=== PATIENT | female | born 1980 | race Caucasian/White ===

== ENCOUNTER 2016-10-26 18:56 | Emergency (ER) | payer OTHER ==
[~2016-10-26] VITALS: Ht 175.3 cm; Wt 104.0 kg
[~2016-10-26 18:56] MED LIST: ALBU8.5H3 IH; ALPR1TAB PO; ALPR1TAB2 PO; CIPR500T PO; CITA40TA12 PO; CYCL10TA2 PO; DIPH25CA58 PO; DOXY100C2 PO; MIRANA; NAPR500T PO; ONDA4TAB10 PO; ONDA8TAB12 PO; PRED50TA PO; PROM25TA10 PO; TRAM50TA PO
--- NOTE | 2016-10-26 18:59 | ED.ADGEN ---
Past History Past Medical History: Anxiety, Asthma, Bipolar, Depression, Hypertension, UTI, Other Past Surgical History: Cholecystectomy, Other Smoking: Less than 1pk/day Alcohol Use: None Drug Use: Marijuana Adult General Chief Complaint Chief Complaint ".. I was working outside... and got really dizzy... and I got worried .. because .. I ve had a recently had a MRI.. and they said it had black spots... I am to follow up a [facility].... they think I may have MS or something... . I see Dr. Schwartz here locally..." HPI HPI Patient is a 36 year old female who presents with above hx and complaints. She states dizziness was episodic. It is not resolved. Patient denies any focal deficits currently. Patient has follow up with [facility] and primary. Patient does still smoke. She has extensive medical history including coronary artery disease and COPD. Recent diagnosis of abnormal findings on MRI possible MS. Review of Systems Review of Systems Constitutional: Denies fever or chills [] Eyes: Denies change in visual acuity, redness, or eye pain [] HENT: Denies nasal congestion or sore throat [] Respiratory: Denies cough or shortness of breath [] Cardiovascular: No additional information not addressed in HPI [] GI: Denies abdominal pain, nausea, vomiting, bloody stools or diarrhea [] : Denies dysuria or hematuria [] Musculoskeletal: Denies back pain or joint pain [] Integument: Denies rash or skin lesions [] Neurologic: Denies headache, focal weakness or sensory changes. Complaints of episodic dizziness Endocrine: Denies polyuria or polydipsia [] Family History Family History Noncontributory Current Medications Current Medications Current Medications Medications (Trade) Dose Ordered Sig/Brian Start Time Stop Time Status Last Admin Dose Admin Aspirin 324 mg 324 mg 1X ONCE 10/26/16 19:30 10/26/16 19:32 DC 10/26/16 19:30 324 MG Lactated Ringer's (Iv Lactated Ringers) 1,000 ml @ 1,000 mls/hr Q1H 10/26/16 19:30 10/26/16 21:57 DC 10/26/16 19:53 1,000 MLS/HR Potassium Chloride (KCl Oral Soln) 40 meq 1X ONCE 10/26/16 22:00 10/26/16 22:00 DC 10/26/16 21:52 40 MEQ Allergies Allergies Allergies Coded Allergies Type Severity Reaction Last Updated Verified hydrocodone Allergy Unknown 05/04/16 Yes Physical Exam Physical Exam Constitutional: no acute distress, non-toxic appearance. [] HENT: Normocephalic, atraumatic, bilateral external ears normal, oropharynx moist, no oral exudates, nose normal. [] Eyes: PERRLA, EOMI, conjunctiva normal, no discharge. [] Neck: Normal range of motion, no tenderness, supple, no stridor. [] No carotid bruits appreciated Cardiovascular:Heart rate regular rhythm, no murmur, PMI to the left Lungs & Thorax: Bilateral breath sounds equal with scattered wheezes on auscultation [] Abdomen: Bowel sounds normal, soft, no tenderness, no masses, no pulsatile masses. Obese. Old surgical scar. Skin: Warm, dry, no erythema, no rash. [] Back: No tenderness, no CVA tenderness. [] Extremities: No tenderness, no cyanosis, no clubbing, ROM intact, no edema. [] No cording appreciated Neurologic: Alert and oriented X 3, normal motor function, normal sensory function, no focal deficits noted. No drift. DTRs +2. Patella and brachial. Romberg. Patient ambulatory without problems. Psychologic: Affect anxious, judgement normal, mood normal. [] Current Patient Data Vital Signs Vital Signs Date Time Temp Pulse Resp B/P Pulse Ox O2 Delivery O2 Flow Rate FiO2 10/26/16 19:00 98.1 99 20 97 Room Air Lab Results Laboratory Tests Test 10/26/16 19:18 White Blood Count 8.8x10^3/uL (4.0-11.0) Red Blood Count 4.54x10^6/uL (3.50-5.40) Hemoglobin 13.8g/dL (12.0-15.5) Hematocrit 40.1% (36.0-47.0) Mean Corpuscular Volume 88fL (79-100) Mean Corpuscular Hemoglobin 30pg (25-35) Mean Corpuscular Hemoglobin Concent 34g/dL (31-37) Red Cell Distribution Width 12.7% (11.5-14.5) Platelet Count 242x10^3/uL (140-400) Neutrophils (%) (Auto) 52% (31-73) Lymphocytes (%) (Auto) 39% (24-48) Monocytes (%) (Auto) 6% (0-9) Eosinophils (%) (Auto) 2% (0-3) Basophils (%) (Auto) 1% (0-3) Neutrophils # (Auto) 4.6x10^3uL (1.8-7.7) Lymphocytes # (Auto) 3.5x10^3/uL (1.0-4.8) Monocytes # (Auto) 0.5x10^3/uL (0.0-1.1) Eosinophils # (Auto) 0.1x10^3/uL (0.0-0.7) Basophils # (Auto) 0.1x10^3/uL (0.0-0.2) Erythrocyte Sedimentation Rate 22 (0-25) Prothrombin Time 10.2SEC (9.4-11.4) Prothrombin Time INR 1.0 (0.9-1.1) PTT 46SEC (23-33) H D-Dimer (Ce) 0.57mg/L (0.00-0.50) H Urine Collection Type Unknown Urine Color Yellow Urine Clarity Clear Urine pH 5.5 Urine Specific [place] 1.015 Urine Protein Neg (NEG-TRACE) Urine Glucose (UA) Negmg/dL (NEG) Urine Ketones (Stick) Negmg/dL (NEG) Urine Blood Trace (NEG) Urine Nitrite Neg (NEG) Urine Bilirubin Neg (NEG) Urine Urobilinogen Dipstick 0.2mg/dL (0.2 mg/dL) Urine Leukocyte Esterase Neg (NEG) Urine RBC 0/HPF (0-2) Urine WBC Occ/HPF (0-4) Urine Squamous Epithelial Cells Occ/LPF Urine Bacteria 0/HPF (0-FEW) Sodium Level 139mmol/L (136-145) Potassium Level 3.4mmol/L (3.5-5.1) L Chloride Level 104mmol/L (98-107) Carbon Dioxide Level 28mmol/L (21-32) Anion Gap 7 (6-14) Blood Urea Nitrogen 11mg/dL (7-20) Creatinine 0.9mg/dL (0.6-1.0) Estimated GFR (Cockcroft-Gault) 70.5 Glucose Level 107mg/dL (70-99) H Calcium Level 8.6mg/dL (8.5-10.1) Magnesium Level 1.9mg/dL (1.8-2.4) Total Bilirubin 0.5mg/dL (0.2-1.0) Direct Bilirubin 0.1mg/dL (0.0-0.2) Aspartate Amino Transferase (AST) 16U/L (15-37) Alanine Aminotransferase (ALT) 21U/L (14-59) Alkaline Phosphatase 75U/L (46-116) Creatine Kinase 75U/L (26-192) Creatine Kinase MB (Mass) 0.5ng/mL (0.0-3.6) Creatine Kinase MB Relative Index 0.7% (0-4) Troponin I Quantitative < 0.017ng/mL (0-0.055) C-Reactive Protein 2.6mg/L (0-3.3) QM-Cyg-P-Type Natriuretic Peptide 215pg/mL (0-124) H Total Protein 7.4g/dL (6.4-8.2) Albumin 3.9g/dL (3.4-5.0) Lipase 153U/L (73-393) Urine Opiates Screen Neg (NEG) Urine Methadone Screen Neg (NEG) Urine Barbiturates Neg (NEG) Urine Phencyclidine Screen Neg (NEG) Urine Amphetamine/Methamphetamine Neg (NEG) Urine Benzodiazepines Screen Neg (NEG) Urine Cocaine Screen Neg (NEG) Urine Cannabinoids Screen Neg (NEG) Urine Ethyl Alcohol Neg (NEG) EKG EKG I interpretation EKG shows a sinus rhythm at 83. No findings of acute STEMI. Does have some leftward axis. [] Radiology/Procedures Radiology/Procedures I interpretation of chest x-ray shows no acute cardiopulmonary changes. Mild chronic changes but no obvious interval changes. My interpretation of CT head shows no shift, mass, edema, bleed, or fracture. No obvious interval changes. Does appear to be some movement artifact. [] Course & Med Decision Making Course & Med Decision Making Pertinent Labs and Imaging studies reviewed. (See chart for details). Patient requesting discharge. Patient declines admission at this time. Patient encouraged to stop smoking. Patient keep follow-up primary care and neurology. Patient return if any concerns. Patient continued daily aspirin. Patient to push fruit juices. Pt. exhibits UCAR capacity and seems aware of risks of discharge with out adequate evaluation . [] Final Impression Final Impression 1. Dizziness 2. COPD 3. History of coronary artery disease 4. Recent reported abnormalities on MRI suggestive of MS - per pt. 5. Hypokalemia 6. Tobacco abuse [] Problems: Dragon Disclaimer Dragon Disclaimer This electronic medical record was generated, in whole or in part, using a voice recognition dictation system. BALDO OSULLIVAN MD Oct 26, 2016 18:58
[2016-10-26] MEDS ORDERED: ASPIRIN 81 MG TAB.CHEW PO ONE (19:30)
[2016-10-26] MEDS ORDERED: IV RINGERS SOLUTION,LACTATED 1,000 ML IV SCH (19:30)
[2016-10-26 19:41] LABS: BASO # 0.1 x10^3/uL (0.0-0.2); BASO % 1 % (0-3); EOS # 0.1 x10^3/uL (0.0-0.7); EOS % 2 % (0-3); HEMATOCRIT 40.1 % (36.0-47.0); HEMOGLOBIN 13.8 g/dL (12.0-15.5); LYMPH # 3.5 x10^3/uL (1.0-4.8); LYMPH % 39 % (24-48); MEAN CORPUSCULAR HEMOGLOBIN 30 pg (25-35); MEAN CORPUSCULAR HGB CONC 34 g/dL (31-37); MEAN CORPUSCULAR VOLUME 88 fL (79-100); MONO # 0.5 x10^3/uL (0.0-1.1); MONO % 6 % (0-9); NEUT # 4.6 x10^3uL (1.8-7.7); NEUT % 52 % (31-73); PLATELET COUNT 242 x10^3/uL (140-400); RED BLOOD COUNT 4.54 x10^6/uL (3.50-5.40); RED CELL DISTRIBUTION WIDTH 12.7 % (11.5-14.5); WHITE BLOOD COUNT 8.8 x10^3/uL (4.0-11.0)
--- NOTE | 2016-10-26 19:46 | RAD ---
PROCEDURE CT without contrast. HISTORY Dizziness, headache today TECHNIQUE Noncontrast CT imaging was performed of the head. Exposure: One or more of the following individualized dose reduction techniques were utilized for this exam: 1. Automated exposure control. 2. Adjustment of the mA and/or kV according to patient size. 3. Use of iterative reconstruction technique. COMPARISON March 28, 2015 FINDINGS No convincing acute intracranial hemorrhage is identified. Exam is degraded by motion. There is no new intra-axial mass effect, midline shift, extra-axial fluid collection. Blackburn-white differentiation of the major vascular territories is preserved. Visualized paranasal sinuses and mastoid air cells are aerated. IMPRESSION No convincing acute intracranial abnormality is identified. Exam is degraded by motion. Electronically signed by: Allan Raphael MD (Oct 26, 2016 19:44:38)
[2016-10-26 20:02] VITALS: BP 110/63
[2016-10-26 20:08] LABS: ALBUMIN 3.9 g/dL (3.4-5.0); C REACTIVE PROTEIN 2.6 mg/L (0-3.3); CALCIUM 8.6 mg/dL (8.5-10.1); CREATININE 0.9 mg/dL (0.6-1.0); DIRECT BILIRUBIN 0.1 mg/dL (0.0-0.2); GFR 70.5; MAGNESIUM 1.9 mg/dL (1.8-2.4); POTASSIUM 3.4 mmol/L (3.5-5.1); TOTAL BILIRUBIN 0.5 mg/dL (0.2-1.0); TOTAL PROTEIN 7.4 g/dL (6.4-8.2)
[2016-10-26 20:33] LABS: AMPHETAMINE/METHAMPHETAMINE NEG (NEG); BARBITURATES NEG (NEG); BENZODIAZEPINES NEG (NEG); CANNABINOIDS NEG (NEG); COCAINE NEG (NEG); METHADONE NEG (NEG); OPIATES NEG (NEG); PHENCYCLIDINE NEG (NEG)
[2016-10-26 20:36] LABS: BILIRUBIN,URINE NEG (NEG); CLARITY,URINE CLEAR; COLOR,URINE YELLOW; GLUCOSE,URINE NEG (NEG)
[2016-10-26 20:37] LABS: BACTERIA,URINE 0 /HPF (0-FEW); NITRITE,URINE NEG (NEG); RBC,URINE 0 /HPF (0-2); SQUAMOUS EPITHELIAL CELL,UR OCC /LPF; UROBILINOGEN,URINE 0.2 mg/dL (0.2 mg/dL); WBC,URINE OCC /HPF (0-4)
[2016-10-26 20:48] LABS: SEDIMENTATION RATE 22 (0-25)
[2016-10-26] MEDS ORDERED: POTASSIUM CHLORIDE 20 MEQ/15 ML ORAL LIQUID. PO ONE (22:00)
--- NOTE | 2016-10-27 06:40 | EKG ---
[address] [address] Test Date: 2016-10-26 Test Time: 19:23:36 Pat Name: LALIT DEAN Department: Room: Gender: F Cloth Doffer: ADAN : 1980 Requested By: BALDO OSULLIVAN Order Number: [id number] Reading MD: Measurements Intervals [place] Rate: 83 P: 29 OK: 136 QRS: -20 QRSD: 84 T: 31 QT: 378 QTc: 450 Interpretive Statements SINUS RHYTHM LEFTWARD AXIS OTHERWISE NORMAL ECG RI6.01 Unconfirmed report No previous ECG available for comparison
--- NOTE | 2016-10-27 08:54 | RAD ---
Chest, 2 views, 10/26/2016: History: Chest pain, shortness of breath Comparison is made to a study from 08/20/2015. The heart size and pulmonary vascularity are normal. No pulmonary infiltrates are seen. There is no evidence of pleural fluid. IMPRESSION: No acute cardiopulmonary abnormality is detected.
== END 2016-10-26 21:55 | disposition home or self-care (01) ==
LOC: ER 18:56
DX: R42 Dizziness and giddiness (principal); E87.6 Hypokalemia; F32.9 Major depressive disorder, single episode, unspecified; F41.9 Anxiety disorder, unspecified; I10 Essential (primary) hypertension; R93.8 Abnormal findings on diagnostic imaging of other specified body structures; J44.9 Chronic obstructive pulmonary disease, unspecified; I25.10 Atherosclerotic heart disease of native coronary artery without angina pectoris; F31.9 Bipolar disorder, unspecified; F17.200 Nicotine dependence, unspecified, uncomplicated; F12.10 Cannabis abuse, uncomplicated; J45.909 Unspecified asthma, uncomplicated; Z87.440 Personal history of urinary (tract) infections; Z90.49 Acquired absence of other specified parts of digestive tract; Z88.5 Allergy status to narcotic agent
CPT/HCPCS: 36415; 70450; 71020; 80048; 80076; 80305; 81001; 81025; 82553; 83690; 83735; 83880; 84443; 84484; 85027; 85379; 85610; 85651; 85730; 86140; 93005; 96360; 96361; 99285; J7120; G0481

== ENCOUNTER 2016-12-16 08:38 | Emergency (ER) | payer OTHER ==
[~2016-12-16 08:38] MED LIST changes: -ALBU8.5H3 IH; +ALBU8.5H8 IH; +CYCL-331 PO; -CYCL10TA2 PO
[2016-12-16] MEDS ORDERED: FLUT9.9S NS (09:25)
[2016-12-16] MEDS ORDERED: IBUP400T18 PO (09:25)
--- NOTE | 2016-12-16 09:25 | PHYS DOC ---
Past History Past Medical History: Anxiety, Asthma, Bipolar, Depression, Hypertension, UTI, Other Past Surgical History: Cholecystectomy, Other Smoking: Less than 1pk/day Alcohol Use: None Drug Use: Marijuana Adult General Chief Complaint Chief Complaint: COUGH HPI HPI 36-year-old female presenting to the emergency department today with runny nose and congestion with a cough. She denies fevers. She denies chest pain shortness of breath or chills. It started about 24 hours ago. She is taking ibuprofen which has mildly improved her symptoms. She has a history of allergies and she reports it feeling similar. Location sinuses upper respiratory tract. Duration intermittent. Review of systems is negative for chest pain shortness of breath abdominal pain. She did have one episode of posttussis emesis but denies being nauseated currently. All other review of systems is negative unless otherwise noted in history of present illness. Review of Systems Review of Systems SEE ABOVE. Allergies Allergies Allergies Coded Allergies Type Severity Reaction Last Updated Verified hydrocodone Allergy Unknown 05/04/16 Yes Physical Exam Physical Exam Constitutional: Well developed, well nourished, no acute distress, non-toxic appearance. HENT: Normocephalic, atraumatic, bilateral external ears normal, oropharynx moist, no oral exudates, nose normal. Mild rhinorrhea present. Mild tenderness to percussion of the sinuses. No erythema of the skin. Eyes: PERRLA, EOMI, conjunctiva normal, no discharge. Neck: Normal range of motion, no tenderness, supple, no stridor. [] Cardiovascular:Heart rate regular rhythm, no murmur Lungs & Thorax: Bilateral breath sounds clear to auscultation Abdomen: Bowel sounds normal, soft, no tenderness, no masses, no pulsatile masses. [] Skin: Warm, dry, no erythema, no rash. Back: No tenderness, no CVA tenderness. [] Extremities: No tenderness, no cyanosis, no clubbing, ROM intact, no edema. Neurologic: Alert and oriented X 3, normal motor function, normal sensory function, no focal deficits noted. [] Psychologic: Affect normal, judgement normal, mood normal. [] EKG EKG [] Radiology/Procedures Radiology/Procedures [] Course & Med Decision Making Course & Med Decision Making Pertinent Labs and Imaging studies reviewed. (See chart for details) [] 36-year-old female presenting to the emergency department today with congestion and rhinorrhea and cough. Differential diagnosis allergic rhinitis versus acute viral sinusitis. I recommended [id number] symptomatic care including Flonase and nasal rinses to follow-up with her primary care physician over the next 4-5 days. The patient was then discharged home in stable condition to follow up with their primary care physician. They were to return if their symptoms worsened or if they were concerned for any reason. Face-to- face discharge instructions and return precautions were given. Patient's questions were answered to their satisfaction. Patient is comfortable plan. Dragon Disclaimer Dragon Disclaimer This chart was dictated in whole or in part using Voice Recognition software in a busy, high-work load, and often noisy Emergency Department environment. It may contain unintended and wholly unrecognized errors or omissions. Departure Departure: Impression: Primary Impression: Nasal congestion Additional Impressions: Rhinorrhea Cough Disposition: HOME, SELF-CARE Condition: STABLE Referrals: JAKUB SANTIAGO (PCP) Patient Instructions: Allergic Rhinitis, Cough, Adult Additional Instructions: Thank you for allowing us to participate in your care today. Followup with your primary care physician in 3 days if your symptoms do not improve. If you do not have a primary care provider you can ask for a list of our primary care providers. Return to the emergency department you have any new or concerning findings. This should be evaluated by the primary care physician and any necessary consulting services for continued management within a few days after discharge. Return to emergency room if you have any new or concerning symptoms including but not limited to fever, chills, nausea, vomiting, intractable pain, any new rashes, chest pain, shortness of air, uncontrolled bleeding, difficulty breathing, and/or vision loss. Scripts Ibuprofen (IBUPROFEN) 400 Mg Tablet 1 TAB PO PRN Q8HRS Y for PAIN, #20 TAB Prov: JOS ACOSTA MD 12/16/16 Fluticasone Propionate (Flonase Allergy Relief) 9.9 Ml Gordon.susp 2 SPRAYS NS DAILY for 7 Days, BOTTLE Prov: JOS ACOSTA MD 12/16/16 Problem Qualifiers JOS ACOSTA MD December 16, 2016 09:25
[2016-12-16 10:00] VITALS: BP 112/49
== END 2016-12-16 10:01 | disposition home or self-care (01) ==
LOC: ER 08:38
DX: R05 Cough (principal); R09.81 Nasal congestion; J34.89 Other specified disorders of nose and nasal sinuses; J45.909 Unspecified asthma, uncomplicated; I10 Essential (primary) hypertension; F17.200 Nicotine dependence, unspecified, uncomplicated; F12.10 Cannabis abuse, uncomplicated; Z87.440 Personal history of urinary (tract) infections; Z88.5 Allergy status to narcotic agent
CPT/HCPCS: 81025; 84703; 99283

== ENCOUNTER 2017-01-26 19:27 | Emergency (ER) | payer SELFPAY ==
[~2017-01-26] VITALS: Ht 175.3 cm; Wt 104.0 kg
[2017-01-26 19:27] VITALS: BP 127/90
[~2017-01-26 19:27] MED LIST changes: +FLUT9.9S NS; +IBUP400T18 PO
[2017-01-26] MEDS ORDERED: SULF1TAB24 PO (19:51)
[2017-01-26] MEDS ORDERED: MUPI22OI2 TP (19:51)
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
== END 2017-01-26 19:54 | disposition home or self-care (01) ==
LOC: ER 19:27
DX: L03.311 Cellulitis of abdominal wall (principal); F17.200 Nicotine dependence, unspecified, uncomplicated; F12.10 Cannabis abuse, uncomplicated; Z88.6 Allergy status to analgesic agent
CPT/HCPCS: 99283

== ENCOUNTER 2017-01-30 01:26 | Emergency (ER) | payer SELFPAY ==
[~2017-01-30 01:26] MED LIST changes: +MUPI22OI2 TP; +SULF1TAB24 PO
[2017-01-30 01:30] VITALS: BP 124/57
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
[2017-01-30] MEDS ORDERED: NAPR500T3 PO (01:53)
--- NOTE | 2017-01-30 07:22 | RAD ---
Right foot, 3 views, 01/30/2017: History: Injury, pain No fracture or dislocation is identified. There is a moderate sized inferior calcaneal spur. There is mild subcutaneous edema. IMPRESSION: No acute bony abnormality is detected.
== END 2017-01-30 02:00 | disposition home or self-care (01) ==
LOC: ER 01:26
DX: S90.31XA Contusion of right foot, initial encounter (principal); E11.9 Type 2 diabetes mellitus without complications; I50.9 Heart failure, unspecified; F31.9 Bipolar disorder, unspecified; G43.909 Migraine, unspecified, not intractable, without status migrainosus; I25.2 Old myocardial infarction; F17.200 Nicotine dependence, unspecified, uncomplicated; F12.10 Cannabis abuse, uncomplicated; Z88.6 Allergy status to analgesic agent; W20.8XXA Other cause of strike by thrown, projected or falling object, initial encounter; Y93.89 Activity, other specified; Y99.8 Other external cause status; Y92.89 Other specified places as the place of occurrence of the external cause
CPT/HCPCS: 73630; 99284

== ENCOUNTER 2017-03-04 20:12 | Emergency (ER) | payer SELFPAY ==
[~2017-03-04 20:12] MED LIST changes: +NAPR500T3 PO
[2017-03-04 20:45] VITALS: BP 124/83
[2017-03-04 22:21] LABS: BASO % 0 % (0-3); EOS # 0.1 x10^3/uL (0.0-0.7); EOS % 1 % (0-3); HEMATOCRIT 42.1 % (36.0-47.0); HEMOGLOBIN 14.6 g/dL (12.0-15.5); LYMPH # 3.3 x10^3/uL (1.0-4.8); LYMPH % 37 % (24-48); MEAN CORPUSCULAR HEMOGLOBIN 31 pg (25-35); MEAN CORPUSCULAR HGB CONC 35 g/dL (31-37); MEAN CORPUSCULAR VOLUME 88 fL (79-100); MONO # 0.7 x10^3/uL (0.0-1.1); MONO % 8 % (0-9); NEUT # 4.8 x10^3uL (1.8-7.7); NEUT % 54 % (31-73); PLATELET COUNT 216 x10^3/uL (140-400); RED BLOOD COUNT 4.76 x10^6/uL (3.50-5.40); RED CELL DISTRIBUTION WIDTH 13.2 % (11.5-14.5); WHITE BLOOD COUNT 8.9 x10^3/uL (4.0-11.0)
[2017-03-04 22:24] LABS: CALCIUM 8.4 mg/dL (8.5-10.1); CREATININE 0.9 mg/dL (0.6-1.0); GFR 70.1; POTASSIUM 3.5 mmol/L (3.5-5.1)
[2017-03-04 22:34] LABS: PREG TEST PT QUAL NEGATIVE (NEG)
[2017-03-04] MEDS ORDERED: NAPROXEN 500 MG TABLET PO ONE (22:45)
--- NOTE | 2017-03-04 23:01 | RAD ---
EXAM: CT HEAD WITHOUT CONTRAST. HISTORY: Fall, headache, nausea, visual disturbances, syncope. TECHNIQUE: Computed tomography of the head was performed without intravenous contrast. COMPARISON: December 26, 2016. FINDINGS: There is no intracranial hemorrhage. Blackburn-white differentiation is preserved. The ventricles are normal in size and position. The visualized paranasal sinuses appear clear. The orbits are unremarkable. The temporal bones are unremarkable. The calvarium reveals no suspicious lesions. IMPRESSION: 1. No acute intracranial findings. *One or more of the following individualized dose reduction techniques were utilized for this examination: 1. Automated exposure control. 2. Adjustment of the mA and/or kV according to patient size. 3. Use of iterative reconstruction technique. Electronically signed by: Ale Raya MD (03/04/2017 10:58 PM) [facility]
--- NOTE | 2017-03-04 23:25 | EKG ---
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
--- NOTE | 2017-03-05 06:09 | ED.ADGEN ---
Past History Past Medical History: Anxiety, Depression Past Surgical History: Cholecystectomy Smoking: Less than 1pk/day Alcohol Use: None Drug Use: Marijuana Adult General Chief Complaint Chief Complaint Syncope HPI HPI Patient is a 37-year-old female presents with syncopal episode after taking Xanax. Patient reports falling off her bed and hitting the back of her head. The incident occurred approximately 10 hours prior to ED arrival. Patient reports dull throbbing headache, nausea without vomiting. She denies neck pain. Denies chest pain shortness breath palpitations or feeling lightheaded or dizziness upon standing. No other acute symptoms or complaints. Review of Systems Review of Systems ROS as per HPI. Current Medications Current Medications Current Medications Medications (Trade) Dose Ordered Sig/Brian Start Time Stop Time Status Last Admin Dose Admin Naproxen (Naprosyn) 500 mg 1X ONCE 03/04/17 22:45 03/04/17 22:46 DC 03/04/17 22:45 500 MG Allergies Allergies Allergies Coded Allergies Type Severity Reaction Last Updated Verified hydrocodone Allergy Unknown 05/04/16 Yes Physical Exam Physical Exam Constitutional: Well developed, well nourished, no acute distress. HENT: Normocephalic, atraumatic, bilateral external ears normal, oropharynx moist, no oral exudates, nose normal. Eyes: PERRLA, EOMI, conjunctiva normal. Neck: Normal range of motion, no midline TTP. Cardiovascular:Heart rate regular rhythm. Lungs & Thorax: Bilateral breath sounds clear to auscultation. Abdomen: Bowel sounds normal, soft, no tenderness. Skin: Warm, dry, no erythema. Back: No tenderness. Extremities: No tenderness. Neurologic: Alert and oriented X 3, normal motor function, normal sensory function, no focal deficits noted. Psychologic: Affect normal, judgement normal, mood normal. Current Patient Data Vital Signs Vital Signs Date Time Temp Pulse Resp B/P (MAP) Pulse Ox O2 Delivery O2 Flow Rate FiO2 03/04/17 20:45 97.8 90 20 97 Room Air Lab Results Laboratory Tests Test 03/04/17 22:00 White Blood Count 8.9 x10^3/uL (4.0-11.0) Red Blood Count 4.76 x10^6/uL (3.50-5.40) Hemoglobin 14.6 g/dL (12.0-15.5) Hematocrit 42.1 % (36.0-47.0) Mean Corpuscular Volume 88 fL (79-100) Mean Corpuscular Hemoglobin 31 pg (25-35) Mean Corpuscular Hemoglobin Concent 35 g/dL (31-37) Red Cell Distribution Width 13.2 % (11.5-14.5) Platelet Count 216 x10^3/uL (140-400) Neutrophils (%) (Auto) 54 % (31-73) Lymphocytes (%) (Auto) 37 % (24-48) Monocytes (%) (Auto) 8 % (0-9) Eosinophils (%) (Auto) 1 % (0-3) Basophils (%) (Auto) 0 % (0-3) Neutrophils # (Auto) 4.8 x10^3uL (1.8-7.7) Lymphocytes # (Auto) 3.3 x10^3/uL (1.0-4.8) Monocytes # (Auto) 0.7 x10^3/uL (0.0-1.1) Eosinophils # (Auto) 0.1 x10^3/uL (0.0-0.7) Basophils # (Auto) 0.0 x10^3/uL (0.0-0.2) Sodium Level 140 mmol/L (136-145) Potassium Level 3.5 mmol/L (3.5-5.1) Chloride Level 105 mmol/L (98-107) Carbon Dioxide Level 29 mmol/L (21-32) Anion Gap 6 (6-14) Blood Urea Nitrogen 14 mg/dL (7-20) Creatinine 0.9 mg/dL (0.6-1.0) Estimated GFR (Cockcroft-Gault) 70.1 Glucose Level 107 mg/dL (70-99) H Calcium Level 8.4 mg/dL (8.5-10.1) L Serum Test, Qualitative Negative (NEG) EKG EKG [] Radiology/Procedures Radiology/Procedures [CT head: NAD] Course & Med Decision Making Course & Med Decision Making Pertinent Labs and Imaging studies reviewed. (See chart for details) [No focal neurologic deficits. Typical closed head injury instructions provided. ] Final Impression Final Impression [1. Syncope 2. Concussion] Problems: Dragon Disclaimer Dragon Disclaimer This electronic medical record was generated, in whole or in part, using a voice recognition dictation system. SIGRID LYLE DO Mar 05, 2017 06:09
== END 2017-03-04 23:18 | disposition home or self-care (01) ==
LOC: ER 20:12
DX: S06.0X9A Concussion with loss of consciousness of unspecified duration, initial encounter (principal); R55 Syncope and collapse; F17.200 Nicotine dependence, unspecified, uncomplicated; F12.10 Cannabis abuse, uncomplicated; Z88.5 Allergy status to narcotic agent; W06.XXXA Fall from bed, initial encounter; Y93.89 Activity, other specified; Y99.8 Other external cause status; Y92.89 Other specified places as the place of occurrence of the external cause
CPT/HCPCS: 36415; 70450; 80048; 84703; 85027; 93005; 99285-25

== ENCOUNTER 2017-04-15 11:03 | Emergency (ER) | payer SELFPAY ==
[~2017-04-15] VITALS: Ht 175.3 cm; Wt 102.1 kg
--- NOTE | 2017-04-15 12:18 | PHYS DOC ---
General Chief Complaint: COUGH Stated Complaint: COUGH Time Seen by MD: 11:19 Source: patient, old records Exam Limitations: no limitations Problems: History of Present Illness Initial Comments Pt is 37/F to ED c/o cough. Pt states for past three days she's had dry cough, sneezing, watery eyes, clear nasal discharge. OTC zyrtec not helping, pt has h/o asthma but denies sob/ wheeze/cp. Continues to smoke cigarettes denies other substance abuse. No fever/chills/n/v. States she likely wouldn't have sought treatment but her two daughters missed last two days of school and need note for return, all three are checked in to be seen. Requests proair refill Timing/Duration: constant (3 days) Severity: moderate Modifying Factors: improves with other Associated Symptoms: cough, other Allergies: Coded Allergies: hydrocodone (Verified Allergy, Unknown, 05/04/16) Past Medical History Medical History: no pertinent history, other (anxiety, depression, DM (sugars running 110's per pt), asthma, HTN) Surgical History: cholecystectomy, other Family History Significant Family History: no pertinent family hx Social History Smoker: less than 1 pack/day Alcohol: none Drugs: none Review of Systems Constitutional: denies chills, denies diaphoresis, denies fever, denies malaise EENTM: see HPI, denies eye pain, tearing, denies ear pain, denies ear discharge Respiratory: see HPI, denies shortness of breath Cardiovascular: denies chest pain, denies palpitations, denies syncope Gastrointestinal: denies abdominal pain, denies nausea, denies vomiting Musculoskeletal: denies back pain, denies joint swelling, denies neck pain Psychiatric/Neurological: denies headache, denies numbness, denies paresthesia Physical Exam General Appearance: no apparent distress, obese Eyes: bilateral eye PERRL, bilateral eye EOMI, bilateral eye other ( conjunctivae injected) Ear, Nose, Throat: other (turbs inflamed, clear nasal/PND, airway patent no swell/erythema) Neck: non-tender, supple Respiratory: normal breath sounds, no respiratory distress Cardiovascular: normal peripheral pulses, regular rate, rhythm Gastrointestinal: non tender, soft Back: no CVA tenderness, no vertebral tenderness Extremities: non-tender, normal inspection Neurologic/Psychiatric: ceiling insulation blower II-XII nml as tested, alert, oriented x 3 Skin: normal color, warm/dry Departure Time of Disposition: 12:12 Disposition: 01 HOME, SELF-CARE Diagnosis: allergic rhinitis, tobaccoism, asthma history Condition: GOOD Patient Instructions: Allergic Rhinitis, Smoking Hazards Additional Instructions: Continue to cut down/discontinue smoking cigarettes. Try to avoid environmental allergens, shower before bed, change sheets today. OTC tylenol/ibuprofen as needed. OTC zyrtec (cetirizine) in am, diphenhydramine (benadryl) for pm symptoms. OTC afrin for nasal drainage/congestion instructions per package. Increase you proair inhaler use to every 4 hours round the clock. Follow up with your doctor Thursday if not better. Return to ED with new or changing symptoms. RIGOBERTO GARDINER DO Apr 15, 2017 12:18
[2017-04-15 12:20] VITALS: BP 121/75
[2017-04-15] MEDS ORDERED: ALBU8.5H8 INH (12:20)
== END 2017-04-15 12:25 | disposition home or self-care (01) ==
LOC: ER 11:03
DX: J30.9 Allergic rhinitis, unspecified (principal); J45.909 Unspecified asthma, uncomplicated; F17.210 Nicotine dependence, cigarettes, uncomplicated; I10 Essential (primary) hypertension; E11.9 Type 2 diabetes mellitus without complications; Z88.5 Allergy status to narcotic agent
CPT/HCPCS: 99282

== ENCOUNTER 2017-04-27 15:14 | Observation (INO) | payer SELFPAY ==
[~2017-04-27] VITALS: Ht 175.3 cm; Wt 99.8 kg
[~2017-04-27 15:14] MED LIST changes: +ALBU8.5H8 INH
[2017-04-27 16:54] LABS: BASO % 0 % (0-3); EOS # 0.1 x10^3/uL (0.0-0.7); EOS % 1 % (0-3); HEMATOCRIT 43.7 % (36.0-47.0); HEMOGLOBIN 15.5 g/dL (12.0-15.5); LYMPH # 3.2 x10^3/uL (1.0-4.8); LYMPH % 36 % (24-48); MEAN CORPUSCULAR HEMOGLOBIN 31 pg (25-35); MEAN CORPUSCULAR HGB CONC 36 g/dL (31-37); MEAN CORPUSCULAR VOLUME 88 fL (79-100); MONO # 0.5 x10^3/uL (0.0-1.1); MONO % 6 % (0-9); NEUT # 5.1 x10^3uL (1.8-7.7); NEUT % 57 % (31-73); PLATELET COUNT 275 x10^3/uL (140-400); RED BLOOD COUNT 4.94 x10^6/uL (3.50-5.40); RED CELL DISTRIBUTION WIDTH 13.4 % (11.5-14.5)
[2017-04-27] MEDS: IV NORMAL SALINE 1,000ML 1,000 ML IV SCH (17:00)
--- NOTE | 2017-04-27 17:14 | PHYS DOC ---
Past History Past Medical History: Anxiety Past Surgical History: No Surgical History Smoking: Less than 1pk/day Alcohol Use: Occasionally Drug Use: Marijuana Adult General Chief Complaint Chief Complaint: CHEST PAIN HPI HPI Patient is a 37 year old F who presents with intermittent central chest pressure that is worse with activity. Jennifer states that her pain occasionally radiates to the left arm and is associated with shortness of breath. She states that these symptoms started last night and recurred again this morning. Her pain had resolved prior to arrival to the emergency room without intervention. However during her evaluation her pain recurred. Review of Systems Review of Systems Constitutional: Denies fever or chills [] Eyes: Denies change in visual acuity, redness, or eye pain [] HENT: Denies nasal congestion or sore throat [] Respiratory: Denies cough or shortness of breath [] Cardiovascular: No additional information not addressed in HPI [] GI: Denies abdominal pain, nausea, vomiting, bloody stools or diarrhea [] : Denies dysuria or hematuria [] Musculoskeletal: Denies back pain or joint pain [] Integument: Denies rash or skin lesions [] Neurologic: Denies headache, focal weakness or sensory changes [] Endocrine: Denies polyuria or polydipsia [] Family History Family History History was reviewed Current Medications Current Medications Current Medications Medications (Trade) Dose Ordered Sig/Brian Start Time Stop Time Status Last Admin Dose Admin Sodium Chloride 1,000 ml @ 100 mls/hr Q10H 04/27/17 16:30 04/28/17 02:29 04/27/17 17:00 100 MLS/HR Allergies Allergies Allergies Coded Allergies Type Severity Reaction Last Updated Verified hydrocodone Allergy Unknown 05/04/16 Yes Physical Exam Physical Exam Constitutional: Well developed, well nourished, no acute distress, non-toxic appearance. [] HENT: Normocephalic, atraumatic, bilateral external ears normal, oropharynx moist, no oral exudates, nose normal. [] Eyes: PERRLA, EOMI, conjunctiva normal, no discharge. [] Neck: Normal range of motion, no tenderness, supple, no stridor. [] Cardiovascular:Heart rate regular rhythm, Lungs & Thorax: Bilateral breath sounds clear to auscultation [] Abdomen: Bowel sounds normal, soft, no tenderness, no masses, no pulsatile masses. [] Skin: Warm, dry, no erythema, no rash. [] Back: No tenderness, no CVA tenderness. [] Extremities: No tenderness, no cyanosis, no clubbing, ROM intact, no edema. [] Neurologic: Alert and oriented X 3, normal motor function, normal sensory function, no focal deficits noted. [] Psychologic: Affect normal, judgement normal, mood normal. [] Current Patient Data Vital Signs Vital Signs Date Time Temp Pulse Resp B/P (MAP) Pulse Ox O2 Delivery O2 Flow Rate FiO2 04/27/17 15:20 98.2 83 18 100 Room Air Lab Results Laboratory Tests Test 04/27/17 16:32 White Blood Count 9.0 x10^3/uL (4.0-11.0) Red Blood Count 4.94 x10^6/uL (3.50-5.40) Hemoglobin 15.5 g/dL (12.0-15.5) Hematocrit 43.7 % (36.0-47.0) Mean Corpuscular Volume 88 fL (79-100) Mean Corpuscular Hemoglobin 31 pg (25-35) Mean Corpuscular Hemoglobin Concent 36 g/dL (31-37) Red Cell Distribution Width 13.4 % (11.5-14.5) Platelet Count 275 x10^3/uL (140-400) Neutrophils (%) (Auto) 57 % (31-73) Lymphocytes (%) (Auto) 36 % (24-48) Monocytes (%) (Auto) 6 % (0-9) Eosinophils (%) (Auto) 1 % (0-3) Basophils (%) (Auto) 0 % (0-3) Neutrophils # (Auto) 5.1 x10^3uL (1.8-7.7) Lymphocytes # (Auto) 3.2 x10^3/uL (1.0-4.8) Monocytes # (Auto) 0.5 x10^3/uL (0.0-1.1) Eosinophils # (Auto) 0.1 x10^3/uL (0.0-0.7) Basophils # (Auto) 0.0 x10^3/uL (0.0-0.2) Troponin I Quantitative < 0.017 ng/mL (0-0.055) EKG EKG Initial EKG showed sinus rhythm with no ST segment changes. Follow-up EKG after the onset of pain showed no changes from previous Radiology/Procedures Radiology/Procedures [] Course & Med Decision Making Course & Med Decision Making Pertinent Labs and Imaging studies reviewed. (See chart for details) Admission was recommended for ACS rule out Dragon Disclaimer Dragon Disclaimer This chart was dictated in whole or in part using Voice Recognition software in a busy, high-work load, and often noisy Emergency Department environment. It may contain unintended and wholly unrecognized errors or omissions. Departure Departure: Impression: Primary Impression: Chest pain Disposition: 09 ADMITTED INPATIENT Condition: STABLE Referrals: JAKUB SANTIAGO (PCP) Problem Qualifiers Primary Impression: Chest pain Chest pain type: unspecified Qualified Codes: R07.9 - Chest pain, unspecified LUL LIMON MD Apr 27, 2017 17:14
[2017-04-27 17:16] LABS: ANION GAP 9 (6-14); BLOOD UREA NITROGEN 9 mg/dL (7-20); CALCIUM 8.9 mg/dL (8.5-10.1); CARBON DIOXIDE 28 mmol/L (21-32); CHLORIDE 106 mmol/L (98-107); CREATINE KINASE 69 U/L (26-192); CREATININE 0.9 mg/dL (0.6-1.0); GFR 70.1; GLUCOSE 79 mg/dL (70-99); MAGNESIUM 2.3 mg/dL (1.8-2.4); POTASSIUM 3.6 mmol/L (3.5-5.1); SODIUM 143 mmol/L (136-145)
--- NOTE | 2017-04-27 19:00 | NUR ---
Jennifer Carpio a 37 F was admitted to [facility] with c/o chest pain. Pt was oriented to room and unit policies and procedures. Admission assessment completed, pt connected to monitors. Family at bedside.
[2017-04-27 19:12] VITALS: BP 122/86
[2017-04-27] MEDS ORDERED: LISI2.5T (21:09)
[2017-04-27] MEDS ORDERED: ALPR2TAB5 (21:09)
[2017-04-27] MEDS ORDERED: LORC10TA (21:17)
[2017-04-27 23:00] VITALS: BP 123/82
[2017-04-28] MEDS: IV NORMAL SALINE 1,000ML 1,000 ML IV SCH (00:21)
[2017-04-28] MEDS ORDERED: ALPRAZolam 0.5 MG TABLET PO PRN (00:45)
[2017-04-28] MEDS ORDERED: BUDE10.2 (03:06)
[2017-04-28] MEDS ORDERED: CRAN1CAP13 PO (03:13)
[2017-04-28] MEDS ORDERED: FERR-26 PO (03:13)
[2017-04-28] MEDS ORDERED: ACETAMINOPHEN 325 MG TABLET PO PRN (03:15)
[2017-04-28 03:29] VITALS: BP 100/64
[2017-04-28 04:38] LABS: BASO % 0 % (0-3); EOS # 0.1 x10^3/uL (0.0-0.7); EOS % 2 % (0-3); HEMATOCRIT 38.7 % (36.0-47.0); HEMOGLOBIN 13.4 g/dL (12.0-15.5); LYMPH # 3.8 x10^3/uL (1.0-4.8); LYMPH % 47 % (24-48); MEAN CORPUSCULAR HEMOGLOBIN 31 pg (25-35); MEAN CORPUSCULAR HGB CONC 35 g/dL (31-37); MEAN CORPUSCULAR VOLUME 89 fL (79-100); MONO # 0.6 x10^3/uL (0.0-1.1); MONO % 7 % (0-9); NEUT # 3.5 x10^3uL (1.8-7.7); NEUT % 44 % (31-73); PLATELET COUNT 216 x10^3/uL (140-400); RED BLOOD COUNT 4.37 x10^6/uL (3.50-5.40)
[2017-04-28 04:59] LABS: ALBUMIN 3.1 g/dL (3.4-5.0); ALBUMIN/GLOBULIN RATIO 0.9 (1.0-1.7); CREATININE 0.8 mg/dL (0.6-1.0); GFR 80.3; TOTAL BILIRUBIN 0.5 mg/dL (0.2-1.0); TOTAL PROTEIN 6.6 g/dL (6.4-8.2)
[2017-04-28 05:19] VITALS: BP 92/60
--- NOTE | 2017-04-28 08:30 | NUR ---
Pt denies chest pain, SOA or dyspnea. States she feelings of anxiety and then starts to have pain. Waiting for Cardiology to see patient.
--- NOTE | 2017-04-28 09:32 | PDOC ---
DOMINICK PINZON [employer] TE[employer] 04/28/17 0932: PROGRESS NOTES Diagnosis Problem Problems Medical Problems: (1) Chest pain Status: Acute Assessment This is a pleasant 37 year old female who presented to ER with chief complaint of chest pain. She has a history of gastroesophageal reflux disease, recurrent urinary tract infections, arthritis, attention deficit disorder, anxiety, and type 2 diabetes mellitus. Her pain began the night before as a Pressure in her chest that was preceded by right shoulder pain. She had some shortness of breath with her pain but not any nausea, vomiting or diaphoresis. Her pain was not related to activity and it did not seem to matter position. It does not increase with deep breathing and she tried aspirin which did not make it better. her pain lasted for over 24 hours before her friend talked her into coming to the emergency room. The last few weeks she has been having headaches and right shoulder pain so she has been taking ibuprofen twice a day. at this point she has had no cough, fever or chills. She was seen a week ago for an upper respiratory Congestion and she was started on ProAir. she continues to have rhinitis but associates that with her allergies. She denies any palpitations, PND or orthopnea. She has not been having any lower extremity edema the last several weeks. This morning her pain has resolved and she has no limits On her activity. Family History Mother- DM, HTN, Heart failure Father - HTN Social History Marital status: Diet: Regular Exercise level: Occasional Smoking Status: Current every day smoker Smoker (1 PPD) Alcohol intake: None Caffeine intake: Moderate (Notes: 6 pack of soda daily) Past Medical/Surgical History Hypertension: Y gastroesophageal reflux disease, recurrent urinary tract infections, arthritis, attention deficit disorder, anxiety, and type 2 diabetes mellitus Cholecystectomy PTSD with night terrors ROS : Review of 10 organ systems is negative except as in HPI Physical Exam Constitutional: General Appearance: obese. Level of Distress: NAD. Ambulation: ambulating normally. Psychiatric: Mental Status: normal mood and affect and active and alert. Orientation: to time, place, and person. Head: Head: normocephalic and atraumatic. Eyes: Lids and Conjunctivae: non-injected; No xanthelasma. EOM: EOMI. Lungs: Auscultation: no wheezing, rales/crackles, or rhonchi and breath sounds normal, good air movement, and CTA except as noted. Cardiovascular: Apical Impulse: not displaced. Heart Auscultation: normal S1 and S2; no murmurs, rubs, or gallops; and RRR. Neck vessels: no carotid bruits; Jugular venous pressure not elevated. Abdomen: Bowel Sounds: normal. Inspection and Palpation: soft and no tenderness. Musculoskeletal:: Motor Strength and Tone: normal tone and motor strength. Extremities: no cyanosis or edema. Neurologic: Gait and Station: normal gait. Cranial Nerves: grossly intact. Skin: Inspection and palpation: no rash or lesions. Back: Thoracolumbar Appearance: normal curvature. Procedure Documentation ELECTROCARDIOGRAM (10/10/2015): Sinus rhythm with low voltage in the chest leads and poor R wave progression. ECHOCARDIOGRAM IMPRESSION (07/11/2014): There is normal left ventricular chamber size and wall thickness with normal regional and global left ventricular systolic function with an estimated ejection fraction of 59%. The left ventricular diastolic parameters appear normal. The right ventricle appears mildly dilated but with normal function. The left atrium appears mildly dilated with an area of 20.2 cm2. The estimated pulmonary artery systolic pressure is normal at 31 mmHg. All valves are structurally and functionally normal without significant stenosis or regurgitation. Assessment / Plan 1. Chest pain, IA ruled out. Atypical. Resume PPI possible GI etiology. Plan for follow up with Dr Arce 2. History of type 2 diabetes mellitus without complication - She has diet- controlled type 2 diabetes. - Check A1c Problems: Objective Vital Signs Date Time Temp Pulse Resp B/P (MAP) Pulse Ox O2 Delivery O2 Flow Rate FiO2 04/28/17 08:30 Room Air 04/28/17 05:19 97.9 56 18 92/60 (71) 98 Intake and Output 04/29/17 07:00 Output Total 300 ml Balance -300 ml Output Urine Total 300 ml Review of Relevant I have reviewed the following items luisito (where applicable) has been applied. Labs Laboratory Tests Test 04/27/17 16:32 04/27/17 22:15 04/28/17 04:24 White Blood Count 9.0 x10^3/uL (4.0-11.0) 8.0 x10^3/uL (4.0-11.0) Red Blood Count 4.94 x10^6/uL (3.50-5.40) 4.37 x10^6/uL (3.50-5.40) Hemoglobin 15.5 g/dL (12.0-15.5) 13.4 g/dL (12.0-15.5) Hematocrit 43.7 % (36.0-47.0) 38.7 % (36.0-47.0) Mean Corpuscular Volume 88 fL (79-100) 89 fL (79-100) Mean Corpuscular Hemoglobin 31 pg (25-35) 31 pg (25-35) Mean Corpuscular Hemoglobin Concent 36 g/dL (31-37) 35 g/dL (31-37) Red Cell Distribution Width 13.4 % (11.5-14.5) 13.0 % (11.5-14.5) Platelet Count 275 x10^3/uL (140-400) 216 x10^3/uL (140-400) Neutrophils (%) (Auto) 57 % (31-73) 44 % (31-73) Lymphocytes (%) (Auto) 36 % (24-48) 47 % (24-48) Monocytes (%) (Auto) 6 % (0-9) 7 % (0-9) Eosinophils (%) (Auto) 1 % (0-3) 2 % (0-3) Basophils (%) (Auto) 0 % (0-3) 0 % (0-3) Neutrophils # (Auto) 5.1 x10^3uL (1.8-7.7) 3.5 x10^3uL (1.8-7.7) Lymphocytes # (Auto) 3.2 x10^3/uL (1.0-4.8) 3.8 x10^3/uL (1.0-4.8) Monocytes # (Auto) 0.5 x10^3/uL (0.0-1.1) 0.6 x10^3/uL (0.0-1.1) Eosinophils # (Auto) 0.1 x10^3/uL (0.0-0.7) 0.1 x10^3/uL (0.0-0.7) Basophils # (Auto) 0.0 x10^3/uL (0.0-0.2) 0.0 x10^3/uL (0.0-0.2) Sodium Level 143 mmol/L (136-145) 141 mmol/L (136-145) Potassium Level 3.6 mmol/L (3.5-5.1) 4.0 mmol/L (3.5-5.1) Chloride Level 106 mmol/L (98-107) 108 mmol/L (98-107) Carbon Dioxide Level 28 mmol/L (21-32) 25 mmol/L (21-32) Anion Gap 9 (6-14) 8 (6-14) Blood Urea Nitrogen 9 mg/dL (7-20) 9 mg/dL (7-20) Creatinine 0.9 mg/dL (0.6-1.0) 0.8 mg/dL (0.6-1.0) Estimated GFR (Cockcroft-Gault) 70.1 80.3 Glucose Level 79 mg/dL (70-99) 104 mg/dL (70-99) Calcium Level 8.9 mg/dL (8.5-10.1) 8.0 mg/dL (8.5-10.1) Magnesium Level 2.3 mg/dL (1.8-2.4) 2.0 mg/dL (1.8-2.4) Creatine Kinase 69 U/L (26-192) Creatine Kinase MB (Mass) < 0.5 ng/mL (0.0-3.6) Creatine Kinase MB Relative Index 0.7 % (0-4) Troponin I Quantitative < 0.017 ng/mL (0-0.055) < 0.017 ng/mL (0-0.055) < 0.017 ng/mL (0-0.055) MQ-Hhu-L-Type Natriuretic Peptide 96 pg/mL (0-124) BUN/Creatinine Ratio 11 (6-20) Total Bilirubin 0.5 mg/dL (0.2-1.0) Aspartate Amino Transf (AST/SGOT) 10 U/L (15-37) Alanine Aminotransferase (ALT/SGPT) 15 U/L (14-59) Alkaline Phosphatase 67 U/L (46-116) Total Protein 6.6 g/dL (6.4-8.2) Albumin 3.1 g/dL (3.4-5.0) Albumin/Globulin Ratio 0.9 (1.0-1.7) Medications Current Medications Sodium Chloride 1,000 ml @ 100 mls/hr Q10H IV Last administered on 04/28/17 00:21; Start 04/27/17 at 16:30; Stop 04/28/17 at 02:29; Status DC Alprazolam (Xanax) 2 mg PRN BID PRN PO ANXIETY / AGITATION; Start 04/28/17 at 00:45 Acetaminophen (Tylenol) 650 mg PRN Q6HRS PRN PO PAIN / TEMP Last administered on 04/28/17 03:22; Start 04/28/17 at 03:15 Active Scripts Active Proair Hfa Inhaler (Albuterol Sulfate) 8.5 Gm Hfa.aer.ad 2 Puff IH PRN Q4-6HRS Reported Probiotic Plus & Cranberry Cap (Cran/C/B.coag/Fos/L.acid/L.rha) 1 Each Capsule 1 Each PO DAILY Ferrous Sulfate 325 Mg Tablet 65 Mg PO Symbicort 160-4.5 Mcg Inhaler (Budesonide/Formoterol Fumarate) 10.2 Gm Hfa.aer.ad Belviq (Lorcaserin Hcl) 10 Mg Tablet Lisinopril 2.5 Mg Tablet 2.5 Mg DAILY Alprazolam 2 Mg Tablet BID PRN Vitals/I & O Vital Sign - Last 24 Hours 04/27/17 04/27/17 04/27/17 04/27/17 15:20 17:54 19:00 19:12 Temp 98.2 98.0 98.3 Pulse 83 80 72 Resp 18 18 20 B/P (MAP) 160/90 (113) 122/86 (98) Pulse Ox 100 100 98 O2 Delivery Room Air Room Air Room Air Room Air 04/27/17 04/28/17 04/28/17 04/28/17 23:00 03:29 05:19 08:30 Temp 98.2 98.3 97.9 Pulse 79 61 56 Resp 18 18 18 B/P (MAP) 123/82 (96) 100/64 (76) 92/60 (71) Pulse Ox 96 98 98 O2 Delivery Room Air Room Air Room Air Room Air Intake and Output 04/28/17 04/28/17 04/29/17 15:00 23:00 07:00 Output Total 300 ml Balance -300 ml MT ARCE Jr, MD 04/29/175: PROGRESS NOTES Assessment The patient was seen by Dominick Pinzon APRN and I have reviewed her findings and plan and agree with above. Due to staffing constraints, we did not have an attending available on this day to see the patient. Problems: DOMINICK PINZON APRN Apr 28, 2017 09:32 MT ARCE Jr, MD Apr 29, 2017 18:15
[2017-04-28] MEDS ORDERED: PANTOPRAZOLE 40 MG TABLET. PO SCH (09:45)
--- NOTE | 2017-04-28 09:45 | NUR ---
Pt to start on Oral Protonix and decrease motrin intake, cardiology states patient has been taking lots of motrin lately. Pt denies chest pain.
[2017-04-28] MEDS ORDERED: PANT40TA5 PO (09:48)
[2017-04-28 09:58] VITALS: BP 122/70
--- NOTE | 2017-04-28 10:21 | NUR ---
Pt discharged at this time, IV discontinued and VS stable. Pt ambulated off unit with spouse. Pt took oral protonix prior to leaving and educated on POC.
--- NOTE | 2017-04-28 14:17 | PDOC3 ---
Discharge Summary Visit Information Date of Admission: Apr 27, 2017 Date of Discharge: Apr 28, 2017 Final Diagnosis Problems Medical Problems: (1) Chest pain Status: Acute Chest pain, NV ruled out. Atypical. Resume PPI possible GI etiology. Plan for follow up with Dr Arce 2. History of type 2 diabetes mellitus without complication - She has diet- controlled type 2 diabetes. - Check A1c 3.GERD 4. TOBACCO USE DO 5. ANXIETY Problems: Brief Hospital Course Allergies Allergies Coded Allergies Type Severity Reaction Last Updated Verified hydrocodone Allergy Unknown 05/04/16 Yes Vital Signs Vital Signs Date Time Temp Pulse Resp B/P (MAP) Pulse Ox O2 Delivery O2 Flow Rate FiO2 04/28/17 09:58 98.0 61 18 122/70 (87) 97 Room Air Lab Results Laboratory Tests Test 04/27/17 16:32 04/27/17 22:15 04/28/17 04:24 White Blood Count 9.0 x10^3/uL (4.0-11.0) 8.0 x10^3/uL (4.0-11.0) Red Blood Count 4.94 x10^6/uL (3.50-5.40) 4.37 x10^6/uL (3.50-5.40) Hemoglobin 15.5 g/dL (12.0-15.5) 13.4 g/dL (12.0-15.5) Hematocrit 43.7 % (36.0-47.0) 38.7 % (36.0-47.0) Mean Corpuscular Volume 88 fL (79-100) 89 fL (79-100) Mean Corpuscular Hemoglobin 31 pg (25-35) 31 pg (25-35) Mean Corpuscular Hemoglobin Concent 36 g/dL (31-37) 35 g/dL (31-37) Red Cell Distribution Width 13.4 % (11.5-14.5) 13.0 % (11.5-14.5) Platelet Count 275 x10^3/uL (140-400) 216 x10^3/uL (140-400) Neutrophils (%) (Auto) 57 % (31-73) 44 % (31-73) Lymphocytes (%) (Auto) 36 % (24-48) 47 % (24-48) Monocytes (%) (Auto) 6 % (0-9) 7 % (0-9) Eosinophils (%) (Auto) 1 % (0-3) 2 % (0-3) Basophils (%) (Auto) 0 % (0-3) 0 % (0-3) Neutrophils # (Auto) 5.1 x10^3uL (1.8-7.7) 3.5 x10^3uL (1.8-7.7) Lymphocytes # (Auto) 3.2 x10^3/uL (1.0-4.8) 3.8 x10^3/uL (1.0-4.8) Monocytes # (Auto) 0.5 x10^3/uL (0.0-1.1) 0.6 x10^3/uL (0.0-1.1) Eosinophils # (Auto) 0.1 x10^3/uL (0.0-0.7) 0.1 x10^3/uL (0.0-0.7) Basophils # (Auto) 0.0 x10^3/uL (0.0-0.2) 0.0 x10^3/uL (0.0-0.2) Sodium Level 143 mmol/L (136-145) 141 mmol/L (136-145) Potassium Level 3.6 mmol/L (3.5-5.1) 4.0 mmol/L (3.5-5.1) Chloride Level 106 mmol/L (98-107) 108 mmol/L (98-107) Carbon Dioxide Level 28 mmol/L (21-32) 25 mmol/L (21-32) Anion Gap 9 (6-14) 8 (6-14) Blood Urea Nitrogen 9 mg/dL (7-20) 9 mg/dL (7-20) Creatinine 0.9 mg/dL (0.6-1.0) 0.8 mg/dL (0.6-1.0) Estimated GFR (Cockcroft-Gault) 70.1 80.3 Glucose Level 79 mg/dL (70-99) 104 mg/dL (70-99) Calcium Level 8.9 mg/dL (8.5-10.1) 8.0 mg/dL (8.5-10.1) Magnesium Level 2.3 mg/dL (1.8-2.4) 2.0 mg/dL (1.8-2.4) Creatine Kinase 69 U/L (26-192) Creatine Kinase MB (Mass) < 0.5 ng/mL (0.0-3.6) Creatine Kinase MB Relative Index 0.7 % (0-4) Troponin I Quantitative < 0.017 ng/mL (0-0.055) < 0.017 ng/mL (0-0.055) < 0.017 ng/mL (0-0.055) LH-Keq-J-Type Natriuretic Peptide 96 pg/mL (0-124) BUN/Creatinine Ratio 11 (6-20) Total Bilirubin 0.5 mg/dL (0.2-1.0) Aspartate Amino Transf (AST/SGOT) 10 U/L (15-37) Alanine Aminotransferase (ALT/SGPT) 15 U/L (14-59) Alkaline Phosphatase 67 U/L (46-116) Total Protein 6.6 g/dL (6.4-8.2) Albumin 3.1 g/dL (3.4-5.0) Albumin/Globulin Ratio 0.9 (1.0-1.7) Brief Hospital Course Ms. Carpio is a 37 old FEMALE WHO PRESENTED WITH CHEST PAIN. NV WAS RULED OUT. SUSPECT GERD. PLEASE SEE CARDIOLOGY CONSULT FOR FURTHER INFO PHYSICAL EXAM NEGATIVE Discharge Information Condition at Discharge: Improved, Stable Disposition/Orders: D/C to Home Dischare Medications Current Medications Sodium Chloride 1,000 ml @ 100 mls/hr Q10H IV Last administered on 04/28/17 00:21; Start 04/27/17 at 16:30; Stop 04/28/17 at 02:29; Status DC Alprazolam (Xanax) 2 mg PRN BID PRN PO ANXIETY / AGITATION; Start 04/28/17 at 00:45; Stop 04/28/17 at 10:25; Status DC Acetaminophen (Tylenol) 650 mg PRN Q6HRS PRN PO PAIN / TEMP Last administered on 04/28/17 03:22; Start 04/28/17 at 03:15; Stop 04/28/17 at 10:25; Status DC Pantoprazole Sodium (Protonix) 40 mg DAILYAC PO Last administered on 04/28/17 10:11; Start 04/28/17 at 09:45; Stop 04/28/17 at 10:25; Status DC Active Scripts Active Pantoprazole Sodium 40 Mg Tablet.dr 40 Mg PO DAILYAC 30 Days Proair Hfa Inhaler (Albuterol Sulfate) 8.5 Gm Hfa.aer.ad 2 Puff IH PRN Q4-6HRS Reported Probiotic Plus & Cranberry Cap (Cran/C/B.coag/Fos/L.acid/L.rha) 1 Each Capsule 1 Each PO DAILY Ferrous Sulfate 325 Mg Tablet 65 Mg PO Symbicort 160-4.5 Mcg Inhaler (Budesonide/Formoterol Fumarate) 10.2 Gm Hfa.aer.ad [place]q (Lorcaserin Hcl) 10 Mg Tablet Lisinopril 2.5 Mg Tablet 2.5 Mg DAILY Alprazolam 2 Mg Tablet BID PRN Patient Instructions Patient Instuctions QUIT SMOKING. TAKE PROTONIX. I DECLINED TO GIVE ANY PRESCRIPTIONS FOR XANAX. STEPHANIE SPARROW DO Apr 28, 2017 14:17
--- NOTE | 2017-04-30 08:54 | EKG ---
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
== END 2017-04-28 10:25 | disposition home or self-care (01) ==
LOC: ER 15:14 → 1 SOUTH 17:14
PROVIDERS: ADMIT Family Medicine; ATTEND Family Medicine
DX: R07.89 Other chest pain (principal); E11.9 Type 2 diabetes mellitus without complications; K21.9 Gastro-esophageal reflux disease without esophagitis; F41.9 Anxiety disorder, unspecified; J31.0 Chronic rhinitis; M19.90 Unspecified osteoarthritis, unspecified site; F98.8 Other specified behavioral and emotional disorders with onset usually occurring in childhood and adolescence; F43.10 Post-traumatic stress disorder, unspecified; F17.210 Nicotine dependence, cigarettes, uncomplicated; Z82.49 Family history of ischemic heart disease and other diseases of the circulatory system; Z83.3 Family history of diabetes mellitus; Z87.440 Personal history of urinary (tract) infections
CPT/HCPCS: 36415; 80048; 80053; 82553; 83735; 83880; 84484; 85025; 93005; 96360; 96361; 99285; G0378; G0379; J7030

== ENCOUNTER 2017-07-11 22:18 | Emergency (ER) | payer MEDICAID, OTHER ==
[~2017-07-11] VITALS: Ht 175.3 cm; Wt 107.0 kg
[~2017-07-11 22:18] MED LIST changes: +ALPR2TAB5; +BUDE10.2; +CRAN1CAP13 PO; +FERR-26 PO; +LISI2.5T; +LORC10TA; -NAPR500T3 PO; +NAPR500T4 PO; +PANT40TA5 PO
[2017-07-11] MEDS ORDERED: IPRATRPIUM/ALBUTEROL 0.5/2.5MG 3 ML NEBU. NEB ONE (22:45)
[2017-07-11] MEDS ORDERED: ACETAMINOPHEN 650 MG/20.3 ML SOLUTION. PO ONE (22:45)
[2017-07-11] MEDS ORDERED: ONDANSETRON ODT 4 MG TAB.RAPDIS PO ONE (22:45)
[2017-07-11] MEDS ORDERED: ALBUTEROL SULFATE 8GM INHALER. ONE (22:53)
[2017-07-11] MEDS ORDERED: ONDA4TAB10 SL (23:13)
--- NOTE | 2017-07-11 23:14 | PHYS DOC ---
Past History Past Medical History: Anxiety, Diabetes Past Surgical History: Cholecystectomy Smoking: Less than 1pk/day Alcohol Use: None Drug Use: None Adult General Chief Complaint Chief Complaint: NAUSEA/VOMITING/DIARRHEA HPI HPI 37-year-old female who is approximately 9 weeks by last menstrual period who reports having had an ultrasound which shows an intrauterine . She presents today with cough and congestion along with low backaches in and a few episodes of nausea with nonbloody nonbilious vomiting of small amount of stomach contents. She describes her cough is a dry nonproductive cough. Review of systems is negative for chest pain shortness of breath abdominal pain and vaginal bleeding. She denies fevers or chills. All other review of systems is negative unless otherwise noted in history of present illness. ED course: 37-year-old female presenting to the emergency department today with a few episodes of nausea and vomiting in associated with low backaches and a dry nonproductive cough. On arrival she is afebrile with a mild tachycardia. On examination she is soft and nontender abdomen. Lungs are clear to auscultation bilaterally. After talking with the patient, she vomited up her oral Zofran pills and was desiring ODT form. In the emergency department she received an inhaler to help her with her cough. Negative or ODT Zofran along with liquid Tylenol for low back pain. On reexamination she is feeling much better and desired to be discharged. The patient was then discharged home in stable condition to follow up with their primary care physician over the next 2- 3 days. They were to return if their symptoms worsened or if they were concerned for any reason. [id number] discharge instructions and return precautions were given. Patient's questions were answered to their satisfaction. Patient is comfortable plan. Review of Systems Review of Systems SEE ABOVE. Current Medications Current Medications Current Medications Medications (Trade) Dose Ordered Sig/Brian Start Time Stop Time Status Last Admin Dose Admin Acetaminophen (Tylenol) 650 mg 1X ONCE 07/11/17 22:45 07/11/17 22:46 DC 07/11/17 23:05 650 MG Albuterol Sulfate (Ventolin Hfa) 60 puff STK-MED ONCE 07/11/17 22:53 07/11/17 22:54 DC Albuterol/ Ipratropium (Duoneb) 3 ml 1X ONCE 07/11/17 22:45 07/11/17 22:46 DC Ondansetron HCl (Zofran Odt) 4 mg 1X ONCE 07/11/17 22:45 07/11/17 22:46 DC 07/11/17 23:06 4 MG Allergies Allergies Allergies Coded Allergies Type Severity Reaction Last Updated Verified hydrocodone Allergy Unknown 05/04/16 Yes Physical Exam Physical Exam SEE ABOVE Constitutional: Well developed, well nourished, no acute distress, non-toxic appearance. HENT: Normocephalic, atraumatic, bilateral external ears normal, oropharynx moist, no oral exudates, nose normal. [] Eyes: PERRLA, EOMI, conjunctiva normal, no discharge. [] Neck: Normal range of motion, no tenderness, supple, no stridor. Cardiovascular:Heart rate regular rhythm, no murmur Lungs & Thorax: Bilateral breath sounds clear to auscultation [] Abdomen: Bowel sounds normal, soft, no tenderness, no masses, no pulsatile masses. [] Skin: Warm, dry, no erythema, no rash. Back: No tenderness, no CVA tenderness. [] Extremities: No tenderness, no cyanosis, no clubbing, ROM intact, no edema. Neurologic: Alert and oriented X 3, normal motor function, normal sensory function, no focal deficits noted. [] Psychologic: Affect normal, judgement normal, mood normal. [] Current Patient Data Vital Signs Vital Signs Date Time Temp Pulse Resp B/P (MAP) Pulse Ox O2 Delivery O2 Flow Rate FiO2 07/11/17 23:02 99 Room Air 07/11/17 22:18 98.3 100 18 EKG EKG [] Radiology/Procedures Radiology/Procedures [] Course & Med Decision Making Course & Med Decision Making Pertinent Labs and Imaging studies reviewed. (See chart for details) [] Dragon Disclaimer Dragon Disclaimer This electronic medical record was generated, in whole or in part, using a voice recognition dictation system. Departure Departure: Impression: Primary Impression: Cough Additional Impression: Nausea/vomiting in Disposition: 01 HOME, SELF-CARE Condition: STABLE Referrals: JAKUB SANTIAGO (PCP) Patient Instructions: ABCs of , Cough, Adult, Nausea and Vomiting, [id number] Additional Instructions: Thank you for allowing us to participate in your care today. Followup with your primary care physician in 3 days if your symptoms do not improve. Call your Primary Doctor tomorrow and inform them of your visit today. If you do not have a primary care provider you can ask for a list of our primary care providers. Return to the emergency department you have any new or concerning findings. This should be evaluated by the primary care physician and any necessary consulting services for continued management within a few days after discharge. Return to emergency room if you have any new or concerning symptoms including but not limited to fever, chills, nausea, vomiting, intractable pain, any new rashes, chest pain, shortness of air, uncontrolled bleeding, difficulty breathing, and/or vision loss. Scripts Ondansetron (ZOFRAN ODT) 4 Mg Tab.rapdis 1 TAB SL PRN Q8HRS Y for NAUSEA, #8 TAB Prov: JOS ACOSTA MD 07/11/17 Problem Qualifiers JOS ACOSTA MD Jul 11, 2017 23:14
[2017-07-11 23:23] VITALS: BP 116/35
== END 2017-07-11 23:19 | disposition home or self-care (01) ==
LOC: ER 22:18
DX: O21.9 Vomiting of pregnancy, unspecified (principal); O26.891 Other specified pregnancy related conditions, first trimester; O99.511 Diseases of the respiratory system complicating pregnancy, first trimester; O99.341 Other mental disorders complicating pregnancy, first trimester; O24.911 Unspecified diabetes mellitus in pregnancy, first trimester; O99.331 Smoking (tobacco) complicating pregnancy, first trimester; M54.5 Low back pain; R09.81 Nasal congestion; F41.9 Anxiety disorder, unspecified; Z88.5 Allergy status to narcotic agent; Z3A.09 9 weeks gestation of pregnancy
CPT/HCPCS: 94640; 99283; Q0162; 94664

== ENCOUNTER 2017-08-10 19:17 | Emergency (ER) | payer OTHER ==
[~2017-08-10] VITALS: Ht 175.3 cm; Wt 101.5 kg
[~2017-08-10 19:17] MED LIST changes: +NAPR-683 PO; -NAPR500T PO; +ONDA4TAB10 SL
[2017-08-10 19:30] VITALS: BP 128/89
[2017-08-10] MEDS ORDERED: FAMO-63 PO (19:46)
[2017-08-10] MEDS ORDERED: DIPH25CA58 PO (19:46)
--- NOTE | 2017-08-10 19:46 | PHYS DOC ---
Past History Past Medical History: Anxiety, CAD, Diabetes Past Surgical History: Cholecystectomy Smoking: Less than 1pk/day Alcohol Use: Occasionally Drug Use: None Adult General Chief Complaint Chief Complaint: SKIN PROBLEM HPI HPI Patient is a pleasant otherwise healthy 37-year-old female with an itchy rash has been bothering her for last week. She first noticed this on the dorsums of her hands bilaterally described as intensely itchy with some raised red areas is been intermittent as they have been resolving with use of Benadryl. She denies any fevers, chills, URI symptoms, sores in her mouth or sores in her fingers palms or feet. Patient has had hand for about disease in the past was worried that this was. She denies any closure of her throat, change in her voice sore throat or other symptoms. She denies any recent history of sexually transmitted diseases joint pain or weight gain. Review of Systems Review of Systems Constitutional: Denies fever or chills [] Eyes: Denies change in visual acuity, redness, or eye pain [] HENT: Denies nasal congestion or sore throat [] Respiratory: Denies cough or shortness of breath [] Cardiovascular: No additional information not addressed in HPI [] GI: Denies abdominal pain, nausea, vomiting, bloody stools or diarrhea [] : Denies dysuria or hematuria [] Musculoskeletal: Denies back pain or joint pain [] Integument: He describes an itchy rash on the backs of her hands bilaterally described as a burning sensation with redness Neurologic: Denies headache, focal weakness or sensory changes [] Endocrine: Denies polyuria or polydipsia [] All other systems were reviewed and found to be within normal limits, except as documented in this note. Allergies Allergies Allergies Coded Allergies Type Severity Reaction Last Updated Verified hydrocodone Allergy Unknown 05/04/16 Yes Physical Exam Physical Exam Other vital signs recorded on the chart within normal limits blood pressure 7 normal limits Constitutional: Well developed, well nourished, no acute distress, non-toxic appearance. [] HENT: Normocephalic, atraumatic, bilateral external ears normal, oropharynx moist, no oral exudates, nose normal. [] Eyes: PERRLA, EOMI, conjunctiva normal, no discharge. [] Neck: Normal range of motion, no tenderness, supple, no stridor. [] Cardiovascular:Heart rate regular rhythm, slight systolic ejection murmur 2 of 6 Lungs & Thorax: Bilateral breath sounds clear to auscultation [] Skin: Warm, dry, there is some mild erythema on the dorsums of hands no vesicles , no petechiae no purpura no pulmonary consolable. There is no joint swelling there is brisk cap refill no perceivable signs of insect bite or injury Extremities: No tenderness, no cyanosis, no clubbing, ROM intact, no edema. [] Neurologic: Alert and oriented X 3, normal motor function, normal sensory function, no focal deficits noted. [] Psychologic: Affect normal, judgement normal, mood normal. [] Current Patient Data Vital Signs Vital Signs Date Time Temp Pulse Resp B/P (MAP) Pulse Ox O2 Delivery O2 Flow Rate FiO2 08/10/17 19:30 98.4 98 18 98 Room Air EKG EKG [] Radiology/Procedures Radiology/Procedures [] Course & Med Decision Making Course & Med Decision Making Pertinent Labs and Imaging studies reviewed. (See chart for details) []Patient presents with end-stage rash and the backs of her hands bilaterally there is no other evidence of qmcp-cepp-vel-mouth disease. Doubt disseminated sexual transmitted disease or other infectious etiology like endocarditis. There are no Janeway's lesions or Osler's nodes there are no other signs of vesicles, petechiae or purpura. rash medical decision making reevaluation: The patient is now resting comfortably and feels better, is alert, is nontoxic, and is in no acute distress. The patient has a normal mental status and is neurologically intact. The rash presenting today as part of patient despite does not have any petechiae purpura, there is no palm or sole involvement, there is no joint pain or swelling, there are no mucous membrane lesions, no signs of abscess, and no bullae. The patient appears well, has no fever, no altered mental status, or signs of systemic toxicity. The history, exam, and diagnostic testing (if any) and current condition did not demonstrate signs of sepsis, [place] spotted fever, meningitis, meningococcemia, Lyme disease, toxic shock syndrome, disseminated gonorrhea, endocarditis, measles, mumps, rubella, necrotizing fasciitis, TEN, Low Clifford syndrome, pemphigus vulgaris, dress syndrome, staphylococcal scalded skin syndrome or other systemic illness or cardiac further treatment, testing or consultation in the emergency department. The patient's vital signs have been stable, the patient condition is stable and appropriate for discharge. The patient will pursue further outpatient evaluation and primary care management as indicated in the discharge instructions. Dragon Disclaimer Dragon Disclaimer This electronic medical record was generated, in whole or in part, using a voice recognition dictation system. Departure Departure: Impression: Primary Impression: Allergic reaction Referrals: JAKUB SANTIAGO (PCP) Patient Instructions: Hives, Rash Additional Instructions: discharge: I've spoken with the patient and/or caregivers. I've explained the patient's condition, diagnosis and treatment plan based on information available to me at this time. I've answered the patient's and/or caregivers questions and addressed any concerns. The patient and/or caregivers have a good understanding the patient's diagnosis, condition and treatment plan as can be expected at this point. Vital signs have been stabilized. The patient's condition is stable for discharge from the emergency department. The patient will pursue further outpatient evaluation with her primary care provider or other designated consulting physician as outlined in the discharge instructions. Patient and/or caregivers are agreeable to this plan of care and follow-up instructions have been explained in detail. The patient and/or caregivers have received these instructions in written format and expressed understanding of these discharge instructions. The patient and her caregivers are aware that if any significant change in condition or worsening of symptoms should prompt him to immediately return to this of the closest emergency department. If an emergent department is not readily available I would encourage him to call 911. Scripts Famotidine (PEPCID) 20 Mg Tablet 1 TAB PO BID, #20 TAB 0 Refills Prov: MARLINE HICKMAN MD 08/10/17 Diphenhydramine Hcl (BENADRYL) 25 Mg Capsule 50 MG PO QID for 7 Days, #56 CAP Prov: MARLINE HICKMAN MD 08/10/17 MARLINE HICKMAN MD Aug 10, 2017 19:46
== END 2017-08-10 19:54 | disposition home or self-care (01) ==
LOC: ER 19:17
DX: T78.40XA Allergy, unspecified, initial encounter (principal); E11.9 Type 2 diabetes mellitus without complications; F41.9 Anxiety disorder, unspecified; F17.200 Nicotine dependence, unspecified, uncomplicated; Z88.5 Allergy status to narcotic agent; X58.XXXA Exposure to other specified factors, initial encounter
CPT/HCPCS: 99283

== ENCOUNTER 2017-08-23 13:25 | Emergency (ER) | payer OTHER ==
[~2017-08-23] VITALS: Ht 175.3 cm; Wt 101.5 kg
[~2017-08-23 13:25] MED LIST changes: +FAMO-63 PO
[2017-08-23 13:36] VITALS: BP 128/70
--- NOTE | 2017-08-23 14:11 | PHYS DOC ---
Past History Past Medical History: No Pertinent History Past Surgical History: No Surgical History Smoking: Less than 1pk/day Alcohol Use: Rarely Drug Use: None Adult General Chief Complaint Chief Complaint: HAND PROBLEM HPI HPI Patient is a 37 year old female who presents with wrist pain that started this morning. She denies injury. She feels that her pain is most the on the lateral wrist and radiating into her first and second finger. Her pain is worse with movement and palpation. Pain is improved positioning and rest. She has no other associated symptoms and no other exacerbating or alleviating factors. Review of Systems Review of Systems Constitutional: Denies fever or chills [] Eyes: Denies change in visual acuity, redness, or eye pain [] HENT: Denies nasal congestion or sore throat [] Respiratory: Denies cough or shortness of breath [] Cardiovascular: No additional information not addressed in HPI [] GI: Denies abdominal pain, nausea, vomiting, bloody stools or diarrhea [] : Denies dysuria or hematuria [] Musculoskeletal: Denies back pain Integument: Denies rash or skin lesions [] Neurologic: Denies headache, focal weakness or sensory changes [] Endocrine: Denies polyuria or polydipsia [] All other systems were reviewed and found to be within normal limits, except as documented in this note. Family History Family History No pertinent family medical history was reported Current Medications Current Medications Medications reviewed Allergies Allergies Allergies Coded Allergies Type Severity Reaction Last Updated Verified hydrocodone Allergy Unknown 05/04/16 Yes Physical Exam Physical Exam Constitutional: Well developed, well nourished, no acute distress, non-toxic appearance. [] HENT: Normocephalic, atraumatic, Eyes: PERRLA, EOMI, conjunctiva normal, no discharge. [] Neck: Normal range of motion, no tenderness, supple, no stridor. [] Cardiovascular:Heart rate regular rhythm, Lungs & Thorax: Bilateral breath sounds clear to auscultation [] Abdomen: Bowel sounds normal, soft, no tenderness, no masses, no pulsatile masses. [] Gravid Skin: Warm, dry, no erythema, no rash. [] Back: No tenderness, no CVA tenderness. [] Extremities: Right wrist: Mild lateral swelling over the wrist with tenderness to palpation in that area. Normal range of motion however pain was noted. Strength limited due to pain. Neurovascularly intact Neurologic: Alert and oriented X 3, normal motor function, normal sensory function, no focal deficits noted. [] Psychologic: Affect normal, judgement normal, mood normal. [] Current Patient Data Vital Signs Vital Signs Date Time Temp Pulse Resp B/P (MAP) Pulse Ox O2 Delivery O2 Flow Rate FiO2 08/23/17 13:36 97.9 91 18 97 Room Air EKG EKG [] Radiology/Procedures Radiology/Procedures Imaging was declined Course & Med Decision Making Course & Med Decision Making Pertinent Labs and Imaging studies reviewed. (See chart for details) [] Dragon Disclaimer Dragon Disclaimer This electronic medical record was generated, in whole or in part, using a voice recognition dictation system. Departure Departure: Impression: Primary Impression: Right wrist sprain Disposition: HOME, SELF-CARE Condition: STABLE Referrals: JAKUB SANTIAGO (PCP) Patient Instructions: Wrist Sprain with [facility] Additional Instructions: Jennifer was seen in the emergency department for wrist pain. No emergency medical condition was found on history or physical exam. Her symptoms most consistent with a wrist sprain. She is placed in a splint. She was advised to use lidocaine patches and Tylenol for pain. She is advised follow-up with her primary care doctor as needed for further management. Problem Qualifiers Primary Impression: Right wrist sprain Encounter type: initial encounter Qualified Codes: S63.501A - Unspecified sprain of right wrist, initial encounter LUL LIMON MD Aug 23, 2017 14:11
== END 2017-08-23 14:30 | disposition home or self-care (01) ==
LOC: ER 13:25
DX: S63.501A Unspecified sprain of right wrist, initial encounter (principal); F17.200 Nicotine dependence, unspecified, uncomplicated; Z88.5 Allergy status to narcotic agent; X58.XXXA Exposure to other specified factors, initial encounter; Y93.89 Activity, other specified; Y99.8 Other external cause status; Y92.89 Other specified places as the place of occurrence of the external cause
CPT/HCPCS: 29125; 99281; 99283-25

== ENCOUNTER 2017-08-31 12:43 | Emergency (ER) | payer OTHER ==
[~2017-08-31] VITALS: Ht 175.3 cm; Wt 101.5 kg
--- NOTE | 2017-08-31 13:12 | RAD ---
3 views left wrist 08/31/2017 Clinical indication: Fall and left wrist pain. Comparison: Left hand radiograph 03/04/2008. Findings: No acute fracture or traumatic malalignment. The joint spaces are maintained. The visualized soft tissues are unremarkable. The distal radius and ulna are intact. Impression: No acute osseous abnormality.
--- NOTE | 2017-08-31 13:24 | PHYS DOC ---
Past History Past Medical History: Diabetes, [place] Past Surgical History: No Surgical History Smoking: Less than 1pk/day Alcohol Use: Rarely Drug Use: None Adult General Chief Complaint Chief Complaint: WRIST PAIN HPI HPI 37-year-old female patient 20 weeks of gestation brought in by EMS because of a fall and left wrist pain. Patient states she lost her balance was walking outside and almost had a fall and landed on her left wrist for prevention of the fall. She and rated his pain 8/10 and denies focal neuro deficit. Patient denies other injuries or loss of consciousness or injury to her abdomen but complaining of abdominal pain on her way to come to ER by EMS. Patient denies vaginal bleeding and constant traction. Review of Systems Review of Systems Constitutional: Denies fever or chills [] Eyes: Denies change in visual acuity, redness, or eye pain [] HENT: Denies nasal congestion or sore throat [] Respiratory: Denies cough or shortness of breath [] Cardiovascular: No additional information not addressed in HPI [] GI: Denies nausea, vomiting, bloody stools or diarrhea, reports abdominal pain [] : Denies dysuria or hematuria [] Musculoskeletal: Denies back pain , reports joint pain [] Integument: Denies rash or skin lesions [] Neurologic: Denies headache, focal weakness or sensory changes [] Endocrine: Denies polyuria or polydipsia [] All other systems were reviewed and found to be within normal limits, except as documented in this note. Allergies Allergies Allergies Coded Allergies Type Severity Reaction Last Updated Verified hydrocodone Allergy Unknown 05/04/16 Yes Physical Exam Physical Exam Constitutional: Well developed, well nourished, mild distress, non-toxic appearance, anxious. [] HENT: Normocephalic, atraumatic, bilateral external ears normal, oropharynx moist, no oral exudates, nose normal. [] Eyes: PERRLA, EOMI, conjunctiva normal, no discharge. [] Neck: Normal range of motion, no tenderness, supple, no stridor. [] Cardiovascular:Heart rate regular rhythm, no murmur [] Lungs & Thorax: Bilateral breath sounds clear to auscultation [] Abdomen: Bowel sounds normal, soft, no tenderness, no masses, no pulsatile masses, gravid abdomen, heart rate 154, bedside ultrasound showed movement. [] Skin: Warm, dry, no erythema, no rash. [] Back: No tenderness, no CVA tenderness. [] Extremities: No tenderness, no cyanosis, no clubbing, ROM intact, no edema, left wrist without deformity or tenderness or limited range of motion. [] Neurologic: Alert and oriented X 3, normal motor function, normal sensory function, no focal deficits noted. [] Current Patient Data Vital Signs Vital Signs Date Time Temp Pulse Resp B/P (MAP) Pulse Ox O2 Delivery O2 Flow Rate FiO2 08/31/17 12:43 97.7 96 18 97 Room Air EKG EKG [] Radiology/Procedures Radiology/Procedures [] Course & Med Decision Making Course & Med Decision Making Pertinent Imaging studies reviewed. (See chart for details) Evaluation of patient in ER showed 37-year-old female patient at 20 weeks of gestation with frequent emergency room visits brought in by EMS because of an injury to left wrist. Patient had unremarkable physical exam and complaining of abdominal pain while she was in ER with normal heart rate and bedside ultrasound. Francisco wrap applied and patient instructed to take [id number] Tylenol and follow with her physician as needed. [] Dragon Disclaimer Dragon Disclaimer This electronic medical record was generated, in whole or in part, using a voice recognition dictation system. Departure Departure: Impression: Primary Impression: Sprain of left wrist Additional Impressions: Currently Tobacco abuse Tobacco abuse counseling Abdominal pain during Fall at home Disposition: 01 HOME, SELF-CARE (At 1321) Condition: IMPROVED Referrals: JAKUB SANTIAGO (PCP) Patient Instructions: Abdominal Pain During , Wrist Sprain with [facility] Additional Instructions: Take [id number] Tylenol for his pain as needed Follow-up with your [facility] doctor in 2 or 3 days Return to ER if not getting better Problem Qualifiers SCOUT WRIGHT MD Aug 31, 2017 13:24
[2017-08-31 13:45] VITALS: BP 130/71
== END 2017-08-31 13:45 | disposition home or self-care (01) ==
LOC: ER 12:43
DX: O9A.212 Injury, poisoning and certain other consequences of external causes complicating pregnancy, second trimester (principal); S63.502A Unspecified sprain of left wrist, initial encounter; O26.892 Other specified pregnancy related conditions, second trimester; O24.912 Unspecified diabetes mellitus in pregnancy, second trimester; R10.9 Unspecified abdominal pain; O99.332 Smoking (tobacco) complicating pregnancy, second trimester; I25.2 Old myocardial infarction; Z88.5 Allergy status to narcotic agent; Z3A.20 20 weeks gestation of pregnancy; Z71.6 Tobacco abuse counseling; W19.XXXA Unspecified fall, initial encounter; Y93.01 Activity, walking, marching and hiking; Y99.8 Other external cause status; Y92.008 Other place in unspecified non-institutional (private) residence as the place of occurrence of the external cause
CPT/HCPCS: 73110; 99284

== ENCOUNTER 2018-01-19 18:09 | Emergency (ER) | payer OTHER ==
[~2018-01-19] VITALS: Ht 175.3 cm; Wt 100.7 kg
[~2018-01-19 18:09] MED LIST changes: -FERR-26 PO; +FERR325T14 PO; +NAPR-514 PO; -NAPR500T4 PO
--- NOTE | 2018-01-19 18:36 | PHYS DOC ---
Past History Past Medical History: Diabetes, [place] Past Surgical History: Smoking: Less than 1pk/day Alcohol Use: Rarely Drug Use: None Adult General Chief Complaint Chief Complaint: FEVER HPI HPI Patient is a 37 year old female who presents with complaint of generalized fatigue, weakness, and subjective fevers. Patient states she started noticing symptoms last night and states that she has continued not to feel well throughout the day today. The patient underwent a delivery [address] Bhat at [facility]. Patient reports that this was uneventful and was discharged without complication. Patient states that her incision has been healing well and she has not had any increasing pain, redness , or abnormal drainage. Patient states that she thought that her symptoms may have been heat related as she was outside for an extended period of time yesterday but states that despite oral fluids and rest she is still feeling generalized fatigue. The patient states that she last took Tylenol at 1400 today. Patient has history of hypertension and states that she has not been on blood pressure medication during her . Patient states that she's been having low back spasms which are nonacute but denies any other new pain symptoms. Patient also notes that she has had swelling in her lower extremities which she attributes to receiving a significant amount of IV fluids during her hospital last week. Review of Systems Review of Systems Constitutional: Subjective fever, fatigue[] Eyes: Denies change in visual acuity, redness, or eye pain [] HENT: Denies nasal congestion or sore throat [] Respiratory: Denies cough or shortness of breath [] Cardiovascular: Denies chest pain or edema[] GI: Denies abdominal pain, nausea, vomiting, bloody stools or diarrhea [] : Denies dysuria or hematuria [] Musculoskeletal: Back spasms, denies joint pain[] Integument: Denies rash or skin lesions [] Neurologic: Denies headache, focal weakness or sensory changes [] All other systems were reviewed and found to be within normal limits, except as documented in this note. Allergies Allergies Allergies Coded Allergies Type Severity Reaction Last Updated Verified hydrocodone Allergy Unknown 05/04/16 Yes Physical Exam Physical Exam Constitutional: Alert, hypertensive, afebrile, no acute distress. [] HENT: Normocephalic, atraumatic, bilateral external ears normal, oropharynx moist, no oral exudates, nose normal. [] Eyes: PERRLA, EOMI, conjunctiva normal, no discharge. [] Neck: Normal range of motion, no tenderness, supple, no stridor. [] Cardiovascular:Heart rate regular rhythm, no murmur [] Lungs & Thorax: Bilateral breath sounds clear to auscultation [] Abdomen: Bowel sounds normal, soft, no tenderness, no masses, no pulsatile masses. [] Skin: Warm, dry, no erythema, no rash. [] Back: No midline tenderness, bilateral lower lumbar paraspinous muscle tenderness to palpation, no flank ecchymosis. [] Extremities: No tenderness, no cyanosis, no clubbing, ROM intact, 1+ pedal edema bilaterally. [] Neurologic: Alert and oriented X 3, normal motor function, normal sensory function, no focal deficits noted. [] Current Patient Data Vital Signs Vital Signs Date Time Temp Pulse Resp B/P (MAP) Pulse Ox O2 Delivery O2 Flow Rate FiO2 01/19/18 18:21 98.3 82 18 96 Room Air Lab Results Laboratory Tests Test 01/19/18 18:34 01/19/18 18:44 White Blood Count 9.3 x10^3/uL Red Blood Count 3.66 x10^6/uL Hemoglobin 11.3 g/dL Hematocrit 32.4 % Mean Corpuscular Volume 89 fL Mean Corpuscular Hemoglobin 31 pg Mean Corpuscular Hemoglobin Concent 35 g/dL Red Cell Distribution Width 13.6 % Platelet Count 254 x10^3/uL Neutrophils (%) (Auto) 67 % Lymphocytes (%) (Auto) 26 % Monocytes (%) (Auto) 6 % Eosinophils (%) (Auto) 1 % Basophils (%) (Auto) 0 % Neutrophils # (Auto) 6.2 x10^3uL Lymphocytes # (Auto) 2.4 x10^3/uL Monocytes # (Auto) 0.6 x10^3/uL Eosinophils # (Auto) 0.1 x10^3/uL Basophils # (Auto) 0.0 x10^3/uL Sodium Level 139 mmol/L Potassium Level 3.2 mmol/L Chloride Level 104 mmol/L Carbon Dioxide Level 24 mmol/L Anion Gap 11 Blood Urea Nitrogen 8 mg/dL Creatinine 0.7 mg/dL Estimated GFR (Cockcroft-Gault) 93.6 Glucose Level 93 mg/dL Calcium Level 7.6 mg/dL Magnesium Level 1.8 mg/dL Urine Collection Type Unknown Urine Color Yellow Urine Clarity Hazy Urine pH 6.5 Urine Specific [place] 1.020 Urine Protein 30 mg/dl Urine Glucose (UA) Neg mg/dL Urine Ketones (Stick) Neg mg/dL Urine Blood Large Urine Nitrite Neg Urine Bilirubin Neg Urine Urobilinogen Dipstick 0.2 mg/dL Urine Leukocyte Esterase Neg Urine RBC 20-40 /HPF Urine WBC 1-4 /HPF Urine Squamous Epithelial Cells Many /LPF Urine Bacteria 0 /HPF Urine Mucus Slight /LPF Current Medications Medications (Trade) Dose Ordered Sig/Brian Route PRN Reason Start Time Stop Time Status Last Admin Dose Admin Cyclobenzaprine HCl (Flexeril) 10 mg 1X ONCE PO 01/19/18 18:45 01/19/18 18:46 DC 01/19/18 18:46 Potassium Chloride (Klor-Con) 40 meq 1X ONCE PO 01/19/18 19:15 01/19/18 19:16 DC 01/19/18 19:13 EKG EKG Not performed[] Radiology/Procedures Radiology/Procedures Not performed[] Course & Med Decision Making Course & Med Decision Making Pertinent Labs and Imaging studies reviewed. (See chart for details) Patient does not have any localizing findings on exam. The patient was found to have mildly decreased potassium level which was supplemented in the emergency department. Patient was also treated with Flexeril for back spasm. Patient's blood pressure has come down to 149/82. After speaking with the patient I will defer reinitiation of her blood pressure medication by her primary doctor. Recommended rest and oral hydration at home. Advised her to follow-up in the next 2-3 days for reevaluation and recommended return to emergency department for any worsening symptoms. Patient was understanding and in agreement with treatment plan. Dragon Disclaimer Dragon Disclaimer This electronic medical record was generated, in whole or in part, using a voice recognition dictation system. Departure Departure: Impression: Primary Impression: Fatigue Additional Impressions: Dehydration Hypokalemia Hypertension Disposition: HOME, SELF-CARE Condition: STABLE Referrals: JAKUB SANTIAGO (PCP) Patient Instructions: Fatigue, Hypertension, Hypokalemia Additional Instructions: Follow-up with your primary doctor in 2-3 days. Return to the emergency department for any worsening symptoms. Problem Qualifiers Primary Impression: Fatigue Fatigue type: unspecified Qualified Codes: R53.83 - Other fatigue Additional Impressions: Hypertension Hypertension type: essential hypertension Qualified Codes: I10 - Essential ( primary) hypertension ANGELA BROWN MD Jan 19, 2018 18:36
[2018-01-19] MEDS ORDERED: CYCLOBENZAPRINE 10 MG TABLET. PO ONE (18:45)
[2018-01-19 18:53] LABS: BASO % 0 % (0-3); EOS # 0.1 x10^3/uL (0.0-0.7); EOS % 1 % (0-3); HEMATOCRIT 32.4 % (36.0-47.0); HEMOGLOBIN 11.3 g/dL (12.0-15.5); LYMPH # 2.4 x10^3/uL (1.0-4.8); LYMPH % 26 % (24-48); MEAN CORPUSCULAR HEMOGLOBIN 31 pg (25-35); MEAN CORPUSCULAR HGB CONC 35 g/dL (31-37); MEAN CORPUSCULAR VOLUME 89 fL (79-100); MONO # 0.6 x10^3/uL (0.0-1.1); MONO % 6 % (0-9); NEUT # 6.2 x10^3uL (1.8-7.7); NEUT % 67 % (31-73); PLATELET COUNT 254 x10^3/uL (140-400); RED BLOOD COUNT 3.66 x10^6/uL (3.50-5.40); RED CELL DISTRIBUTION WIDTH 13.6 % (11.5-14.5); WHITE BLOOD COUNT 9.3 x10^3/uL (4.0-11.0)
[2018-01-19 18:57] LABS: CALCIUM 7.6 mg/dL (8.5-10.1); CREATININE 0.7 mg/dL (0.6-1.0); GFR 93.6; MAGNESIUM 1.8 mg/dL (1.8-2.4); POTASSIUM 3.2 mmol/L (3.5-5.1)
[2018-01-19] MEDS ORDERED: POTASSIUM CHLORIDE 20 MEQ TABLET.ER. PO ONE (19:15)
[2018-01-19 19:50] LABS: BACTERIA,URINE 0 /HPF (0-FEW); BILIRUBIN,URINE NEG (NEG); CLARITY,URINE HAZY; COLOR,URINE YELLOW; GLUCOSE,URINE NEG (NEG); NITRITE,URINE NEG (NEG); RBC,URINE 20-40 /HPF (0-2); SQUAMOUS EPITHELIAL CELL,UR MANY /LPF; UROBILINOGEN,URINE 0.2 mg/dL (0.2 mg/dL)
[2018-01-19 20:05] VITALS: BP 149/82
== END 2018-01-19 20:17 | disposition home or self-care (01) ==
LOC: ER 18:09
DX: O90.89 Other complications of the puerperium, not elsewhere classified (principal); E87.6 Hypokalemia; E86.0 Dehydration; I10 Essential (primary) hypertension; E11.9 Type 2 diabetes mellitus without complications; I25.2 Old myocardial infarction; F17.200 Nicotine dependence, unspecified, uncomplicated; Z88.5 Allergy status to narcotic agent
CPT/HCPCS: 36415; 80048; 81001; 83735; 85025; 99284

== ENCOUNTER 2018-01-23 23:10 | Emergency (ER) | payer OTHER ==
[~2018-01-23] VITALS: Ht 175.3 cm; Wt 101.5 kg
--- NOTE | 2018-01-23 23:14 | ED.ADGEN ---
Past History Past Medical History: Diabetes, [place] Past Surgical History: Cholecystectomy, Smoking: Less than 1pk/day Alcohol Use: Rarely Drug Use: None Adult General Chief Complaint Chief Complaint ".. I just started having really bad back and abd. pain here on the right..up here on my flank. ... and I am vomiting.. I was here the other day for back pain... I tried to a some flexeril... but I just vomited it up..." HPI HPI Patient is a 37 year old female who presents with nausea, Rt flank abd. pain and vomiting. Pt. denies any bad food, specific ill contacts, trauma or travel. Pt. Localizes pain in Rt. flank and abd. Pt. reports pain radiated to Rt groin. Patient denies any history of trauma. Pt. had previous C - section 9 days ago. Pt. follows with Dr. Jj. Pt. has follow up this week. Pt. in Rt. flank exacerbated with percussion. No history of travel. No history of travel. No history of specific ill contacts. No history immunosuppression. Pt. has know hx of Rt. ovarian Teratoma- planned surgical removal per pt. Review of Systems Review of Systems Constitutional: Denies fever or chills [] Eyes: Denies change in visual acuity, redness, or eye pain [] HENT: Denies nasal congestion or sore throat [] Respiratory: Denies cough or shortness of breath [] Cardiovascular: No additional information not addressed in HPI [] GI: Complains of nausea, vomiting,. Denies bloody stools or diarrhea [] : Denies dysuria or hematuria [] Musculoskeletal: Complaints of right flank back pain Integument: Denies rash or skin lesions [] Neurologic: Denies headache, focal weakness or sensory changes [] Endocrine: Denies polyuria or polydipsia [] All other systems were reviewed and found to be within normal limits, except as documented in this note. Family History Family History Noncontributory Current Medications Current Medications Current Medications Medications (Trade) Dose Ordered Sig/Brian Start Time Stop Time Status Last Admin Dose Admin Ketorolac Tromethamine (Toradol) 30 mg 1X ONCE 01/24/18 01:30 01/24/18 01:34 DC 01/24/18 02:41 30 MG Lactated Ringer's 1,000 ml @ 1,000 mls/hr Q1H 01/23/18 23:45 01/24/18 00:44 DC 01/23/18 23:56 1,000 MLS/HR Morphine Sulfate (Morphine 10mg Syringe) 10 mg 1X ONCE 01/24/18 00:15 01/24/18 00:58 DC 01/24/18 00:12 10 MG Ondansetron HCl (Starter Pack - Zofran Odt) 1 startpack 1X ONCE 01/24/18 05:30 01/24/18 05:31 DC 01/24/18 03:40 1 STARTPACK Ondansetron HCl (Zofran Odt) 8 mg 1X ONCE 01/23/18 23:45 01/23/18 23:47 DC 01/23/18 23:56 8 MG Potassium Chloride (KCl Oral Soln) 40 meq 1X ONCE 01/24/18 01:00 01/24/18 01:01 DC 01/24/18 02:40 40 MEQ Allergies Allergies Allergies Coded Allergies Type Severity Reaction Last Updated Verified hydrocodone Allergy Unknown 05/04/16 Yes Physical Exam Physical Exam Constitutional: in acute distress, non-toxic appearance. [] HENT: Normocephalic, atraumatic, bilateral external ears normal, oropharynx moist, no oral exudates, nose normal. []Very poor dentition. Eyes: PERRLA, EOMI, conjunctiva normal, no discharge. [] Neck: Normal range of motion, no tenderness, supple, no stridor. [] Cardiovascular:Heart rate regular rhythm, no murmur [] Lungs & Thorax: Bilateral breath sounds bilateral scattered wheezes on auscultation [] Abdomen: Bowel sounds decreased soft, Rt. flank and abd. tenderness, no masses , no pulsatile masses. [] Stable scar. Pt. declines vaginal exam at this time. ( No active bleeding or discharge.) Skin: Warm, dry, no erythema, no rash. [] Back: No tenderness, no CVA tenderness. [] Extremities: No tenderness, no cyanosis, no clubbing, ROM intact, no edema. No psoas. ] Neurologic: Alert and oriented X 3, normal motor function, normal sensory function, no focal deficits noted. [] Psychologic: Affect anxious, judgement normal, mood normal. [] Current Patient Data Vital Signs Vital Signs Date Time Temp Pulse Resp B/P (MAP) Pulse Ox O2 Delivery O2 Flow Rate FiO2 01/24/18 03:19 72 16 161/89 (113) 94 Room Air 01/23/18 23:20 98.4 Lab Results Laboratory Tests Test 01/23/18 23:40 01/23/18 23:44 D-Dimer (Ce) 2.24 mg/L (0.00-0.50) H Urine Collection Type Unknown Urine Color Yellow Urine Clarity Cloudy Urine pH 5.0 Urine Specific [place] >=1.030 Urine Protein >100 mg/dl (NEG-TRACE) Urine Glucose (UA) Neg mg/dL (NEG) Urine Ketones (Stick) Neg mg/dL (NEG) Urine Blood Large (NEG) Urine Nitrite Neg (NEG) Urine Bilirubin Neg (NEG) Urine Urobilinogen Dipstick 0.2 mg/dL (0.2 mg/dL) Urine Leukocyte Esterase Neg (NEG) Urine RBC Occ /HPF (0-2) Urine WBC 0 /HPF (0-4) Urine Squamous Epithelial Cells Few /LPF Urine Amorphous Sediment Present /HPF Urine Bacteria 0 /HPF (0-FEW) Urine Opiates Screen Neg (NEG) Urine Methadone Screen Neg (NEG) Urine Barbiturates Neg (NEG) Urine Phencyclidine Screen Neg (NEG) Urine Amphetamine/Methamphetamine Neg (NEG) Urine Benzodiazepines Screen Neg (NEG) Urine Cocaine Screen Neg (NEG) Urine Cannabinoids Screen Neg (NEG) Urine Ethyl Alcohol Neg (NEG) White Blood Count 12.5 x10^3/uL (4.0-11.0) H Red Blood Count 4.41 x10^6/uL (3.50-5.40) Hemoglobin 13.2 g/dL (12.0-15.5) Hematocrit 38.7 % (36.0-47.0) Mean Corpuscular Volume 88 fL (79-100) Mean Corpuscular Hemoglobin 30 pg (25-35) Mean Corpuscular Hemoglobin Concent 34 g/dL (31-37) Red Cell Distribution Width 13.2 % (11.5-14.5) Platelet Count 357 x10^3/uL (140-400) Neutrophils (%) (Auto) 83 % (31-73) H Lymphocytes (%) (Auto) 11 % (24-48) L Monocytes (%) (Auto) 6 % (0-9) Eosinophils (%) (Auto) 0 % (0-3) Basophils (%) (Auto) 0 % (0-3) Neutrophils # (Auto) 10.4 x10^3uL (1.8-7.7) H Lymphocytes # (Auto) 1.3 x10^3/uL (1.0-4.8) Monocytes # (Auto) 0.8 x10^3/uL (0.0-1.1) Eosinophils # (Auto) 0.0 x10^3/uL (0.0-0.7) Basophils # (Auto) 0.0 x10^3/uL (0.0-0.2) Prothrombin Time 10.7 SEC (9.4-11.4) Prothrombin Time INR 1.0 (0.9-1.1) PTT 42 SEC (23-33) H Maternal Serum HCG Beta Subunit 20 mIU/mL (0-6) H Sodium Level 140 mmol/L (136-145) Potassium Level 2.8 mmol/L (3.5-5.1) *L Chloride Level 101 mmol/L (98-107) Carbon Dioxide Level 24 mmol/L (21-32) Anion Gap 15 (6-14) H Blood Urea Nitrogen 20 mg/dL (7-20) Creatinine 0.9 mg/dL (0.6-1.0) Estimated GFR (Cockcroft-Gault) 70.1 Glucose Level 156 mg/dL (70-99) H Calcium Level 8.4 mg/dL (8.5-10.1) L Total Bilirubin 0.3 mg/dL (0.2-1.0) Direct Bilirubin 0.1 mg/dL (0.0-0.2) Aspartate Amino Transferase (AST) 15 U/L (15-37) Alanine Aminotransferase (ALT) 14 U/L (14-59) Alkaline Phosphatase 113 U/L (46-116) Creatine Kinase 55 U/L (26-192) Creatine Kinase MB (Mass) 0.5 ng/mL (0.0-3.6) Creatine Kinase MB Relative Index 0.9 % (0-4) Troponin I Quantitative < 0.017 ng/mL (0-0.055) Total Protein 8.0 g/dL (6.4-8.2) Albumin 3.2 g/dL (3.4-5.0) L Lipase 68 U/L (73-393) L EKG EKG [] Radiology/Procedures Radiology/Procedures Acute abdomen shows no acute cardiopulmonary findings. No free air in the diaphragm. Nonspecific bowel gas pattern. Has clips from prior surgery CT of abdomen shows what appears to be a hemorrhagic infarct of right adrenal gland.[] Course & Med Decision Making Course & Med Decision Making Pertinent Labs and Imaging studies reviewed. (See chart for details). Pt. demanding discharge. Refusing further workup. Pt. reports al most complete relief of pain with Toradol. Pt. refuses transfer to [facility] or other hospital for further eval. Pt. demands discharge. Pt. exhibit [facility] capacity. Recent given a prescription for Zofran for episodic nausea and vomiting. Begged patient to reconsider decision to not be admitted and further evaluation.. Patient instructed she could return at any time. [] Final Impression Final Impression 1. Rt. Flank Abd. Pain 2. Nausea and vomiting[] 3. Hypokalemia 4. Hematuria 5. Right 1.9 Ovarian Teratoma 6. Rt. adrenal hemorrhage 7. Possible retained Products of conception 8. Elevated D-dimer 9. Elevated Glucose Dragon Disclaimer Dragon Disclaimer This electronic medical record was generated, in whole or in part, using a voice recognition dictation system. BALDO OSULLIVAN MD Jan 23, 2018 23:14
[2018-01-23] MEDS: IV RINGERS SOLUTION,LACTATED 1,000 ML IV SCH (23:56)
[2018-01-23] MEDS: ONDANSETRON ODT 4 MG TAB.RAPDIS PO ONE (23:56)
[2018-01-24 00:06] LABS: BASO % 0 % (0-3); EOS % 0 % (0-3); HEMATOCRIT 38.7 % (36.0-47.0); HEMOGLOBIN 13.2 g/dL (12.0-15.5); LYMPH # 1.3 x10^3/uL (1.0-4.8); LYMPH % 11 % (24-48); MEAN CORPUSCULAR HEMOGLOBIN 30 pg (25-35); MEAN CORPUSCULAR HGB CONC 34 g/dL (31-37); MEAN CORPUSCULAR VOLUME 88 fL (79-100); MONO # 0.8 x10^3/uL (0.0-1.1); MONO % 6 % (0-9); NEUT # 10.4 x10^3uL (1.8-7.7); NEUT % 83 % (31-73); PLATELET COUNT 357 x10^3/uL (140-400); RED BLOOD COUNT 4.41 x10^6/uL (3.50-5.40); RED CELL DISTRIBUTION WIDTH 13.2 % (11.5-14.5); WHITE BLOOD COUNT 12.5 x10^3/uL (4.0-11.0)
[2018-01-24] MEDS: MORPHINE SULFATE 10 MG/ML SYRINGE. SQ ONE (00:12)
[2018-01-24 00:14] LABS: BACTERIA,URINE 0 /HPF (0-FEW); BILIRUBIN,URINE NEG (NEG); CLARITY,URINE CLOUDY; COLOR,URINE YELLOW; GLUCOSE,URINE NEG (NEG); NITRITE,URINE NEG (NEG); RBC,URINE OCC /HPF (0-2); SQUAMOUS EPITHELIAL CELL,UR FEW /LPF; UROBILINOGEN,URINE 0.2 mg/dL (0.2 mg/dL); WBC,URINE 0 /HPF (0-4)
[2018-01-24 00:15] LABS: AMORPHOUS SEDIMENT,UR PRESENT /HPF
[2018-01-24 00:22] LABS: BARBITURATES NEG (NEG); BENZODIAZEPINES NEG (NEG); CANNABINOIDS NEG (NEG); COCAINE NEG (NEG); METHADONE NEG (NEG); OPIATES NEG (NEG); PHENCYCLIDINE NEG (NEG)
[2018-01-24 00:23] LABS: AMPHETAMINE/METHAMPHETAMINE NEG (NEG)
[2018-01-24 00:35] LABS: ALBUMIN 3.2 g/dL (3.4-5.0); CALCIUM 8.4 mg/dL (8.5-10.1); CREATININE 0.9 mg/dL (0.6-1.0); DIRECT BILIRUBIN 0.1 mg/dL (0.0-0.2); GFR 70.1; TOTAL BILIRUBIN 0.3 mg/dL (0.2-1.0)
[2018-01-24 00:45] LABS: POTASSIUM 2.8 mmol/L (3.5-5.1)
--- NOTE | 2018-01-24 02:37 | RAD ---
EXAM: 1. Abdomen one view. 2. Pelvis one view. HISTORY: Abdominal and pelvic pain. Nausea/vomiting. COMPARISON: None. FINDINGS: There are no distended small bowel loops. There is gas distally. Cholecystectomy clips are noted. There are no renal or ureteral calculi. No fractures are identified. The joint spaces and alignment of both hips are maintained. IMPRESSION: 1. No evidence of obstruction. Electronically signed by: Ale Raya MD (01/24/2018 2:33 AM) [id number]
--- NOTE | 2018-01-24 02:37 | RAD ---
EXAM: CT ABDOMEN/PELVIS WITHOUT CONTRAST. HISTORY: Right flank pain and vomiting. TECHNIQUE: Computed tomography of the abdomen and pelvis was performed without intravenous contrast. COMPARISON: None. FINDINGS: Lung windows through the visualized portions of the bases reveal a vaguely nodular 12 x 11 mm opacity in the left lower lobe on image 17. There is mild atelectasis elsewhere. The nodule may be atelectasis or or mild focal infiltrate but is indeterminate. Bone windows reveal no suspicious lesions. The uterus is moderately enlarged. The endometrial stripe is thickened and has multifocal hyperattenuating lesions scattered throughout the upper and lower uterine segments. Endometrial thickness appears to measure up to 17 mm. No focal uterine masses are seen. A small fat density mass in the right ovary measures 1.9 x 1.2 cm and is consistent with a small dermoid. The colon is decompressed but appears there is a mild diffuse wall thickening. The appendix is not inflamed. There is no obstruction. There is a small amount of fluid along the deep surface of the left rectus muscle measuring 2.4 x 1.2 cm transaxially. There is mild diffuse retroperitoneal edema. The right adrenal gland is enlarged measuring 4.8 x 2.5 cm. Is mildly heterogeneous hyperattenuating suggesting hemorrhage, but a mass cannot be excluded. The gallbladder is surgically absent. The liver, spleen and kidneys are unremarkable. There is a retroaortic left renal vein. There are no pathologically enlarged lymph nodes. There are no renal or ureteral calculi. IMPRESSION: 1. Enlargement and hyperdensity of the right adrenal glands suggests adrenal hemorrhage versus a mass. Follow-up could be performed if the diagnosis remains unclear. 2. Hyperdense material within the endometrial cavity is likely clot in a state. Correlate for abnormal vaginal bleeding to exclude retained products of conception. 3. Retroperitoneal edema. Correlate for mild volume overload or cardiomyopathy. 4. 1.9 cm right ovarian teratoma. 5. 12 mm nodular density in the left lower lobe, most likely a small infiltrate or atelectasis. This could be followed in 3 months to confirm resolution if there is persistent concern. 6. Mild colonic wall thickening. Correlate clinically to differentiate a normal appearance in the setting of luminal decompression from colitis. These findings were called to Dr. Arthur by Gomez Raya on 01/24/2018 at 2:32 AM. *One or more of the following individualized dose reduction techniques were utilized for this examination: 1. Automated exposure control. 2. Adjustment of the mA and/or kV according to patient size. 3. Use of iterative reconstruction technique. Electronically signed by: Ale Raya MD (01/24/2018 2:34 AM) [id number]
[2018-01-24] MEDS: POTASSIUM CHLORIDE 20 MEQ/15 ML ORAL LIQUID. PO ONE (02:40)
[2018-01-24] MEDS: KETOROLAC 30 MG/ML VIAL. IV ONE (02:41)
[2018-01-24 03:19] VITALS: BP 161/89
[2018-01-24] MEDS ORDERED: ONDA8TAB12 PO (03:24)
[2018-01-24] MEDS ORDERED: ONDANSETRON 4MG ODT 4TABLET STARTPACK. PO ONE (03:40)
[2018-01-24] MEDS: ONDANSETRON 4MG ODT 4TABLET STARTPACK. PO ONE (03:40)
== END 2018-01-24 03:40 | disposition left against medical advice (07) ==
LOC: ER 23:10
DX: E87.6 Hypokalemia (principal); R31.9 Hematuria, unspecified; D27.0 Benign neoplasm of right ovary; E27.49 Other adrenocortical insufficiency; R79.1 Abnormal coagulation profile; E11.9 Type 2 diabetes mellitus without complications; I25.2 Old myocardial infarction; F17.200 Nicotine dependence, unspecified, uncomplicated; Z90.49 Acquired absence of other specified parts of digestive tract
CPT/HCPCS: 36415; 72170; 74018; 74176; 80048; 80076; 80307; 81001; 82533; 82553; 83690; 84443; 84484; 84702; 85025; 85379; 85610; 85730; 96361; 96372; 96374; 99285; J1885; J2270; J7120; Q0162; G0479

== ENCOUNTER 2018-05-29 20:34 | Emergency (ER) | payer OTHER ==
[~2018-05-29] VITALS: Ht 175.3 cm; Wt 91.6 kg
[~2018-05-29 20:34] MED LIST changes: +ALPR2TAB2 PO; +AMOX500T PO; +PROM118S5 PO
[2018-05-29 21:03] VITALS: BP 147/80
--- NOTE | 2018-05-30 02:31 | ED.ADGEN ---
Past History Past Medical History: Anxiety, Depression, Diabetes, Hypertension Past Surgical History: Cholecystectomy, Smoking: Greater than 1 pack/day Alcohol Use: Occasionally Drug Use: None Adult General Chief Complaint Chief Complaint Right knee pain HPI HPI Patient is a 38-year-old female presents with right knee pain after bumping yesterday on a cabinet door. Patient states she walked around all day today which made her symptoms worse. No swelling, bruising, erythema or joint effusion on exam. Soft tissue tenderness noted. Patient walks with steady gait. [] Review of Systems Review of Systems Review symptoms as per history of present illness. All other review symptoms are negative. All other systems were reviewed and found to be within normal limits, except as documented in this note. Allergies Allergies Allergies Coded Allergies Type Severity Reaction Last Updated Verified hydrocodone Allergy Unknown 05/04/16 Yes Physical Exam Physical Exam Constitutional: Well developed, well nourished, no acute distress, non-toxic appearance. [] [] Extremities: Right knee, no swelling bruising, erythema, joint effusion, no bony tenderness. Mild soft soft tissue tenderness present. [] Neurologic: Alert and oriented X 3, normal motor function, normal sensory function, no focal deficits noted. [] Psychologic: Affect normal, judgement normal, mood normal. [] Current Patient Data Vital Signs Vital Signs Date Time Temp Pulse Resp B/P (MAP) Pulse Ox O2 Delivery O2 Flow Rate FiO2 05/29/18 21:03 98.2 93 20 97 Room Air EKG EKG [] Radiology/Procedures Radiology/Procedures [] Course & Med Decision Making Course & Med Decision Making Pertinent Labs and Imaging studies reviewed. (See chart for details) [Recommend supportive care] Final Impression Final Impression [1: Right knee contusion] Dragon Disclaimer Dragon Disclaimer This electronic medical record was generated, in whole or in part, using a voice recognition dictation system. SIGRID LYLE DO May 30, 2018 02:31
== END 2018-05-29 21:15 | disposition home or self-care (01) ==
LOC: ER 20:34
DX: S80.01XA Contusion of right knee, initial encounter (principal); E11.9 Type 2 diabetes mellitus without complications; I10 Essential (primary) hypertension; F17.200 Nicotine dependence, unspecified, uncomplicated; Z88.5 Allergy status to narcotic agent; W22.8XXA Striking against or struck by other objects, initial encounter; Y93.89 Activity, other specified; Y92.89 Other specified places as the place of occurrence of the external cause; Y99.8 Other external cause status
CPT/HCPCS: 99282

== ENCOUNTER 2018-07-14 16:55 | Emergency (ER) | payer OTHER ==
[~2018-07-14] VITALS: Ht 175.3 cm; Wt 101.5 kg
[2018-07-14 17:09] VITALS: BP 111/77
[2018-07-14] MEDS ORDERED: CYCL-331 PO (17:18)
--- NOTE | 2018-07-14 17:19 | PHYS DOC ---
Past History Past Medical History: Anxiety, Depression, Diabetes, Hypertension Past Surgical History: Cholecystectomy, Smoking: Greater than 1 pack/day Alcohol Use: Occasionally Drug Use: None Adult General Chief Complaint Chief Complaint: BACK INJURY HPI HPI 38-year-old female with no significant past medical history presents with some upper back discomfort. She states it's been progressive throughout the day. She thinks she Binter twisted the wrong way. She's been lifting her young child. She states it started last night before bed but was much worse this morning. She denies any shortness of breath or dyspnea on exertion. She denies any pleuritic symptoms.] Review of Systems Review of Systems Constitutional: Denies fever or chills [] Eyes: Denies change in visual acuity, redness, or eye pain [] HENT: Denies nasal congestion or sore throat [] Respiratory: Denies cough or shortness of breath [] Cardiovascular: No additional information not addressed in HPI [] GI: Denies abdominal pain, nausea, vomiting, bloody stools or diarrhea [] : Denies dysuria or hematuria [] Musculoskeletal: Per history of present illness[] Integument: Denies rash or skin lesions [] Neurologic: Denies headache, focal weakness or sensory changes [] Endocrine: Denies polyuria or polydipsia [] All other systems were reviewed and found to be within normal limits, except as documented in this note. Allergies Allergies Allergies Coded Allergies Type Severity Reaction Last Updated Verified hydrocodone Allergy Unknown 05/04/16 Yes Physical Exam Physical Exam Constitutional: Well developed, well nourished, mild distress, non-toxic appearance. [] HENT: Normocephalic, atraumatic, bilateral external ears normal, oropharynx moist, no oral exudates, nose normal. [] Eyes: PERRLA, EOMI, conjunctiva normal, no discharge. [] Neck: Normal range of motion, no tenderness, supple, no stridor. [] Cardiovascular:Heart rate regular rhythm, no murmur [] Lungs & Thorax: Bilateral breath sounds clear to auscultation [] Abdomen: Bowel sounds normal, soft, no tenderness, no masses, no pulsatile masses. [] Skin: Warm, dry, no erythema, no rash. [] Back: Some thoracic paraspinal muscle spasm in particular some tenderness to palpable over the right rhomboid. [] Extremities: No tenderness, no cyanosis, no clubbing, ROM intact, no edema. [] Neurologic: Alert and oriented X 3, normal motor function, normal sensory function, no focal deficits noted. [] Psychologic: Affect normal, judgement normal, mood normal. [] Current Patient Data Vital Signs Vital Signs Date Time Temp Pulse Resp B/P (MAP) Pulse Ox O2 Delivery O2 Flow Rate FiO2 07/14/18 17:09 97.8 96 18 98 Room Air EKG EKG [] Radiology/Procedures Radiology/Procedures [] Course & Med Decision Making Course & Med Decision Making Pertinent Labs and Imaging studies reviewed. (See chart for details) [] Dragon Disclaimer Dragon Disclaimer This electronic medical record was generated, in whole or in part, using a voice recognition dictation system. Departure Departure: Impression: Primary Impression: Thoracic myofascial strain Disposition: 01 HOME, SELF-CARE Condition: STABLE Referrals: JAKUB SANTIAGO (PCP) Patient Instructions: Thoracic Strain Additional Instructions: Return to the emergency department any new or concerning symptoms Scripts Cyclobenzaprine Hcl (CYCLOBENZAPRINE HCL) 10 Mg Tablet 1 TAB PO Q8HRS PRN for PAIN, #20 TAB Prov: ERICK CHAPPELL DO 07/14/18 Problem Qualifiers Primary Impression: Thoracic myofascial strain Encounter type: initial encounter Qualified Codes: S29.019A - Strain of muscle and tendon of unspecified wall of thorax, initial encounter ERICK CHAPPELL DO Jul 14, 2018 17:19
[2018-07-14] MEDS ORDERED: CYCLOBENZAPRINE 10 MG TABLET. PO ONE (17:30)
== END 2018-07-14 17:28 | disposition home or self-care (01) ==
LOC: ER 16:55
DX: S29.012A Strain of muscle and tendon of back wall of thorax, initial encounter (principal); F41.9 Anxiety disorder, unspecified; F32.9 Major depressive disorder, single episode, unspecified; E11.9 Type 2 diabetes mellitus without complications; I10 Essential (primary) hypertension; F17.200 Nicotine dependence, unspecified, uncomplicated; Z90.49 Acquired absence of other specified parts of digestive tract; Z98.890 Other specified postprocedural states; Z88.5 Allergy status to narcotic agent; X50.1XXA Overexertion from prolonged static or awkward postures, initial encounter; Y93.89 Activity, other specified; Y92.89 Other specified places as the place of occurrence of the external cause; Y99.8 Other external cause status
CPT/HCPCS: 99283

== ENCOUNTER 2018-08-05 12:22 | Emergency (ER) | payer SELFPAY ==
[~2018-08-05] VITALS: Ht 175.3 cm; Wt 100.1 kg
[~2018-08-05 12:22] MED LIST changes: +ALBU2.5V8 IH; +ALBU2.5V8 INH; -ALBU8.5H8 IH; -ALBU8.5H8 INH
--- NOTE | 2018-08-05 12:43 | PHYS DOC ---
Past History Past Medical History: Anxiety, Depression, Diabetes, Hypertension Past Surgical History: Cholecystectomy, Smoking: Greater than 1 pack/day Alcohol Use: Occasionally Drug Use: None Adult General Chief Complaint Chief Complaint: BACK PAIN OR INJURY HPI HPI Patient is a 38-year-old female who presents to the emergency department for evaluation. She states that yesterday she had the relatively sudden onset of interscapular upper back pain, which has been worsened with movements. She denies any chest pain, or pleuritic pain, but she states she did develop an episode of shortness of breath yesterday, that has not persisted. She has not had any wheezing or cough. She denies any recent travel or immobilizations and is about 8 months , although she is not breast-feeding. She does not have any personal or family history of thromboembolic disease that she is aware of. Movement and palpation of her upper back worsen her symptoms. There are no alleviating factors to her symptoms. Review of Systems Review of Systems Constitutional: Denies fever or chills [] Eyes: Denies change in visual acuity, redness, or eye pain [] HENT: Denies nasal congestion or sore throat [] Respiratory: Denies cough or pleuritic chest pain[] Cardiovascular: The patient denies any current shortness of breath, chest pain, palpitations, or orthopnea[] GI: Denies abdominal pain, nausea, vomiting, bloody stools or diarrhea [] : Denies dysuria or hematuria [] Musculoskeletal: Denies lower back pain or joint pain [] Integument: Denies rash or skin lesions [] Neurologic: Denies headache, focal weakness or sensory changes [] Endocrine: Denies polyuria or polydipsia [] All other systems were reviewed and found to be within normal limits, except as documented in this note. Allergies Allergies Allergies Coded Allergies Type Severity Reaction Last Updated Verified hydrocodone Allergy Unknown 08/05/18 Yes Physical Exam Physical Exam PHYSICAL EXAM: CONSTITUTIONAL: Well developed, well nourished HEAD: normocephalic, atraumatic EENT: PERRL, EOMI. Conjunctivae normal color, sclerae non-icteric; moist mucous membranes. NECK: Supple, non-tender; no meningismus. LUNGS: Lungs CTA, breathing even and unlabored. Normal air movement. HEART: Regular rate and rhythm, no murmur CHEST: No deformity; non-tender ABDOMEN: The abdomen is soft, and non-tender, no masses or bruits. EXTREM: Normal ROM; no deformity, no calf tenderness. Normal pulses palpable in all extremities. There is no pedal edema. SKIN: No rash; no diaphoresis NEURO: Alert; normal speech and cognition; CN's grossly intact; strength grossly intact without focal deficit. BACK: No CVA TTP. There is tenderness to palpation diffusely of the thoracic spine, in the mid and upper thoracic spine, both midline and paraspinal, without step-off or definite focal bony tenderness to palpation. This reproduces the patient's pain. Current Patient Data Vital Signs Vital Signs Date Time Temp Pulse Resp B/P (MAP) Pulse Ox O2 Delivery O2 Flow Rate FiO2 08/05/18 12:25 97.6 91 18 97 Room Air Lab Results Laboratory Tests Test 08/05/18 12:44 White Blood Count 7.0 x10^3/uL Red Blood Count 5.26 x10^6/uL Hemoglobin 15.8 g/dL Hematocrit 46.4 % Mean Corpuscular Volume 88 fL Mean Corpuscular Hemoglobin 30 pg Mean Corpuscular Hemoglobin Concent 34 g/dL Red Cell Distribution Width 13.0 % Platelet Count 243 x10^3/uL Neutrophils (%) (Auto) 51 % Lymphocytes (%) (Auto) 41 % Monocytes (%) (Auto) 6 % Eosinophils (%) (Auto) 2 % Basophils (%) (Auto) 1 % Neutrophils # (Auto) 3.6 x10^3uL Lymphocytes # (Auto) 2.8 x10^3/uL Monocytes # (Auto) 0.4 x10^3/uL Eosinophils # (Auto) 0.2 x10^3/uL Basophils # (Auto) 0.0 x10^3/uL D-Dimer (Ce) 0.76 mg/L Sodium Level 139 mmol/L Potassium Level 4.0 mmol/L Chloride Level 103 mmol/L Carbon Dioxide Level 26 mmol/L Anion Gap 10 Blood Urea Nitrogen 13 mg/dL Creatinine 0.7 mg/dL Estimated GFR (Cockcroft-Gault) 93.2 BUN/Creatinine Ratio 19 Glucose Level 90 mg/dL Calcium Level 8.9 mg/dL Total Bilirubin 0.5 mg/dL Aspartate Amino Transf (AST/SGOT) 15 U/L Alanine Aminotransferase (ALT/SGPT) 19 U/L Alkaline Phosphatase 90 U/L Troponin I Quantitative < 0.017 ng/mL Total Protein 8.3 g/dL Albumin 3.8 g/dL Albumin/Globulin Ratio 0.8 Current Medications Medications (Trade) Dose Ordered Sig/Brian Route PRN Reason Start Time Stop Time Status Last Admin Dose Admin Iohexol (Omnipaque 350 Mg/ml) 100 ml 1X ONCE IV 08/05/18 13:45 08/05/18 13:46 DC 08/05/18 14:01 EKG EKG [Normal sinus rhythm at a rate of 91 bpm, normal axis, normal intervals, nonspecific ST/T changes.] Radiology/Procedures Radiology/Procedures [PROCEDURE: PORTABLE CHEST 1V Chest radiograph 08/05/2018 11:57 AM INDICATION: Migraine with intrascapular pain. COMPARISON: October 26, 2016 TECHNIQUE: Portable upright frontal view of the chest is provided. FINDINGS: The cardiomediastinal silhouette is within normal limits. There are no pleural effusions. There is no pulmonary vascular congestion. There is no pneumothorax. The lungs are clear. No significant osseous abnormality is identified. IMPRESSION: No acute cardiopulmonary process.] CT angio chest: No acute abnormality, per radiologist's telephone report ( written reports are not available due to technical difficulties). There is a 5 mm pulmonary nodule Course & Med Decision Making Course & Med Decision Making 12:40 PM: Initial evaluation in the emergency Department reveals a young female , smoker, who presents to the emergency department with interscapular pain. The pain appears reproducible and is likely musculoskeletal. However, given her shortness of breath, and interscapular location of her pain, aortic dissection and pulmonary embolism are in the differential, although not considered very likely. Initial evaluation to definitively rule out these conditions will be obtained, and if needed CT imaging will be obtained. 4:15 PM: The patient's condition remains stable. Her symptoms are likely musculoskeletal in etiology. I discussed test results with the patient, the need for close follow-up, and return precautions. Pertinent Labs and Imaging studies reviewed. (See chart for details) [] Dragon Disclaimer Dragon Disclaimer This electronic medical record was generated, in whole or in part, using a voice recognition dictation system. Departure Departure: Impression: Primary Impression: Upper back pain Disposition: HOME, SELF-CARE Condition: STABLE Referrals: JAKUB SANTIAGO (PCP) Patient Instructions: Thoracic Strain Additional Instructions: Applying a heating pad to the affected area may help improve your symptoms. The prescribed medications may cause drowsiness-use caution while taking. Scripts Diclofenac Sodium (DICLOFENAC SODIUM) 50 Mg Tablet.dr 1 TAB PO BID for pain, #30 TAB 0 Refills Prov: MT HERNANDEZ MD 08/05/18 Cyclobenzaprine Hcl (CYCLOBENZAPRINE HCL) 10 Mg Tablet 1 TAB PO TID for pain, #20 TAB Prov: MT HERNANDEZ MD 08/05/18 MT HERNANDEZ MD Aug 05, 2018 12:43
[2018-08-05 13:00] LABS: BASO % 1 % (0-3); EOS # 0.2 x10^3/uL (0.0-0.7); EOS % 2 % (0-3); HEMATOCRIT 46.4 % (36.0-47.0); HEMOGLOBIN 15.8 g/dL (12.0-15.5); LYMPH # 2.8 x10^3/uL (1.0-4.8); LYMPH % 41 % (24-48); MEAN CORPUSCULAR HEMOGLOBIN 30 pg (25-35); MEAN CORPUSCULAR HGB CONC 34 g/dL (31-37); MEAN CORPUSCULAR VOLUME 88 fL (79-100); MONO # 0.4 x10^3/uL (0.0-1.1); MONO % 6 % (0-9); NEUT # 3.6 x10^3uL (1.8-7.7); NEUT % 51 % (31-73); PLATELET COUNT 243 x10^3/uL (140-400); RED BLOOD COUNT 5.26 x10^6/uL (3.50-5.40)
--- NOTE | 2018-08-05 13:04 | RAD ---
Chest radiograph 08/05/2018 11:57 AM INDICATION: Migraine with intrascapular pain. COMPARISON: October 26, 2016 TECHNIQUE: Portable upright frontal view of the chest is provided. FINDINGS: The cardiomediastinal silhouette is within normal limits. There are no pleural effusions. There is no pulmonary vascular congestion. There is no pneumothorax. The lungs are clear. No significant osseous abnormality is identified. IMPRESSION: No acute cardiopulmonary process. Electronically signed by: Erica Bajwa MD (08/05/2018 1:00 PM) [id number]
[2018-08-05 13:10] LABS: ALBUMIN 3.8 g/dL (3.4-5.0); ALBUMIN/GLOBULIN RATIO 0.8 (1.0-1.7); CALCIUM 8.9 mg/dL (8.5-10.1); CREATININE 0.7 mg/dL (0.6-1.0); GFR 93.2; TOTAL BILIRUBIN 0.5 mg/dL (0.2-1.0); TOTAL PROTEIN 8.3 g/dL (6.4-8.2)
[2018-08-05] MEDS ORDERED: IOHEXOL 350 MG/ML 100 ML VIAL. IV ONE (13:45)
--- NOTE | 2018-08-05 16:17 | RAD ---
CT ANGIOGRAPHY CHEST Indication: Scapula/back pain. Concern for PE. Migraine.OMNI 300 100 ml used . Comparison: No comparison is available. Technique: After intravenous contrast administration, CT imaging was performed of the chest. MIP reconstructions were obtained. Exposure: One or more of the following individualized dose reduction techniques were utilized for this examination: 1. Automated exposure control 2. Adjustment of the mA and/or kV according to patient size 3. Use of iterative reconstruction technique. FINDINGS: Pulmonary arteries: No evidence of pulmonary embolism. Thoracic aorta: Ascending aorta measures about 3.4 cm transverse diameter. Mild pulsatility artifact at the ascending aorta. No descending aortic aneurysm or dissection. Thyroid gland: Small mediastinal lymph nodes. No evidence of pathologic enlargement. Lymph nodes: No significant enlargement Heart: No significant pericadial effusion. Esophagus: Unremarkable Pleural spaces: No significant effusion Lungs: Very small left upper lobe pulmonary nodule measures 3 mm, may have a small central calcification. No consolidating infiltrate. There is a slightly mosaic attenuation pattern, particularly in the left upper lobe, with areas of relative lucency or focal emphysema. Trachea and central airways: Patent Bones: No destructive process Upper abdomen: Slices through the upper abdomen are limited due to the technique. No obvious acute findings. External Soft Tissue: No acute findings. IMPRESSION: 1. No evidence of pulmonary embolism. 2. Very small pulmonary nodule in the left upper lobe, probably has some mild central calcification. Also there is a granuloma, but regardless, as per Fleischner Society guidelines, no follow-up is necessary unless the patient is high risk in which case a 12 month follow-up CT could be considered. 3. Slightly heterogeneous pulmonary density pattern, with several areas of relative lucency in the left upper lobe in particular, is nonspecific but may represent some focal emphysema or small airway disease. Electronically signed by: Jae Gallardo MD (08/05/2018 2:29 PM) [id number]
[2018-08-05] MEDS ORDERED: DICL50TA4 PO (16:18)
[2018-08-05] MEDS ORDERED: CYCL-331 PO (16:18)
[2018-08-05 16:29] VITALS: BP 134/92
--- NOTE | 2018-08-06 19:36 | EKG ---
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
== END 2018-08-05 16:24 | disposition home or self-care (01) ==
LOC: ER 12:22
DX: M54.6 Pain in thoracic spine (principal); G43.909 Migraine, unspecified, not intractable, without status migrainosus; F41.9 Anxiety disorder, unspecified; F32.9 Major depressive disorder, single episode, unspecified; E11.9 Type 2 diabetes mellitus without complications; I10 Essential (primary) hypertension; F17.200 Nicotine dependence, unspecified, uncomplicated; Z90.49 Acquired absence of other specified parts of digestive tract; Z98.890 Other specified postprocedural states; Z88.5 Allergy status to narcotic agent
CPT/HCPCS: 36415; 71045; 71275; 80053; 84484; 85025; 85379; 93005; 99284; Q9967

== ENCOUNTER 2018-10-26 15:21 | Emergency (ER) | payer OTHER ==
[~2018-10-26] VITALS: Ht 175.3 cm; Wt 104.6 kg
[~2018-10-26 15:21] MED LIST changes: +DICL50TA4 PO
--- NOTE | 2018-10-26 15:57 | PHYS DOC ---
Past History Past Medical History: Anxiety, Depression, Diabetes, Hypertension Past Surgical History: Cholecystectomy, , Other Smoking: Greater than 1 pack/day Alcohol Use: None Drug Use: None Adult General Chief Complaint Chief Complaint: COUGH HPI HPI Patient is a 38-year-old female who presents to the emergency department for evaluation. She states the past 4-5 days, she has had a cough, minimally productive of sputum, along with a sore throat. She has had a few episodes of posttussive emesis, as well as urinary leakage due to the coughing. She also reports a headache secondary to coughing. She has not had any abdominal pain, fevers or chills, or chest pain. There are no alleviating or exacerbating factors to her symptoms. She is a current smoker. Review of Systems Review of Systems Constitutional: Denies fever or chills [] Eyes: Denies change in visual acuity, redness, or eye pain [] HENT: Denies nasal congestion. Reports sore throat [] Respiratory: Denies pleuritic pain or shortness of breath [] Cardiovascular: No additional information not addressed in HPI [] GI: Denies abdominal pain, nausea, vomiting, bloody stools or diarrhea [] : Denies dysuria or hematuria [] Musculoskeletal: Denies back pain or joint pain [] Integument: Denies rash or skin lesions [] Neurologic: Denies focal weakness or sensory changes [] Endocrine: Denies polyuria or polydipsia [] All other systems were reviewed and found to be within normal limits, except as documented in this note. Allergies Allergies Allergies Coded Allergies Type Severity Reaction Last Updated Verified hydrocodone Allergy Unknown 10/26/18 Yes Physical Exam Physical Exam PHYSICAL EXAM: CONSTITUTIONAL: Well developed, well nourished HEAD: normocephalic, atraumatic EENT: PERRL, EOMI. Conjunctivae normal color, sclerae non-icteric; moist mucous membranes. NECK: Supple, non-tender; no meningismus. LUNGS: Lungs CTA, breathing even and unlabored. Normal air movement. There is a dry cough present. HEART: Regular rate and rhythm, no murmur CHEST: No deformity; non-tender ABDOMEN: The abdomen is soft, and non-tender, no masses or bruits. EXTREM: Normal ROM; no deformity, no calf tenderness. Normal pulses palpable in all extremities. There is no pedal edema. SKIN: No rash; no diaphoresis NEURO: Alert; normal speech and cognition; CN's grossly intact; strength grossly intact without focal deficit. BACK: No CVA TTP. Current Patient Data Vital Signs Vital Signs Date Time Temp Pulse Resp B/P (MAP) Pulse Ox O2 Delivery O2 Flow Rate FiO2 10/26/18 15:29 98.2 86 18 97 Room Air EKG EKG [] Radiology/Procedures Radiology/Procedures [PROCEDURE: CHEST PA & LATERAL AP and Lateral Views of the Chest 10/26/2018 3:59 PM Indication: COUGH Comparison: CT chest August 05, 2018 Findings: There is no focal consolidation or infiltrate identified. The cardiomediastinal silhouette is within normal limits. There is no evidence of pneumothorax or pleural effusion. No acute osseous abnormalities are identified. Impression: No evidence of acute cardiopulmonary process. ] Course & Med Decision Making Course & Med Decision Making Pertinent Labs and Imaging studies reviewed. (See chart for details) []Flu and strep are negative. 4:55 PM:Patient remains stable. I discussed test results, the need for close follow-up, and return precautions. Dragon Disclaimer Dragon Disclaimer This electronic medical record was generated, in whole or in part, using a voice recognition dictation system. Departure Departure: Impression: Primary Impression: Cough Disposition: 01 HOME, SELF-CARE Condition: STABLE Referrals: JAKUB SANTIAGO (PCP) Patient Instructions: Acute Bronchitis, Cough, Adult Scripts Benzonatate (TESSALON PERLE) 100 Mg Capsule 2 CAP PO TID for cough, #21 CAP Prov: MT HERNANDEZ MD 10/26/18 MT HERNANDEZ MD Oct 26, 2018 15:57
--- NOTE | 2018-10-26 16:11 | RAD ---
AP and Lateral Views of the Chest 10/26/2018 3:59 PM Indication: COUGH Comparison: CT chest August 05, 2018 Findings: There is no focal consolidation or infiltrate identified. The cardiomediastinal silhouette is within normal limits. There is no evidence of pneumothorax or pleural effusion. No acute osseous abnormalities are identified. Impression: No evidence of acute cardiopulmonary process. Electronically signed by: Dandre Walton MD (10/26/2018 4:08 PM) [id number]
[2018-10-26] MEDS ORDERED: BENZ100C PO (16:42)
[2018-10-26 16:50] LABS: INFLUENZA A PATIENT NEGATIVE (NEGATIVE); INFLUENZA B PATIENT NEGATIVE (NEGATIVE)
[2018-10-26 17:14] VITALS: BP 120/75
== END 2018-10-26 17:14 | disposition home or self-care (01) ==
LOC: ER 15:21
DX: R05 Cough (principal); R09.3 Abnormal sputum; J02.9 Acute pharyngitis, unspecified; R11.11 Vomiting without nausea; R51 Headache; F41.9 Anxiety disorder, unspecified; F32.9 Major depressive disorder, single episode, unspecified; E11.9 Type 2 diabetes mellitus without complications; I10 Essential (primary) hypertension; F17.200 Nicotine dependence, unspecified, uncomplicated; Z88.5 Allergy status to narcotic agent
CPT/HCPCS: 71046; 87070; 87804; 87880; 99284

== ENCOUNTER 2018-12-06 15:24 | Emergency (ER) | payer OTHER ==
[~2018-12-06] VITALS: Ht 175.3 cm; Wt 99.8 kg
[~2018-12-06 15:24] MED LIST changes: +BENZ100C PO
[2018-12-06 15:37] VITALS: BP 121/74
[2018-12-06] MEDS ORDERED: PRED-220 PO (16:14)
--- NOTE | 2018-12-06 16:14 | PHYS DOC ---
Past History Past Medical History: Anxiety, Depression, Diabetes, Hypertension Past Surgical History: Cholecystectomy, , Other Smoking: Greater than 1 pack/day Alcohol Use: None Drug Use: None Adult General Chief Complaint Chief Complaint: SKIN PROBLEM HPI HPI 38-year-old female presents with rash. Patient states that she is concern for poison radha. She was out working in the [employer] with her arm. She now has a rash on her left forearm, right fingers and on her scalp. The patient states that it is pruritic. It does appear to be similar to poison radha she's had the past. She denies any difficulty breathing. She has no other complaints. Review of Systems Review of Systems Constitutional: Denies fever or chills [] Eyes: Denies change in visual acuity, redness, or eye pain [] HENT: Denies nasal congestion or sore throat [] Respiratory: Denies cough or shortness of breath [] Cardiovascular: No additional information not addressed in HPI [] GI: Denies abdominal pain, nausea, vomiting, bloody stools or diarrhea [] : Denies dysuria or hematuria [] Musculoskeletal: Denies back pain or joint pain [] Integument: Rash[] Neurologic: Denies headache, focal weakness or sensory changes [] Endocrine: Denies polyuria or polydipsia [] All other systems were reviewed and found to be within normal limits, except as documented in this note. Allergies Allergies Allergies Coded Allergies Type Severity Reaction Last Updated Verified hydrocodone Allergy Unknown 10/26/18 Yes Physical Exam Physical Exam Constitutional: Well developed, well nourished, no acute distress, non-toxic appearance. [] HENT: Normocephalic, atraumatic, bilateral external ears normal, oropharynx mo ist, no oral exudates, nose normal. [] Eyes: PERRLA, EOMI, conjunctiva normal, no discharge. [] Neck: Normal range of motion, no tenderness, supple, no stridor. [] Cardiovascular:Heart rate regular rhythm, no murmur [] Lungs & Thorax: Bilateral breath sounds clear to auscultation [] Abdomen: Bowel sounds normal, soft, no tenderness, no masses, no pulsatile masses. [] Skin: Vesicular patches on the left forearm, right fingers, and scalp. Ears consistent with rhus dermatitis[] Back: No tenderness, no CVA tenderness. [] Extremities: No tenderness, no cyanosis, no clubbing, ROM intact, no edema. [] Neurologic: Alert and oriented X 3, normal motor function, normal sensory function, no focal deficits noted. [] Psychologic: Affect normal, judgement normal, mood normal. [] Current Patient Data Vital Signs Vital Signs Date Time Temp Pulse Resp B/P (MAP) Pulse Ox O2 Delivery O2 Flow Rate FiO2 12/06/18 15:37 97.9 91 22 96 Room Air EKG EKG [] Radiology/Procedures Radiology/Procedures [] Course & Med Decision Making Course & Med Decision Making Pertinent Labs and Imaging studies reviewed. (See chart for details) We'll give the patient 60 mg of prednisone in the ED. I will also discharge her with a prescription for a prednisone taper. She is stable for discharge at this time. [] Dragon Disclaimer Dragon Disclaimer This electronic medical record was generated, in whole or in part, using a voice recognition dictation system. Departure Departure: Impression: Primary Impression: Poison radha dermatitis Disposition: HOME, SELF-CARE Condition: STABLE Referrals: JAKUB SANTIAGO (PCP) Patient Instructions: Poison Radha, [id number] Scripts Prednisone (PREDNISONE) 10 Mg Tablet 10 MG PO UD for PREDNISONE TAPER, #45 TAB 0 Refills Take 5 tablets by mouth daily for 3 days, then take 4 tablets by mouth daily for 3 days, then take 3 tablets by mouth daily for 3 days, then take 2 tablets by mouth daily for 3 days, then take 1 tablet by mouth daily x 3 days, then stop. Prov: SIGRID OVIEDO DO 12/06/18 SIGRID OVIEDO DO Dec 06, 2018 16:14
[2018-12-06] MEDS ORDERED: predniSONE 20 MG TABLET PO ONE (16:15)
== END 2018-12-06 16:20 | disposition home or self-care (01) ==
LOC: ER 15:24
DX: L23.7 Allergic contact dermatitis due to plants, except food (principal); F41.9 Anxiety disorder, unspecified; F32.9 Major depressive disorder, single episode, unspecified; E11.9 Type 2 diabetes mellitus without complications; I10 Essential (primary) hypertension; F17.200 Nicotine dependence, unspecified, uncomplicated; Z88.5 Allergy status to narcotic agent
CPT/HCPCS: 99283; J7512

== ENCOUNTER 2019-02-09 21:47 | Emergency (ER) | payer SELFPAY ==
[~2019-02-09] VITALS: Ht 175.3 cm; Wt 98.9 kg
[~2019-02-09 21:47] MED LIST changes: +PRED-220 PO
--- NOTE | 2019-02-09 21:55 | ED.ADGEN ---
Past History Past Medical History: Anxiety, Depression, Diabetes, Hypertension Past Surgical History: Cholecystectomy, , Other Smoking: Greater than 1 pack/day Alcohol Use: None Drug Use: None Adult General Chief Complaint Chief Complaint ".. I tripped over some trash bags.. and hurt this hand .. " HPI HPI Patient is a 38 year old female who presents with above hx. has complaints fall with injury to Rt. hand and arm. Patient had a FOOSH type injury. She is right-hand dominant. Distal capillary refill is equal to other left hand. Patient has marked pain on loading of right index finger and thumb. There is some swelling. Patient denies other injury during fall. Patient known diabetic. Patient does smoke. Injury occurred at home. Review of Systems Review of Systems Constitutional: Denies fever or chills [] Eyes: Denies change in visual acuity, redness, or eye pain [] HENT: Denies nasal congestion or sore throat [] Respiratory: Denies cough or shortness of breath [] Cardiovascular: No additional information not addressed in HPI [] GI: Denies abdominal pain, nausea, vomiting, bloody stools or diarrhea [] : Denies dysuria or hematuria [] Musculoskeletal: Denies back pain or joint pain []except complaints in right hand injury Integument: Denies rash or skin lesions [] Neurologic: Denies headache, focal weakness or sensory changes [] Endocrine: Denies polyuria or polydipsia [] All other systems were reviewed and found to be within normal limits, except as documented in this note. Family History Family History Diabetes hypertension Current Medications Current Medications Current Medications Medications (Trade) Dose Ordered Sig/[facility] Start Time Stop Time Status Last Admin Dose Admin Ketorolac Tromethamine (Toradol Im) 60 mg 1X ONCE 02/09/19 22:30 02/09/19 22:31 DC 02/09/19 22:29 60 MG Allergies Allergies Allergies Coded Allergies Type Severity Reaction Last Updated Verified hydrocodone Allergy Unknown 10/26/18 Yes Physical Exam Physical Exam Constitutional: Moderate acute distress, non-toxic appearance. [] HENT: Normocephalic, atraumatic, bilateral external ears normal, oropharynx moist, no oral exudates, nose normal. [] Eyes: PERRLA, EOMI, conjunctiva normal, no discharge. [] Neck: Normal range of motion, no tenderness, supple, no stridor. [] Cardiovascular:Heart rate regular rhythm, no murmur [] Lungs & Thorax: Bilateral breath sounds equal apex with scattered wheezes throughout on auscultation [] Abdomen: Bowel sounds normal, soft, no tenderness, no masses, no pulsatile masses. [] Old surgery scars. Skin: Warm, dry, no erythema, no rash. [] Tattoos Back: No tenderness, no CVA tenderness. [] Extremities: No tenderness, no cyanosis, no clubbing, ROM intact, no edema. [] Except right hand findings as per history of present illness Neurologic: Alert and oriented X 3, normal motor function, normal sensory function, no focal deficits noted. [] Psychologic: Affect normal, judgement normal, mood normal. [] EKG EKG [] Radiology/Procedures Radiology/Procedures I interpretation of hand x-ray shows[]no obvious fx or dislocation. Course & Med Decision Making Course & Med Decision Making Pertinent Labs and Imaging studies reviewed. (See chart for details) Index and third finger taped together for a igor splint. Francisco wrap applied to hand and wrist. Patient use ice as needed. Keep hand elevated. Follow-up primary care. Tylenol and ibuprofen for pain. May use tramadol for marked pain. Return if any concerns. Distal neurovascular intact after application of splint. [] Final Impression Final Impression 1. FOOSH type hand injury mechanism 2. Sprain / Strain 3. Tobacco Abuse 4. DM Lakshmi Disclaimer Lakshmi Disclaimer This electronic medical record was generated, in whole or in part, using a voice recognition dictation system. Discharge Summary Visit Information Final Diagnosis Problems Medical Problems: (1) Sprain and strain Status: Acute Brief Hospital Course Allergies Allergies Coded Allergies Type Severity Reaction Last Updated Verified hydrocodone Allergy Unknown 10/26/18 Yes Brief Hospital Course Ms. Whittaker is a 38 old female who presented with FOOSH type mechanism injury, with sprain /strain Rt. hand and index finger. Discharge Information Condition at Discharge: Improved, Stable Disposition/Orders: D/C to Home Dischare Medications Current Medications Ketorolac Tromethamine (Toradol Im) 60 mg 1X ONCE IM Last administered on 02/09/19at 22:29; Admin Dose 60 MG; Start 02/09/19 at 22:30; Stop 02/09/19 at 22:31; Status DC Active Scripts Active Ultracet Tablet (Tramadol Hcl/Acetaminophen) 1 Each Tablet 1 Tab PO Q6HRS Prednisone 10 Mg Tablet 10 Mg PO UD Take 5 tablets by mouth daily for 3 days, then take 4 tablets by mouth daily for 3 days, then take 3 tablets by mouth daily for 3 days, then take 2 tablets by mouth daily for 3 days, then take 1 tablet by mouth daily x 3 days, then stop. Tessalon Perle (Benzonatate) 100 Mg Capsule 2 Cap PO TID Diclofenac Sodium 50 Mg Tablet.dr 1 Tab PO BID Cyclobenzaprine Hcl 10 Mg Tablet 1 Tab PO TID Cyclobenzaprine Hcl 10 Mg Tablet 1 Tab PO Q8HRS PRN Zofran Odt (Ondansetron) 8 Mg Tab.rapdis 8 Mg PO QIDPRN PRN Promethazine-Codeine Syrup (Promethazine Hcl/Codeine) 118 Ml Syrup 5 Ml PO Q4- 6HRS Amoxicillin 500 Mg Tablet 1 Tab PO TID Pepcid (Famotidine) 20 Mg Tablet 1 Tab PO BID Benadryl (Diphenhydramine Hcl) 25 Mg Capsule 50 Mg PO QID 7 Days Zofran Odt (Ondansetron) 4 Mg Tab.rapdis 1 Tab SL PRN Q8HRS PRN Pantoprazole Sodium 40 Mg Tablet.dr 40 Mg PO DAILYAC 30 Days Proair Hfa Inhaler (Albuterol Sulfate) 8.5 Gm Hfa.aer.ad 2 Puff IH PRN Q4-6HRS Reported Probiotic Plus & Cranberry Cap (Cran/C/B.coag/Fos/L.acid/L.rha) 1 Each Capsule 1 Each PO DAILY Ferrous Sulfate 325 Mg Tablet 65 Mg PO Symbicort 160-4.5 Mcg Inhaler (Budesonide/Formoterol Fumarate) 10.2 Gm Hfa.aer.ad Belviq (Lorcaserin Hcl) 10 Mg Tablet Lisinopril 2.5 Mg Tablet 2.5 Mg DAILY Alprazolam 2 Mg Tablet BID PRN Xanax (Alprazolam) 2 Mg Tablet 1 Tab PO TID Lakshmi Disclaimer This chart was dictated in whole or in part using Voice Recognition software in a busy, high-work load, and often noisy Emergency Department environment. It may contain unintended and wholly unrecognized errors or omissions. BALDO OSULLIVAN MD Feb 09, 2019 21:55
[2019-02-09 21:57] VITALS: BP 121/74
[2019-02-09] MEDS: KETOROLAC 60 MG/2 ML VIAL. IM ONE (22:29)
[2019-02-09] MEDS ORDERED: TRAM1TAB56 PO (22:48)
--- NOTE | 2019-02-10 00:05 | RAD ---
Three-view right hand radiographs 02/09/2019 CLINICAL HISTORY: Right hand injury. PA, lateral and oblique digital radiographs of the right hand were obtained. No fracture or dislocation of the right hand is seen. No radiopaque foreign body is noted. IMPRESSION: No fracture or dislocation of the right hand is seen. Electronically signed by: Galileo Marcial MD (02/10/2019 12:02 AM) [facility]
== END 2019-02-09 23:00 | disposition home or self-care (01) ==
LOC: ER 21:47
DX: S63.91XA Sprain of unspecified part of right wrist and hand, initial encounter (principal); S66.911A Strain of unspecified muscle, fascia and tendon at wrist and hand level, right hand, initial encounter; E11.9 Type 2 diabetes mellitus without complications; I10 Essential (primary) hypertension; F17.200 Nicotine dependence, unspecified, uncomplicated; Z79.899 Other long term (current) drug therapy; Z88.5 Allergy status to narcotic agent; W18.09XA Striking against other object with subsequent fall, initial encounter; Y93.89 Activity, other specified; Y92.89 Other specified places as the place of occurrence of the external cause; Y99.8 Other external cause status
CPT/HCPCS: 73130; 96372; 99284; J1885

== ENCOUNTER 2019-03-13 14:16 | Emergency (ER) | payer OTHER ==
[~2019-03-13] VITALS: Ht 175.3 cm; Wt 97.5 kg
[~2019-03-13 14:16] MED LIST changes: +TRAM1TAB56 PO
--- NOTE | 2019-03-13 15:01 | RAD ---
SHOULDER 2+V LEFT 03/13/2019 2:44 PM INDICATION: Pain COMPARISON: None available. TECHNIQUE: 3 views of the left shoulder are provided. FINDINGS: There is no acute fracture or dislocation. Bone mineralization is within normal limits. Joint spaces are maintained. Regional soft tissues are within normal limits. There is no soft tissue gas or osseous erosion. IMPRESSION: No acute fracture or dislocation of the glenohumeral and acromioclavicular joints. Electronically signed by: Erica Bajwa MD (03/13/2019 2:58 PM) [facility]
[2019-03-13] MEDS ORDERED: HYDR25TA PO (15:18)
[2019-03-13] MEDS ORDERED: OXAP600T2 PO (15:18)
--- NOTE | 2019-03-13 15:18 | PHYS DOC ---
Past History Past Medical History: Anxiety, Depression, Diabetes, Hypertension Past Surgical History: Cholecystectomy, Smoking: Greater than 1 pack/day Alcohol Use: None Drug Use: None Adult General Chief Complaint Chief Complaint: FLANK PAIN HPI HPI Patient is a 39-year-old female presents with left shoulder pain for the past 3- 4 days. Patient fell 6 days ago. No pain initially after the fall. She has been getting good pain relief with Naprosyn. Denies any numbness or tingling. Increased pain with movement. Denies any chest pain or difficulty breathing. Discomfort is moderate to severe in intensity.[] Review of Systems Review of Systems Constitutional: Denies fever or chills [] Eyes: Denies change in visual acuity, redness, or eye pain. Notes that she had an insect bite over her left eye causing some drooping. No difficulty with vision. [] HENT: Denies nasal congestion or sore throat [] Respiratory: Denies cough or shortness of breath [] Cardiovascular: No chest pain or palpitations[] GI: Denies abdominal pain, nausea, vomiting, bloody stools or diarrhea [] : Denies dysuria or hematuria [] Musculoskeletal: Denies back pain, see history of present illness. Patient also notes that she's getting lower extremity leg cramping. She has a long-standing history of potassium issues and has ordered bananas.[] Integument: Denies rash or skin lesions [] Neurologic: Denies headache, focal weakness or sensory changes [] Endocrine: Denies polyuria or polydipsia [] All other systems were reviewed and found to be within normal limits, except as documented in this note. Allergies Allergies Allergies Coded Allergies Type Severity Reaction Last Updated Verified hydrocodone Allergy Unknown 10/26/18 Yes Physical Exam Physical Exam Constitutional: Well developed, well nourished, mild discomfort, non-toxic appearance. [] HENT: Normocephalic, atraumatic, bilateral external ears normal, oropharynx moist, no oral exudates, nose normal. [] Eyes: PERRLA, EOMI, conjunctiva normal, no discharge. Left lateral brow line has a little bit of edema, no significant drooping. Most consistent with insect bite/sting.[] Neck: Normal range of motion, no tenderness, supple, no stridor. No cervical lymphadenopathy[] Cardiovascular:Heart rate regular rhythm, no murmur [] Lungs & Thorax: Bilateral breath sounds clear to auscultation [] Abdomen: Not examined. [] Skin: Warm, dry, no erythema, no rash. [] Back: No tenderness, no CVA tenderness. [] Extremities: Left shoulder has tenderness to palpation diffusely, no bruising, no axillary lymphadenopathy. Decreased active range of motion both with abduction as well as circumduction. Patient is distally neurovascularly intact. There is no clavicular tenderness. No elbow tenderness. Strength is 5 out of 5 with a in the rotator cuff within her limited range of motion. The other 3 extremities show: No tenderness, no cyanosis, no clubbing, ROM intact, no edema. [] Neurologic: Alert and oriented X 3, normal motor function, normal sensory function, no focal deficits noted. Normal gait [] Psychologic: Affect normal, judgement normal, mood normal. [] Current Patient Data Vital Signs Vital Signs Date Time Temp Pulse Resp B/P (MAP) Pulse Ox O2 Delivery O2 Flow Rate FiO2 03/13/19 14:25 97.9 102 16 95 Room Air Lab Results Laboratory Tests Test 03/13/19 15:00 POC Urine HCG, Qualitative hcg negative (Negative) EKG EKG [] Radiology/Procedures Radiology/Procedures PROCEDURE: SHOULDER 2+V LEFT SHOULDER 2+V LEFT 03/13/2019 2:44 PM INDICATION: Pain COMPARISON: None available. TECHNIQUE: 3 views of the left shoulder are provided. FINDINGS: There is no acute fracture or dislocation. Bone mineralization is within normal limits. Joint spaces are maintained. Regional soft tissues are within normal limits. There is no soft tissue gas or osseous erosion. IMPRESSION: No acute fracture or dislocation of the glenohumeral and acromioclavicular joints.[] Course & Med Decision Making Course & Med Decision Making Pertinent Labs and Imaging studies reviewed. (See chart for details) ED course and medical decision making: Patient arrived, was placed in bed, and tolerated exam well. She was transported to and from radiology with any complications. A sling was applied, she was distally neurovascularly intact after sling application. Findings were discussed with patient and family who voiced understanding. All questions were answered. She was discharged in improved condition. There is no evidence of a fracture or dislocation. No evidence of neurovascular compromise. The skin appears to be most likely an insect bite or sting. No evidence of staph scalded skin syndrome, no evidence of toxic epidermal necrolysis. Regarding the muscle cramps, will allow patient to take her oral potassium therapy.[] Lakshmi Disclaimer Dragon Disclaimer This electronic medical record was generated, in whole or in part, using a voice recognition dictation system. Departure Departure: Impression: Primary Impression: Sprain of left shoulder Additional Impressions: Insect bite Muscle cramps Disposition: 01 HOME, SELF-CARE Condition: IMPROVED Referrals: JAKUB SANTIAGO (PCP) Follow-up in 2 days Patient Instructions: Insect Bite, Muscle Cramps, Shoulder Sprain, Shoulder, Range of Motion Exercises, Sling Use After Injury or Surgery Additional Instructions: Follow-up with your regular doctor in 2 days. Take medication as prescribed. Return to the ER if increasing pain, weakness, or any other concerns. Scripts Hydroxyzine Hcl (HYDROXYZINE HCL) 25 Mg Tablet 1 TAB PO TID for allergic reaction, #30 TAB Prov: TEE DORAN DO 03/13/19 Oxaprozin (OXAPROZIN) 600 Mg Tablet 600 MG PO BID for pain, #20 TAB Prov: TEE DORAN DO 03/13/19 Problem Qualifiers Primary Impression: Sprain of left shoulder Encounter type: initial encounter Shoulder sprain type: unspecified sprain Qualified Codes: S43.402A - Unspecified sprain of left shoulder joint, initial encounter Additional Impressions: Insect bite Encounter type: initial encounter Site of insect bite: head Site of insect bite of head: periocular area Laterality: left Qualified Codes: S00.262A - Insect bite (nonvenomous) of left eyelid and periocular area, initial encounter; W57.XXXA - Bitten or stung by nonvenomous insect and other nonvenomous arthropods, initial encounter TEE DORAN DO Mar 13, 2019 15:18
[2019-03-13 15:25] VITALS: BP 140/82
== END 2019-03-13 15:26 | disposition home or self-care (01) ==
LOC: ER 14:16
DX: S43.402A Unspecified sprain of left shoulder joint, initial encounter (principal); S00.262A Insect bite (nonvenomous) of left eyelid and periocular area, initial encounter; M62.838 Other muscle spasm; E11.9 Type 2 diabetes mellitus without complications; I10 Essential (primary) hypertension; F17.200 Nicotine dependence, unspecified, uncomplicated; Z88.5 Allergy status to narcotic agent; W18.39XA Other fall on same level, initial encounter; W57.XXXA Bitten or stung by nonvenomous insect and other nonvenomous arthropods, initial encounter; Y93.89 Activity, other specified; Y92.89 Other specified places as the place of occurrence of the external cause; Y99.8 Other external cause status
CPT/HCPCS: 73030; 81025; 99284

== ENCOUNTER 2019-04-10 12:37 | Emergency (ER) | payer OTHER ==
[~2019-04-10 12:37] MED LIST changes: +HYDR25TA PO; +OXAP600T2 PO
[2019-04-10 12:58] VITALS: BP 104/74
--- NOTE | 2019-04-10 13:06 | PHYS DOC ---
Past History Past Medical History: Anxiety, Bipolar, Depression Past Surgical History: Cholecystectomy, Smoking: Greater than 1 pack/day Alcohol Use: None Drug Use: None Adult General Chief Complaint Chief Complaint: LOWER EXT PAIN HPI HPI 39-year-old female presents with pain of the top of her left foot. Patient noticed a bump a few days ago. It is been getting more painful. She does not recall any particular trauma, but it is painful when she walks or flexes her foot. She denies fever or chills. Review of Systems Review of Systems Constitutional: Denies fever or chills [] Eyes: Denies change in visual acuity, redness, or eye pain [] HENT: Denies nasal congestion or sore throat [] Respiratory: Denies cough or shortness of breath [] Cardiovascular: No additional information not addressed in HPI [] GI: Denies abdominal pain, nausea, vomiting, bloody stools or diarrhea [] : Denies dysuria or hematuria [] Musculoskeletal: Left foot pain[] Integument: Denies rash or skin lesions [] Neurologic: Denies headache, focal weakness or sensory changes [] Endocrine: Denies polyuria or polydipsia [] All other systems were reviewed and found to be within normal limits, except as documented in this note. Allergies Allergies Allergies Coded Allergies Type Severity Reaction Last Updated Verified hydrocodone Allergy Unknown 10/26/18 Yes Physical Exam Physical Exam Constitutional: Well developed, well nourished, no acute distress, non-toxic ap pearance. [] HENT: Normocephalic, atraumatic, bilateral external ears normal, oropharynx moist, no oral exudates, nose normal. [] Eyes: PERRLA, EOMI, conjunctiva normal, no discharge. [] Neck: Normal range of motion, no tenderness, supple, no stridor. [] Cardiovascular:Heart rate regular rhythm, no murmur [] Lungs & Thorax: Bilateral breath sounds clear to auscultation [] Abdomen: Bowel sounds normal, soft, no tenderness, no masses, no pulsatile masses. [] Skin: Warm, dry, no erythema, no rash. [] Back: No tenderness, no CVA tenderness. [] Extremities: Mild tenderness of the top of the left foot, no palpable nodule, no acute process, no obvious deformity.[] Neurologic: Alert and oriented X 3, normal motor function, normal sensory function, no focal deficits noted. [] Psychologic: Affect normal, judgement normal, mood normal. [] EKG EKG [] Radiology/Procedures Radiology/Procedures [] Impressions: Preliminary interpretation: Left foot x-rays negative for fracture or dislocations. calcaneal spurs. Course & Med Decision Making Course & Med Decision Making Pertinent Labs and Imaging studies reviewed. (See chart for details) The patient's x-rays negative for fracture or dislocation. I do not see anything significant and soft tissue. She does have calcaneal spurs. Maybe this is referred pain from the bottom of her foot. She does complain the most with weightbearing. I have advised that she take Center milligrams ibuprofen 3 times a day for 5 days. She'll follow-up with her primary care physician as needed. She is stable for discharge at this time. [] Dragon Disclaimer Dragon Disclaimer This electronic medical record was generated, in whole or in part, using a voice recognition dictation system. Departure Departure: Impression: Primary Impression: Foot sprain Additional Impression: Calcaneal spur of left foot Disposition: 01 HOME, SELF-CARE Condition: STABLE Referrals: JAKUB SANTIAGO (PCP) Patient Instructions: Foot Sprain-Brief, Heel Spur Problem Qualifiers Primary Impression: Foot sprain Encounter type: initial encounter Laterality: left Qualified Codes: S93.602A - Unspecified sprain of left foot, initial encounter SIGRID OVIEDO DO Apr 10, 2019 13:06
--- NOTE | 2019-04-10 14:02 | RAD ---
Examination: FOOT LEFT 3V History: Pain, nodule Comparison/Correlation: None Findings: 3 images of the left lower obtained. Moderate-sized calcaneal spur is present. No acute fracture or bone destruction. Soft tissues are unremarkable. Joint spaces are adequate. Impression: No acute process. Electronically signed by: Jose Martin Daley MD (04/10/2019 1:59 PM) [id number]
== END 2019-04-10 14:00 | disposition home or self-care (01) ==
LOC: ER 12:49
DX: S93.602A Unspecified sprain of left foot, initial encounter (principal); F17.200 Nicotine dependence, unspecified, uncomplicated; M77.32 Calcaneal spur, left foot; Z88.5 Allergy status to narcotic agent; X58.XXXA Exposure to other specified factors, initial encounter; Y93.89 Activity, other specified; Y92.89 Other specified places as the place of occurrence of the external cause; Y99.8 Other external cause status
CPT/HCPCS: 73630; 99284

== ENCOUNTER 2019-05-30 16:01 | Emergency (ER) | payer OTHER ==
[2019-05-30 16:15] VITALS: BP 145/87
[2019-05-30] MEDS ORDERED: oxyCODONE/APAP 5/325 1 TAB TABLET PO ONE (16:30)
--- NOTE | 2019-05-30 17:02 | RAD ---
EXAM: Left hip and pelvis, 3 views. HISTORY: Fall. COMPARISON: None. FINDINGS: A frontal view of the pelvis and frontal and frog-leg views of the left hip are obtained. There is no fracture, dislocation or subluxation. IMPRESSION: No acute osseous finding. Electronically signed by: Trudy Conti MD (05/30/2019 4:59 PM) [id number]
--- NOTE | 2019-05-30 17:04 | RAD ---
Three-view left knee radiographs 05/30/2019 CLINICAL HISTORY: Patient fell in shower 2 days ago with pain. AP, lateral and oblique digital radiographs of the left knee were obtained. No fracture or dislocation left knee is seen. There is no radiographic evidence of a joint effusion. IMPRESSION: No fracture or dislocation of the left knee is seen. Electronically signed by: Galileo Marcial MD (05/30/2019 5:01 PM) [facility]
[2019-05-30] MEDS ORDERED: OXYC1TAB15 PO (17:05)
--- NOTE | 2019-05-30 18:17 | PHYS DOC ---
Past History Past Medical History: Anxiety, Bipolar, Depression Past Surgical History: Cholecystectomy, Smoking: Greater than 1 pack/day Alcohol Use: None Drug Use: None Adult General Chief Complaint Chief Complaint: BACK PAIN OR INJURY HPI HPI Patient is a 39-year-old female with a chief complaint of fall in the shower she slipped apparently she normally takes a shower with her was not doing so at this time around she hit her left knee straight on the top of the patella as well as landed on her left points to her posterior superior iliac spine. She has sharp pain in both of those areas increasing with time and palpation and movement. Did not hit her head Current Medications Current Medications Current Medications Medications (Trade) Dose Ordered Sig/Brian Start Time Stop Time Status Last Admin Dose Admin Oxycodone/ Acetaminophen (Percocet 5/325) 2 tab 1X ONCE 05/30/19 16:30 05/30/19 16:34 DC 05/30/19 16:55 2 TAB Allergies Allergies Allergies Coded Allergies Type Severity Reaction Last Updated Verified hydrocodone Allergy Unknown 10/26/18 Yes Physical Exam Physical Exam Constitutional: Well developed, well nourished, no acute distress, non-toxic appearance. [] HENT: Normocephalic, atraumatic, bilateral external ears normal, oropharynx moist, no oral exudates, nose normal. [] Eyes: PERRLA, EOMI, conjunctiva normal, no discharge. [] Neck: Normal range of motion, no tenderness, supple, no stridor. [] Cardiovascular:Heart rate regular rhythm, no murmur Lungs & Thorax: Bilateral breath sounds clear to auscultation [] Abdomen: Bowel sounds normal, soft, no tenderness, no masses, no pulsatile masses. [] Skin: Warm, dry, no erythema, no rash. [] Back: No tenderness, no CVA tenderness. [] Extremities: Tenderness to palpation of left patella is noted no obvious trauma identified also same in the posterior superior iliac spine. Neurologic: Alert and oriented X 3, normal motor function, normal sensory func tion, no focal deficits noted. [] Current Patient Data Vital Signs Vital Signs Date Time Temp Pulse Resp B/P (MAP) Pulse Ox O2 Delivery O2 Flow Rate FiO2 05/30/19 16:15 101 20 97 Room Air Lab Results * None Blood Pressure Systolic * 145 mm Hg (100-140) H Blood Pressure Diastolic * 87 mm Hg (60-100) Blood Pressure Mean * 106 mm Hg Pulse Rate * 101 beats per minute (60-90) H Respiratory Rate * 20 breaths per minute (12-24) Oxygen Delivery Method * Room Air Bedside Pulse Oximetry * 97 % Treatment Prior to Arrival * No Complaint of Pain * Yes Pain Scale Type * Numeric Pain Assessment Label * Lower * Pain Location Back * Pain Description Acute Numeric Pain Scale * 10 LOC * Alert EKG EKG [] Radiology/Procedures Radiology/Procedures [] CLINICAL HISTORY: Patient fell in shower 2 days ago with pain. AP, lateral and oblique digital radiographs of the left knee were obtained. No fracture or dislocation left knee is seen. There is no radiographic evidence of a joint effusion. IMPRESSION: No fracture or dislocation of the left knee is seen. Electronically signed by: Galileo Marcial MD (05/30/2019 5:01 PM) [facility] DICTATED AND SIGNED BY: GALILEO MARCIAL MD DATE: 05/30/19 170 CC: RHONDA LAMBERT MD; JAKUB SANTIAGO ~ Impressions: COMPARISON: None. FINDINGS: A frontal view of the pelvis and frontal and frog-leg views of the left hip are obtained. There is no fracture, dislocation or subluxation. IMPRESSION: No acute osseous finding. Electronically signed by: Dyana Cain MD (05/30/2019 4:59 PM) [place] [id number] DICTATED AND SIGNED BY: DYANA CAIN MD DATE: 05/30/19 [id number] CC: RHONDA LAMBERT MD; JAKUB SANTIAGO ~ Course & Med Decision Making Course & Med Decision Making Pertinent Labs and Imaging studies reviewed. (See chart for details) []39-year-old female mechanical fall knee and posterior back pain x-rays negative reassurance provided short course of oxycodone only recommended only a couple days worth Dragon Disclaimer Dragon Disclaimer This electronic medical record was generated, in whole or in part, using a voice recognition dictation system. Departure Departure: Impression: Primary Impression: Contusion Disposition: 01 HOME, SELF-CARE Condition: STABLE Patient Instructions: Contusion, [id number] Scripts Oxycodone Hcl/Acetaminophen (PERCOCET 5-325 MG TABLET ) 1 Each Tablet 1 TAB PO PRN BID PRN for PAIN MDD 2 Tablet(s) for 5 Days, #10 TAB 0 Refills Prov: RHONDA LAMBERT MD 05/30/19 RHONDA LAMBERT MD May 30, 2019 18:17
== END 2019-05-30 17:09 | disposition home or self-care (01) ==
LOC: ER 16:06
DX: S80.02XA Contusion of left knee, initial encounter (principal); F17.200 Nicotine dependence, unspecified, uncomplicated; Z88.5 Allergy status to narcotic agent; W18.2XXA Fall in (into) shower or empty bathtub, initial encounter; Y93.E1 Activity, personal bathing and showering; Y92.89 Other specified places as the place of occurrence of the external cause; Y99.8 Other external cause status
CPT/HCPCS: 73502; 73562; 99284

== ENCOUNTER → 2019-10-14 | Outpatient (CLI) | payer OTHER ==
[~2019-10-14] MED LIST changes: +OXYC1TAB15 PO
--- NOTE | 2019-10-17 18:27 | RAD ---
BILATERAL SCREENING MAMMOGRAM History: Routine screening. Comparison: None. This is a baseline.. Technique: Routine bilateral digital mammogram views were obtained. Findings: Breast Tissue Density B : There are scattered areas of fibroglandular density. Asymmetry involving the right upper posterior breast is present. This may present a focal asymmetry with corresponding finding on the CC projection at the outer aspect. No suspicious calcifications or distortion.. IMPRESSION: Right upper outer breast asymmetry. This probably represents summation of breast parenchyma. Spot compression recommended. Ultrasound may be needed. BI-RADS Category 0: Incomplete: Need additional imaging evaluation. The images were reviewed with computer aided detection. Patient information is entered into the reminder system with a target due date for the next screening mammogram. Mammography is the most sensitive method for finding small breast cancers, but it does not detect them all and is not a substitute for careful clinical examination. A negative mammogram does not negate a clinically suspicious finding and should not result in delay in biopsying a clinically suspicious abnormality. "Our facility is accredited by the [employer] Mammography Program." Electronically signed by: Jose Martin Daley MD (10/17/2019 6:24 PM) [id number]
== END ==
LOC: MAMMO 11:06
PROVIDERS: ATTEND Physician Assistant
DX: Z12.31 Encounter for screening mammogram for malignant neoplasm of breast (principal)
CPT/HCPCS: 77067

== ENCOUNTER → 2019-10-19 | Outpatient (CLI) | payer OTHER ==
--- NOTE | 2019-10-19 12:19 | RAD ---
Noncontrast CT scan of the chest compared to CT angiography of the chest dated August 05, 2018 for chronic cough. TECHNIQUE: Contiguous helical 3 mm axial images are obtained from the thoracic inlet to the base of the diaphragm. Sagittal and coronal reformations are evaluated. FINDINGS: There has been a prior cholecystectomy. Heart size within normal limits. There are innumerable subcentimeter mediastinal and hilar lymph nodes, with no suspicious adenopathy identified. Evaluation of the upper abdominal organs is limited by lack of IV contrast, however no gross morphologic abnormalities of the visualized organs are identified. No suspicious osteoblastic or osteolytic bone lesions are seen. The previously seen tiny benign calcified granuloma in the left upper lung is stable and unchanged. No further follow-up is required. No other lung nodules or masses are identified. Wedge-shaped area of lucency in the left upper lung is again noted, and may represent focal emphysema, or chronic congenital or acquired vascular atrophy. Heart size within normal limits. IMPRESSION: 1. No acute cardiopulmonary findings on the CT scan. 2. Stable appearing focal lucency in the left upper lung is of uncertain etiology but is chronic and benign. Considerations include congenital or acquired focal emphysema versus small vessel vascular atrophy. 3. Stable small left upper lobe benign granuloma. No further follow up required. PQRS Compliance Statement: One or more of the following individualized dose reduction techniques were utilized for this examination: 1. Automated exposure control 2. Adjustment of the mA and/or kV according to patient size 3. Use of iterative reconstruction technique Electronically signed by: Juan Ricardo MD (10/19/2019 12:16 PM) [id number]
== END | disposition home or self-care (01) ==
LOC: CT 11:19
PROVIDERS: ATTEND Physician Assistant
DX: J84.10 Pulmonary fibrosis, unspecified (principal); J43.9 Emphysema, unspecified
CPT/HCPCS: 71250

== ENCOUNTER → 2019-10-24 | Outpatient (CLI) | payer OTHER ==
--- NOTE | 2019-10-24 14:34 | RAD ---
Examination: Right digital diagnostic mammogram. INDICATION: Screening recall from baseline for right breast upper outer asymmetry. COMPARISON: Baseline bilateral mammogram of 10/14/2019. TECHNIQUE: Spot compression views of the right breast in the CC and MLO projections were obtained. A full-field right ML view was obtained and reviewed with computer-aided detection. FINDINGS: Scattered fibroglandular densities. The questioned asymmetry changed configuration in a pattern compatible with benign overlap of fibroglandular tissue. No persistent mammographic abnormality. IMPRESSION: Negative right diagnostic mammogram. No evidence of malignancy. Recommend return to routine screening next due in one year. BI-RADS Category 1 Negative Patient entered into a reminder system with target due date for next mammogram. BI-RADS 1 -- negative findings (within normal)
== END | disposition home or self-care (01) ==
LOC: MAMMO 13:43
PROVIDERS: ATTEND Physician Assistant
DX: R92.2 Inconclusive mammogram (principal)
CPT/HCPCS: 77065

== ENCOUNTER 2019-11-13 14:41 | Emergency (ER) | payer OTHER ==
[~2019-11-13] VITALS: Ht 175.3 cm; Wt 104.6 kg
[2019-11-13 15:20] VITALS: BP 133/95
--- NOTE | 2019-11-13 16:56 | RAD ---
EXAM: Right lower extremity venous Doppler sonogram. HISTORY: Pain and swelling. TECHNIQUE: Blackburn scale and color Doppler sonographic evaluation of the right lower extremity veins with spectral waveform analysis was performed. FINDINGS: There is normal color flow, normal compressibility and there are normal spectral waveforms in the common femoral, superficial femoral, popliteal, posterior tibial and greater saphenous veins. IMPRESSION: No Doppler evidence of lower extremity deep venous thrombosis. Electronically signed by: Trudy Conti MD (11/13/2019 4:54 PM) [facility]
--- NOTE | 2019-11-13 17:11 | PHYS DOC ---
Past History Past Medical History: Anxiety, Bipolar, Depression Past Medical History Lupus Past Surgical History: Cholecystectomy, Smoking: Cigarettes, Greater than 1 pack/day Alcohol Use: None Drug Use: None Adult General Chief Complaint Chief Complaint: LOWER EXTREMITY EDEMA HPI HPI 39-year-old female presents with right lower extremity pain and swelling that has been ongoing for the past 3-4 days. Reports was seen by her Cover Operator on Thursday and was told she needed to present to ED at that time for an ultrasound to rule out a DVT. Patient reports she decided to see if things would improve, but they haven't. Reports history of lupus. Denies history of DVT/PE. Denies chest pain and SOA. Denies trauma. Denies fever/chills. Denies erythema. Review of Systems Review of Systems Constitutional: Denies fever or chills Eyes: Denies redness or eye pain HENT: Denies nasal congestion or sore throat Respiratory: Denies cough or shortness of breath Cardiovascular: Denies chest pain or palpitations GI: Denies abdominal pain, nausea, or vomiting : Denies dysuria or hematuria Musculoskeletal: Reports right leg pain, tingling, and swelling Integument: Denies rash or skin lesions Neurologic: Denies headache, focal weakness or sensory changes Complete systems were reviewed and found to be within normal limits, except as documented in this note. Allergies Allergies Allergies Coded Allergies Type Severity Reaction Last Updated Verified hydrocodone Allergy Unknown 10/26/18 Yes Physical Exam Physical Exam Constitutional: Well developed, well nourished, no acute distress, non-toxic appearance HENT: Normocephalic, atraumatic, oropharynx moist Eyes: Conjunctiva normal, no discharge Neck: Normal range of motion, no tenderness, supple Cardiovascular: Right PT pulse +2 Lungs & Thorax: No respiratory distress, equal chest rise and fall Skin: Warm, dry, no erythema, no rash Extremities: No calf tenderness, ROM intact, trace edema bilaterally to lower extremities Neurologic: Alert and oriented X 3, normal motor function, normal sensory function, no focal deficits noted Psychologic: Affect normal, judgment normal Current Patient Data Vital Signs Vital Signs Date Time Temp Pulse Resp B/P (MAP) Pulse Ox O2 Delivery O2 Flow Rate FiO2 20 15:20 97.5 89 16 133/95 (108) 97 EKG EKG [] Radiology/Procedures Radiology/Procedures PROCEDURE: VENOUS LOWER EXTREMITY RIGHT EXAM: Right lower extremity venous Doppler sonogram. HISTORY: Pain and swelling. TECHNIQUE: Blackburn scale and color Doppler sonographic evaluation of the right lower extremity veins with spectral waveform analysis was performed. FINDINGS: There is normal color flow, normal compressibility and there are normal spectral waveforms in the common femoral, superficial femoral, popliteal, posterior tibial and greater saphenous veins. IMPRESSION: No Doppler evidence of lower extremity deep venous thrombosis. Electronically signed by: Trudy Conti MD (11/13/2019 4:54 PM) [facility] Course & Med Decision Making Course & Med Decision Making Pertinent Imaging studies reviewed. (See chart for details) Patient presents with concern for possible DVT to right lower extremity. Patient describes pain that sounds neuropathic. Patient with good pulses. Venous Doppler obtained without acute process. Patient stable for discharge with outpatient follow-up with PCP. Discussed findings and plan with patient, who acknowledges understanding and agreement. Dragon Disclaimer Dragon Disclaimer This electronic medical record was generated, in whole or in part, using a voice recognition dictation system. Departure Departure: Impression: Primary Impression: Paresthesia and pain of right extremity Disposition: HOME, SELF-CARE Condition: STABLE Referrals: JAKUB SANTIAGO (PCP) Patient Instructions: Pain, Neuropathic, Paresthesia, [id number] RYAN BURTON DO Nov 13, 2019 17:11
== END 2019-11-13 17:15 | disposition home or self-care (01) ==
LOC: ER 14:41
DX: R20.2 Paresthesia of skin (principal); M79.604 Pain in right leg; R22.31 Localized swelling, mass and lump, right upper limb; F17.210 Nicotine dependence, cigarettes, uncomplicated; Z88.5 Allergy status to narcotic agent
CPT/HCPCS: 93971; 99284-25

== ENCOUNTER 2019-11-30 15:19 | Emergency (ER) | payer OTHER ==
[~2019-11-30] VITALS: Ht 175.3 cm; Wt 104.6 kg
[2019-11-30 15:20] VITALS: BP 119/84
--- NOTE | 2019-11-30 15:50 | PHYS DOC ---
Past History Past Medical History: Anxiety, Bipolar, Depression Past Surgical History: Cholecystectomy, Smoking: Cigarettes, Greater than 1 pack/day Alcohol Use: None Drug Use: None General Adult EDM: Chief Complaint: SKIN RASH/ABSCESS HPI: HPI: 39-year-old female past medical history significant for lupus, anxiety, depression and bipolar disorder, presents the ED with complaints of painful redness and dry cracks to the dorsum of both hands localized worse over MCP joints. Patient states an increase in hand washing since COVID started-using alvaro liquid soap. Using moisturizers. Denies any chemical exposures. No new medications. No rash in mucous membranes. ROS: Denies any associated fever, chills, sensory or motor deficits, vesicular lesions, cough, sore throat, dyspnea, chest pain, nausea or vomiting, abdominal pain, leg swelling or other concerning sxs. Allergies: Allergies: Allergies Coded Allergies Type Severity Reaction Last Updated Verified hydrocodone Allergy Unknown 10/26/18 Yes Physical Exam: PE: Constitutional: Well developed, well nourished, no acute distress, non-toxic appearance. HENT: Normocephalic, atraumatic, oropharynx moist, no oral exudates, Eyes: EOMI, conjunctiva normal, no discharge. Neck: Normal range of motion, supple, Cardiovascular:Heart rate regular rhythm, no murmur Lungs & Thorax: Equal bilateral chest rise, speaking in full sentences, no Lander distress Abdomen: normal, soft, no tenderness, Skin: Warm, dry, dry red/cracked hands over dorsal aspect - no blisters, coalesced erythema/crepitus/induration/fluctuance Extremities: No tenderness, no cyanosis, no clubbing, ROM intact, no edema. Neurologic: Alert and oriented X 3, normal motor function, normal sensory function, no focal deficits noted. Psychologic: Affect normal, judgement normal, mood normal. Course & Med Decision Making: Course & Med Decision Making Impression: Dry skin, low suspicion for life-threatening rash or infection -no flexor tenosynovitis. Recommend aquaphor/cetaphil/eucerin cream and topical triple abx ointment bid. Strict return precautions for decreased ROM/fever. PMD followup in 24-48 hours. All of patient's questions were answered and she was stable at time of discharge. Dragon Disclaimer: Dragon Disclaimer: This electronic medical record was generated, in whole or in part, using a voice recognition dictation system. Departure Departure: Impression: Primary Impression: Dry skin dermatitis Additional Impression: Lupus (systemic lupus erythematosus) Disposition: 01 HOME, SELF-CARE Condition: STABLE Referrals: JAKUB SANTIAGO (PCP) Patient Instructions: Hand Dermatitis LALIT BRANCH DO Nov 30, 2019 15:50
== END 2019-11-30 16:02 | disposition home or self-care (01) ==
LOC: ER 15:19
DX: L85.3 Xerosis cutis (principal); M32.9 Systemic lupus erythematosus, unspecified; F17.210 Nicotine dependence, cigarettes, uncomplicated; Z88.5 Allergy status to narcotic agent
CPT/HCPCS: 99282

== ENCOUNTER 2019-12-14 21:52 | Emergency (ER) | payer OTHER ==
[~2019-12-14] VITALS: Ht 175.3 cm; Wt 104.6 kg
[2019-12-14 21:52] VITALS: BP 142/80
--- NOTE | 2019-12-14 22:02 | PHYS DOC ---
Past History Past Medical History: Anxiety, Bipolar, Depression Past Surgical History: Cholecystectomy, Smoking: Cigarettes, Greater than 1 pack/day Alcohol Use: None Drug Use: None General Adult HPI: HPI: Patient is a 39 year old female who presents with above hx and complaints reportedly drop a rock on Rt. and punching wall with Lt. hand. Pt. not in the the room upon checking for pt. Left without notification to staff. No answer on phone [phone]. Heart Score: Risk Factors: Risk Factors: DM, Current or recent (<one month) smoker, HTN, HLP, family history of CAD, obesity. Risk Scores: Score 0 - 3: 2.5% MACE over next 6 weeks - Discharge Home Score 4 - 6: 20.3% MACE over next 6 weeks - Admit for Clinical Observation Score 7 - 10: 72.7% MACE over next 6 weeks - Early Invasive Strategies Allergies: Allergies: Allergies Coded Allergies Type Severity Reaction Last Updated Verified hydrocodone Allergy Unknown 10/26/18 Yes Physical Exam: PE: Pt. not in room EKG: EKG: [] Radiology/Procedures: Radiology/Procedures: [] Course & Med Decision Making: Course & Med Decision Making Pertinent Labs and Imaging studies reviewed. (See chart for details) Pt. not in room. Pt. left without notification to staff. [] Lakshmi Disclaimer: Lakshmi Disclaimer: This electronic medical record was generated, in whole or in part, using a voice recognition dictation system. Departure Departure: Disposition: HOME/RESIDENCE PRIOR TO ADM Condition: STABLE Referrals: JAKUB SANTIAGO (PCP) Lakshmi Disclaimer This chart was dictated in whole or in part using Voice Recognition software in a busy, high-work load, and often noisy Emergency Department environment. It may contain unintended and wholly unrecognized errors or omissions. BALDO OSULLIVAN MD December 14, 2019 22:02
== END 2019-12-14 23:25 | disposition left against medical advice (07) ==
LOC: ER 21:52
DX: M79.642 Pain in left hand (principal); F41.9 Anxiety disorder, unspecified; F32.9 Major depressive disorder, single episode, unspecified; F17.210 Nicotine dependence, cigarettes, uncomplicated; Z98.890 Other specified postprocedural states; Z90.49 Acquired absence of other specified parts of digestive tract; Z88.5 Allergy status to narcotic agent
CPT/HCPCS: 99281

== ENCOUNTER → 2019-12-16 | Outpatient (CLI) | payer OTHER ==
[2019-12-14 21:52] VITALS: BP 142/80
--- NOTE | 2019-12-16 15:52 | RAD ---
EXAM: FOOT RIGHT 3V 12/16/2019 12:00 AM CLINICAL INDICATION:Right foot pain COMPARISON:None TECHNIQUE:3 views of the right foot FINDINGS:No acute fracture. Alignment is normal. Joint spaces are maintained. There is a prominent plantar calcaneal enthesophyte. Soft tissue is normal. IMPRESSION: 1. No acute abnormality. 2. Prominent plantar calcaneal enthesophyte. Electronically signed by: Khadijah Rivers MD (12/16/2019 3:49 PM) [id number]
== END | disposition home or self-care (01) ==
LOC: RAD 15:22
PROVIDERS: ATTEND Physician Assistant
DX: M77.31 Calcaneal spur, right foot (principal)
CPT/HCPCS: 73630

== ENCOUNTER 2020-01-03 15:42 | Emergency (ER) | payer OTHER ==
[~2020-01-03] VITALS: Ht 175.3 cm; Wt 104.6 kg
[2020-01-03 15:45] VITALS: BP 129/82
[2020-01-03] MEDS ORDERED: ACETAMINOPHEN 500 MG TABLET PO ONE (16:15)
--- NOTE | 2020-01-03 16:33 | RAD ---
SHOULDER 2+V LEFT 01/03/2020 4:08 PM INDICATION: Pain status post fall COMPARISON: None available. TECHNIQUE: 3 views of the left shoulder are provided. FINDINGS/ IMPRESSION: There is no acute fracture or dislocation. Joint spaces are maintained. Bone mineralization is within normal limits. Regional soft tissues are within normal limits. There is no soft tissue gas or osseous erosion. No radiopaque foreign body. Electronically signed by: Erica Bajwa MD (01/03/2020 4:29 PM) [facility] [place]
[2020-01-03] MEDS ORDERED: ORPH-16 PO (16:41)
--- NOTE | 2020-01-03 16:41 | PHYS DOC ---
Past History Past Medical History: Anxiety, Bipolar, Depression Additional Past Medical Histor: Lupus Past Surgical History: Cholecystectomy, Smoking: Cigarettes, Greater than 1 pack/day Alcohol Use: None Drug Use: None General Adult EDM: Chief Complaint: UPPER EXTREMITY PAIN HPI: HPI: 39-year-old female presents with report of mechanical trip and fall while at home with left shoulder pain. Reports worse with range of motion. Denies head trauma or neck pain. Denies swelling. Denies bruising denies . Review of Systems: Review of Systems: Constitutional: Denies fever or chills Eyes: Denies redness or discharge HENT: Denies nasal congestion or sore throat Respiratory: Denies cough or shortness of breath Cardiovascular: Denies chest pain or palpitations GI: Denies abdominal pain, nausea, vomiting, or diarrhea : Denies dysuria or hematuria Musculoskeletal: Denies back pain; reports left shoulder pain Integument: Denies rash or skin lesion Neurologic: Denies headache, focal weakness or sensory changes Psychiatric: Denies depression or anxiety Complete systems were reviewed and found to be within normal limits, except as documented in this note. Current Medications: Current Meds: Current Medications Medications (Trade) Dose Ordered Sig/Brian Start Time Stop Time Status Last Admin Dose Admin Acetaminophen (Tylenol) 500 mg 1X ONCE 01/03/20 16:15 01/03/20 16:16 DC Allergies: Allergies: Allergies Coded Allergies Type Severity Reaction Last Updated Verified hydrocodone Allergy Unknown 10/26/18 Yes Physical Exam: PE: Constitutional: Well developed, well nourished, no acute distress, non-toxic appearance HENT: Normocephalic, atraumatic Eyes: PERRL, EOMI, conjunctiva normal, no discharge Neck: Normal range of motion, no midline tenderness, supple Lungs & Thorax: No respiratory distress, equal chest rise and fall Skin: Warm, dry, no erythema, no rash Extremities: Left lateral clavicle tenderness on palpation, left glenohumeral tenderness, ROM intact but with pain to left shoulder with flexion/extension/abduction, no edema, no deformity Neurologic: Alert and oriented X 3, normal motor function, normal sensory function, no focal deficits noted Psychologic: Affect normal, judgement normal EKG: EKG: [] Radiology/Procedures: Radiology/Procedures: PROCEDURE: SHOULDER 2+V LEFT SHOULDER 2+V LEFT 01/03/2020 4:08 PM INDICATION: Pain status post fall COMPARISON: None available. TECHNIQUE: 3 views of the left shoulder are provided. FINDINGS/ IMPRESSION: There is no acute fracture or dislocation. Joint spaces are maintained. Bone mineralization is within normal limits. Regional soft tissues are within normal limits. There is no soft tissue gas or osseous erosion. No radiopaque foreign body. Electronically signed by: Erica Bajwa MD (01/03/2020 4:29 PM) [facility] [place] Course & Med Decision Making: Course & Med Decision Making Pertinent Imaging studies reviewed. (See chart for details) Patient presents with mechanical fall at home with subsequent left shoulder pain. Limb neurovascularly intact. No deformity appreciated. Patient neurologically intact. Ice applied. Pain addressed. X-ray obtained without findings consistent for acute fracture or dislocation. Sling provided for comfort. Patient educated on need to perform at least 10 shoulder circles in a row 5 times daily to prevent frozen shoulder. Patient stable for discharge home with outpatient follow-up with PCP/orthopedics. Orthopedic referral provided. Discussed findings and plan wi th patient, who acknowledges understanding and agreement. Lakshmi Disclaimer: Lakshmi Disclaimer: This electronic medical record was generated, in whole or in part, using a voice recognition dictation system. Splinting Splinting : Location: Left shoulder Pre-Made Type: sling Pre-Proc Neuro Vasc Exam: normal Post-Proc Neuro Vasc Exam: normal, unchanged from pre-exam Departure Departure: Impression: Primary Impression: Left shoulder strain Qualified Codes: S46.912A - Strain of unspecified muscle, fascia and tendon at shoulder and upper arm level, left arm, initial encounter Disposition: 01 HOME/RESIDENCE PRIOR TO ADM Condition: STABLE Referrals: JAKUB SANTIAGO (PCP) YUAN RYAN MD Patient Instructions: Shoulder Sprain, Shoulder, Range of Motion Exercises Scripts Orphenadrine Citrate (ORPHENADRINE CITRATE) 100 Mg Tablet.er 1 TAB PO BID PRN for MUSCLE PAIN, #10 TAB 0 Refills Prov: RYAN BURTON DO 01/03/20 RYAN BURTON DO January 03, 2020 16:41
== END 2020-01-03 16:48 | disposition home or self-care (01) ==
LOC: ER 15:42
DX: S46.912A Strain of unspecified muscle, fascia and tendon at shoulder and upper arm level, left arm, initial encounter (principal); F17.210 Nicotine dependence, cigarettes, uncomplicated; Z88.5 Allergy status to narcotic agent; W01.0XXA Fall on same level from slipping, tripping and stumbling without subsequent striking against object, initial encounter; Y93.89 Activity, other specified; Y92.098 Other place in other non-institutional residence as the place of occurrence of the external cause; Y99.8 Other external cause status
CPT/HCPCS: 73030; 99283

== ENCOUNTER → 2020-01-23 | Outpatient (CLI) | payer OTHER ==
[2020-01-03 15:45] VITALS: BP 129/82
[~2020-01-23] MED LIST changes: +ORPH-16 PO
[2020-01-24 13:08] LABS: RNP ANTIBODY 0.9 AI (0.0-0.9); SMITH AB <0.2 AI (0.0-0.9)
== END ==
LOC: LAB 09:29
PROVIDERS: ATTEND Internal Medicine Rheumatology
DX: R76.0 Raised antibody titer (principal); R89.9 Unspecified abnormal finding in specimens from other organs, systems and tissues
CPT/HCPCS: 36415; 86235

== ENCOUNTER 2020-02-29 13:37 | Emergency (ER) | payer OTHER ==
[~2020-02-29] VITALS: Ht 175.3 cm; Wt 104.6 kg
[2020-02-29 13:46] VITALS: BP 128/92
--- NOTE | 2020-02-29 13:51 | PHYS DOC ---
Past History Past Medical History: Anxiety, Bipolar, Depression, Hypertension Additional Past Medical Histor: Lupus Past Surgical History: Cholecystectomy, Smoking: Cigarettes, Greater than 1 pack/day Alcohol Use: None Drug Use: None General Adult EDM: Chief Complaint: ANKLE PROBLEM HPI: HPI: 40-year-old female significant history of hypertension, lupus, lupus anticoagulant on aspirin, who presents for evaluation of inversion injury of the right ankle that occurred 2 days ago, while getting out of bed. She again struck the lateral aspect of the ankle against the bathroom cabinet today, further worsening the pain. She is still ambulatory, though with pain. She reports the lateral aspect of her ankle is area of greatest pain, just around the lateral malleolus. No weakness or paresthesia. Review of Systems: Review of Systems: Gen: No fever, chills. CV: No CP, palpitations. Resp. No SOB, cough. GI: No abd pain, N/V. Neuro: No paresthesia or weakness. MSK: Reports arthralgia. Skin: No acute rash or lesion. Heart Score: Risk Factors: Risk Factors: DM, Current or recent (<one month) smoker, HTN, HLP, family history of CAD, obesity. Risk Scores: Score 0 - 3: 2.5% MACE over next 6 weeks - Discharge Home Score 4 - 6: 20.3% MACE over next 6 weeks - Admit for Clinical Observation Score 7 - 10: 72.7% MACE over next 6 weeks - Early Invasive Strategies Allergies: Allergies: Allergies Coded Allergies Type Severity Reaction Last Updated Verified hydrocodone Allergy Unknown 10/26/18 Yes Physical Exam: PE: Gen: NAD. Well nourished. Head: NC/AT. Eyes: No scleral icterus. No conjunctival injection. ENT: MMM. Neck: Supple. CV: RRR. Peripheral pulses intact. Resp: CTAB. Abd: Soft. NT. ND. MSK: No peripheral cyanosis. Mild swelling and tenderness without overlying cellulitic changes or open lesions of the right lateral ankle. DP pulse 2+. Neuro: Awake and alert. Skin. Warm. Dry. Psych: Appropriate mood & affect. EKG: EKG: [] Radiology/Procedures: Radiology/Procedures: Examination: ANKLE RIGHT 3V History: Reason: ankle inversion injury /pain Comparison/Correlation: None Findings: 3 images of the right ankle were provided. Ankle joint mortise is unremarkable. Moderate-sized calcaneal spur is present. Joint spaces are adequate. Mild spurring of the lateral malleolus is present. Soft tissues are unremarkable. Impression: No acute process. Electronically signed by: Jose Martin Daley MD (02/29/2020 2:07 PM) [email or web address] Course & Med Decision Making: Course & Med Decision Making Pertinent Labs and Imaging studies reviewed. (See chart for details) In summary, 40-year-old female who presents for evaluation of inversion injury of the right ankle, as well as direct injury of the same ankle earlier today. Still ambulatory, though with antalgia. Neurovascularly intact. Plain film shows no acute osseous abnormality. She remains well-appearing nontoxic. She will discharged home with outpatient Ortho follow-up if symptoms persist. Return precautions given. Dragon Disclaimer: Dragon Disclaimer: This electronic medical record was generated, in whole or in part, using a voice recognition dictation system. Departure Departure: Impression: Primary Impression: Sprained ankle Disposition: HOME/RESIDENCE PRIOR TO ADM Condition: STABLE Referrals: JAKUB SANTIAGO (PCP) BALDO MORENO MD Patient Instructions: Ankle Sprain, [id number] Additional Instructions: Follow-up with Dr. Moreno (orthopedics) if you have continued pain after 3-5 days. Your X-ray was negative for fracture. Take tylenol 650 mg every 6 hours or motrin/ibuprofen 600 mg every 8 hours as needed for pain. Justification of Admission: Justification of Admission: Justification of Admission Dx: N/A JOHN MARTINEZ DO Feb 29, 2020 13:51
--- NOTE | 2020-02-29 14:10 | RAD ---
Examination: ANKLE RIGHT 3V History: Reason: ankle inversion injury /pain Comparison/Correlation: None Findings: 3 images of the right ankle were provided. Ankle joint mortise is unremarkable. Moderate-sized calcaneal spur is present. Joint spaces are adequate. Mild spurring of the lateral malleolus is present. Soft tissues are unremarkable. Impression: No acute process. Electronically signed by: Jose Martin Daley MD (02/29/2020 2:07 PM) [id number]
== END 2020-02-29 14:27 | disposition home or self-care (01) ==
LOC: ER 13:37
DX: S93.401A Sprain of unspecified ligament of right ankle, initial encounter (principal); I10 Essential (primary) hypertension; F17.210 Nicotine dependence, cigarettes, uncomplicated; Z88.5 Allergy status to narcotic agent; W22.01XA Walked into wall, initial encounter; Y93.89 Activity, other specified; Y92.89 Other specified places as the place of occurrence of the external cause; Y99.8 Other external cause status
CPT/HCPCS: 73610; 99283

== ENCOUNTER 2020-04-22 16:16 | Emergency (ER) | payer OTHER ==
[~2020-04-22] VITALS: Ht 175.3 cm; Wt 100.0 kg
[2020-04-22 16:16] VITALS: BP 191/74
[~2020-04-22 16:16] MED LIST changes: -PANT40TA5 PO; +PANT40TA6 PO
--- NOTE | 2020-04-22 17:04 | PHYS DOC ---
Past History Past Medical History: Anxiety, Bipolar, Depression, Hypertension Additional Past Medical Histor: Lupus Past Surgical History: Cholecystectomy, Smoking: Cigarettes, Greater than 1 pack/day Alcohol Use: None Drug Use: None Adult General Chief Complaint Chief Complaint: LOWEREXTREMITY INJURY [facility] HPI Patient is a 40-year-old female who presents with right foot pain. Patient reports doing yard work just prior to arrival when dropped break on top of right foot. Patient reports focal pain over the third through fifth metatarsals and base of fifth metatarsal. She has been ambulatory with pain since onset and is here for concern of potential fracture Review of Systems Review of Systems Fourteen body systems of review of systems have been reviewed. See HPI for pertinent positives and negative responses, other faey all other systems are negative, non-pertinent or non-contributory Allergies Allergies Allergies Coded Allergies Type Severity Reaction Last Updated Verified hydrocodone Allergy Unknown 04/22/20 Yes Physical Exam Physical Exam Constitutional: Well developed, well nourished, no acute distress, non-toxic appearance. HENT: Normocephalic, atraumatic, bilateral external ears normal, oropharynx moist, no oral exudates, nose normal. Eyes: PERRLA, EOMI, conjunctiva normal, no discharge. Neck: Normal range of motion, no tenderness, supple, no stridor. Cardiovascular: Heart rate regular, sinus rhythm, no murmurs rubs or gallops Lungs & Thorax: Bilateral breath sounds clear to auscultation Abdomen: Bowel sounds normal, soft, no tenderness, no masses, no pulsatile masses. Nonsurgical abdomen, no peritoneal signs Skin: Warm, dry, no erythema, no rash. Back: No tenderness, no CVA tenderness. Extremities: No cyanosis, no clubbing, ROM intact, no edema. No tenderness of bilateral malleoli of right foot, no navicular tenderness, point tenderness of base of fifth metatarsal, no palpable abnormalities of third through fifth metatarsal at site where brick fell and hit her but patient voices tenderness with palpation throughout Neurologic: Alert and oriented X 3, grossly normal motor & sensory function, no focal deficits noted. Psychologic: Affect normal, judgement normal, mood normal. Current Patient Data Vital Signs Vital Signs Date Time Temp Pulse Resp B/P (MAP) Pulse Ox O2 Delivery O2 Flow Rate FiO2 04/22/20 16:16 98.0 87 16 191/74 (113) 98 Room Air EKG EKG [] Radiology/Procedures Radiology/Procedures PROCEDURE: FOOT RIGHT 3V Exam: Right foot 3 views INDICATION: Base of third and fifth metatarsal pain TECHNIQUE: Frontal, lateral and oblique views of the right foot Comparisons: None FINDINGS: Bone mineralization is normal. No acute or healed fractures. Soft tissues are unremarkable. Joint spaces are well-maintained. IMPRESSION: No acute osseous abnormality. Electronically signed by: Elvis Dawn MD (04/22/2020 5:22 PM) [id number] Course & Med Decision Making Course & Med Decision Making Ambulatory patient seen on immediate ER arrival ABCs non-concerning Comprehensive history and physical exam obtained, due to mechanism of injury, joint decision to pursue radiographs of right foot to exclud potential fracture of base of fifth metatarsal, this was ultimately negative I discussed most likely diagnosis of contusion of the foot and role of continued supportive care consisting of Tylenol and NSAIDs for PRN pain control in addition to icing, compressing, and elevation. Patient has PCP in local area and can be seen in outpatient setting in upcoming 1 to 10 days, I feel this is appropriate Strict return precautions were discussed with good understanding by patient, all questions and concerns addressed prior to ER departure in stable condition Dragon Disclaimer Dragon Disclaimer This electronic medical record was generated, in whole or in part, using a voice recognition dictation system. Departure Departure: Impression: Primary Impression: Contusion of right foot Disposition: 01 HOME/RESIDENCE PRIOR TO ADM Condition: STABLE Referrals: JAKUB SANTIAGO (PCP) Patient Instructions: Foot Contusion, RICE - Routine Care for Injuries Justification of Admission: Justification of Admission: Justification of Admission Dx: N/A MAGNOLIA GONZALEZ DO Apr 22, 2020 17:04
--- NOTE | 2020-04-22 17:24 | RAD ---
Exam: Right foot 3 views INDICATION: Base of third and fifth metatarsal pain TECHNIQUE: Frontal, lateral and oblique views of the right foot Comparisons: None FINDINGS: Bone mineralization is normal. No acute or healed fractures. Soft tissues are unremarkable. Joint spaces are well-maintained. IMPRESSION: No acute osseous abnormality. Electronically signed by: Elvis Dawn MD (04/22/2020 5:22 PM) [id number]
== END 2020-04-22 17:45 | disposition home or self-care (01) ==
LOC: ER 16:16
DX: S90.31XA Contusion of right foot, initial encounter (principal); F17.210 Nicotine dependence, cigarettes, uncomplicated; I10 Essential (primary) hypertension; F41.9 Anxiety disorder, unspecified; F31.9 Bipolar disorder, unspecified; Z88.5 Allergy status to narcotic agent; W20.8XXA Other cause of strike by thrown, projected or falling object, initial encounter; Y93.89 Activity, other specified; Y92.096 Garden or yard of other non-institutional residence as the place of occurrence of the external cause; Y99.8 Other external cause status
CPT/HCPCS: 73630; 99283

== ENCOUNTER 2020-06-06 18:33 | Emergency (ER) | payer OTHER ==
[~2020-06-06] VITALS: Ht 175.3 cm; Wt 110.0 kg
--- NOTE | 2020-06-06 18:54 | PHYS DOC ---
Past History Past Medical History: Anxiety, Bipolar, Depression, Hypertension Additional Past Medical Histor: Lupus Past Surgical History: Cholecystectomy, Smoking: Cigarettes, Greater than 1 pack/day Alcohol Use: None Drug Use: None Adult General HPI HPI Patient is a 40-year-old female patient with history of hypertension, anxiety, depression, current smoker, clotting disorder on aspirin 81 mg who presents to the ED today complaining of 8 out of 10 sharp intermittent right calf pain that has been going on for 3 weeks. Patient denies any injury. States she occ asionally has loss of sensation to the right great toe. States the pain is worse when she is ambulating she states she called the doctor's office and they asked her to come to the ED for venous Doppler of the right lower extremity to rule out DVT. Review of Systems Review of Systems Constitutional: Denies fever or chills [] Eyes: Denies change in visual acuity, redness, or eye pain [] HENT: Denies nasal congestion or sore throat [] Respiratory: Denies cough or shortness of breath [] Cardiovascular: No additional information not addressed in HPI [] GI: Denies abdominal pain, nausea, vomiting, bloody stools or diarrhea [] : Denies dysuria or hematuria [] Musculoskeletal: Reports right lower extremity pain denies back pain or joint pain [] Integument: Denies rash or skin lesions [] Neurologic: Denies headache, focal weakness or sensory changes [] All other systems were reviewed and found to be within normal limits, except as documented in this note. Allergies Allergies Allergies Coded Allergies Type Severity Reaction Last Updated Verified hydrocodone Allergy Unknown 04/22/20 Yes Physical Exam Physical Exam Constitutional: Well developed, well nourished, no acute distress, non-toxic appearance. [] HENT: Normocephalic, atraumatic, bilateral external ears normal, oropharynx moist, no oral exudates, nose normal. [] Eyes: PERRLA, EOMI, conjunctiva normal, no discharge. [] Neck: Normal range of motion, no tenderness, supple, no stridor. [] Cardiovascular:Heart rate regular rhythm, no murmur [] Lungs & Thorax: Bilateral breath sounds clear to auscultation [] Abdomen: Bowel sounds normal, soft, no tenderness, no masses, no pulsatile masses. [] Skin: Warm, dry, no erythema, no rash. [] Back: No tenderness, no CVA tenderness. [] Extremities: No tenderness, no cyanosis, no clubbing, ROM intact, no edema. [] Neurologic: Alert and oriented X 3, normal motor function, normal sensory function, no focal deficits noted. Bilateral calves are normal and same in size. Positive Homans' sign to the right lower extremity. +2 right pedal pulse. Cap refill less than 2 seconds the right toes. Psychologic: Affect normal, judgement normal, mood normal. [] EKG EKG [] Radiology/Procedures Radiology/Procedures []PROCEDURE: VENOUS LOWER EXTREMITY RIGHT STUDY: US VENOUS LOWER EXTREMITY RIGHT INDICATION: Calf pain. DVT. TECHNIQUE: Color-flow and pulsed wave duplex ultrasound with compression of venous structures of the right lower extremity. COMPARISON: 11/13/2019. FINDINGS: Duplex ultrasound with compression of the deep venous structures of the right lower extremity from the common femoral vein through the popliteal vein is negative for DVT. The posterior tibial and peroneal veins are segmentally visualized and patent where seen. Normal venous waveforms and augmentation are noted throughout. IMPRESSION: No deep venous thrombosis seen throughout the right lower extremity. Electronically signed by: MOISÉS VILLALOBOS MD (06/06/2020 8:04 PM) [id number] DICTATED AND SIGNED BY: MOISÉS VILLALOBOS MD DATE: 06/06/202003 CC: JAKUB SANTIAGO; CLARISSA JUAREZ APRN ~ Heart Score Risk Factors: Risk Factors: DM, Current or recent (<one month) smoker, HTN, HLP, family history of CAD, obesity. Risk Scores: Risk Factors: DM, Current or recent (<one month) smoker, HTN, HLP, family history of CAD, obesity. Course & Med Decision Making Course & Med Decision Making Pertinent Labs and Imaging studies reviewed. (See chart for details) This is a 40-year-old female patient with a history of clotting disorder currently on aspirin 81 mg presenting to the ED today with a right calf pain for 3 weeks. Venous Doppler of the right lower extremity was negative for any acute findings. Discharge to home. Follow-up with PCP in 1 to 2 weeks. Encouraged to consider smoking cessation. Dragon Disclaimer Dragon Disclaimer This electronic medical record was generated, in whole or in part, using a voice recognition dictation system. Departure Departure: Impression: Primary Impression: Right leg pain Additional Impression: Smoking addiction Disposition: 01 DC HOME SELF CARE/HOMELESS Condition: STABLE Referrals: JAKUB SANTIAGO (PCP) Follow-up in 1 week Patient Instructions: Musculoskeletal Pain, Smoking Cessation Additional Instructions: Your ultrasound of the right lower extremity was negative for blood clot. Consider smoking cessation. Follow-up with your doctor in the next 1 to 2 weeks. Consider smoking cessation Problem Qualifiers CLARISSA JUAREZ HEEL TURNER Jun 06, 2020 18:54
--- NOTE | 2020-06-06 20:07 | RAD ---
STUDY: US VENOUS LOWER EXTREMITY RIGHT INDICATION: Calf pain. DVT. TECHNIQUE: Color-flow and pulsed wave duplex ultrasound with compression of venous structures of the right lower extremity. COMPARISON: 11/13/2019. FINDINGS: Duplex ultrasound with compression of the deep venous structures of the right lower extremity from the common femoral vein through the popliteal vein is negative for DVT. The posterior tibial and peroneal veins are segmentally visualized and patent where seen. Normal venous waveforms and augmentation are noted throughout. IMPRESSION: No deep venous thrombosis seen throughout the right lower extremity. Electronically signed by: MOISÉS VILLALOBOS MD (06/06/2020 8:04 PM) [id number]
[2020-06-06 20:35] VITALS: BP 120/77
== END 2020-06-06 20:37 | disposition home or self-care (01) ==
LOC: ER 18:33
DX: M79.604 Pain in right leg (principal); F17.210 Nicotine dependence, cigarettes, uncomplicated; I10 Essential (primary) hypertension; F41.9 Anxiety disorder, unspecified; F31.9 Bipolar disorder, unspecified; Z79.82 Long term (current) use of aspirin; Z88.5 Allergy status to narcotic agent
CPT/HCPCS: 93971; 99284-25

== ENCOUNTER 2020-06-28 18:04 | Emergency (ER) | payer OTHER ==
[~2020-06-28] VITALS: Ht 175.3 cm; Wt 110.0 kg
--- NOTE | 2020-06-28 18:39 | PHYS DOC ---
Past History Past Medical History: COPD, Hypertension, Migraines, Other Additional Past Medical Histor: lupus Past Surgical History: Cholecystectomy, , Hysterectomy Smoking: Cigarettes, Greater than 1 pack/day Alcohol Use: None Drug Use: None Adult General Chief Complaint Chief Complaint: MECHANICAL FALL [facility] HPI Patient is a 40-year-old female who presents for mechanical fall. Patient reports ambulating to her car and stepping in a pothole. Patient stepped in pothole with her right foot suffering an inversion type injury, fell to her right and then subsequent left knees and then landed on her right outstretched hand. She did not hit her head, no loss of consciousness, is on an aspirin but no other blood thinners at this time. Patient reports right lateral ankle pain and has had difficulty ambulating since fall. She is also complaining of pain to right hyperthenar eminence Review of Systems Review of Systems Fourteen body systems of review of systems have been reviewed. See HPI for pertinent positives and negative responses, other faye all other systems are negative, non-pertinent or non-contributory Allergies Allergies Allergies Coded Allergies Type Severity Reaction Last Updated Verified gabapentin Allergy Unknown 06/06/20 Yes hydrocodone Allergy Unknown 04/22/20 Yes latex Allergy Unknown 06/06/20 Yes Physical Exam Physical Exam Constitutional: Well developed, well nourished, no acute distress, non-toxic appearance. HENT: Normocephalic, atraumatic, bilateral external ears normal, oropharynx moist, no oral exudates, nose normal. Eyes: PERRLA, EOMI, conjunctiva normal, no discharge. Neck: Normal range of motion, no tenderness, supple, no stridor. Cardiovascular: Heart rate regular, sinus rhythm, no murmurs rubs or gallops Lungs & Thorax: Bilateral breath sounds clear to auscultation Abdomen: Bowel sounds normal, soft, no tenderness, no masses, no pulsatile masses. Nonsurgical abdomen, no peritoneal signs Skin: Warm, dry, no erythema, no rash. Back: No tenderness, no CVA tenderness. Extremities: No cyanosis, no clubbing, no edema. Pulses 2+ intact in bilateral upper and lower extremities. No anatomical snuffbox tenderness bilaterally, tenderness to palpation of right hyperthenar eminence without any other notable visual and/or palpable abnormalities, radial ulnar and median nerve function intact of bilateral upper extremities. [place] ankle rule positive, tenderness to palpation around right lateral malleolus region without any other concerning findings or visual and/or palpable abnormalities. Range of motion diminished in all planes due to pain, no visible ecchymosis and/or edema Neurologic: Alert and oriented X 3, grossly normal motor & sensory function, no focal deficits noted. Psychologic: Affect normal, judgement normal, mood normal. Current Patient Data Vital Signs Vital Signs Date Time Temp Pulse Resp B/P (MAP) Pulse Ox O2 Delivery O2 Flow Rate FiO2 06/28/20 18:26 97.8 70 16 95 EKG EKG [] Radiology/Procedures Radiology/Procedures PROCEDURE: WRIST 3V RIGHT Examination: WRIST 3V RIGHT History: Reason: FOOSH / Comparison/Correlation: None Findings: 3 view right wrist x-rays and was performed. Joint spaces are normal. No fracture or bone structure. Soft tissues are unremarkable no degenerative change. Impression: Normal right wrist x-ray exam. Further evaluation is recommended if occult process is a persistent concern. Electronically signed by: Jose Martin Daley MD (06/28/2020 7:13 PM) [facility] PROCEDURE: ANKLE RIGHT 3V Exam: Right ankle 3 views INDICATION: Inversion ankle injury TECHNIQUE: Frontal, lateral and oblique views of the right ankle Comparisons: None FINDINGS: Bone mineralization is normal. No acute or healed fractures. Soft tissues are unremarkable. Joint spaces are well-maintained. IMPRESSION: No acute osseous abnormality. Electronically signed by: Elvis Dawn MD (06/28/2020 7:12 PM) [facility] Heart Score Risk Factors: Risk Factors: DM, Current or recent (<one month) smoker, HTN, HLP, family history of CAD, obesity. Risk Scores: Risk Factors: DM, Current or recent (<one month) smoker, HTN, HLP, family history of CAD, obesity. Course & Med Decision Making Course & Med Decision Making Given history, exam, and workup, low suspicion for ICH, skull fx, spine fx or other acute spinal syndrome, PTX, pulmonary contusion, cardiac contusion, aortic/vertebral dissection, significant hemorrhage, extremity fracture. Discussed most likely diagnosis of right ankle sprain and right hand contusion status post mechanical fall Disposition: Discharge home with strict return precautions and instructions for prompt primary care follow up. Dragon Disclaimer Dragon Disclaimer This electronic medical record was generated, in whole or in part, using a voice recognition dictation system. Departure Departure: Impression: Primary Impression: Fall Additional Impressions: Inversion sprain of right ankle Contusion of right hand Disposition: 01 DC HOME SELF CARE/HOMELESS Condition: STABLE Referrals: JAKUB SANTIAGO (PCP) Patient Instructions: Contusion, Fall Prevention and Home Safety Additional Instructions: You were evaluated in the Emergency Department today for a mechanical fall. Your evaluation suggests no acute abnormalities which require further intervention at this time. - Move around as tolerated but avoiding heavy lifting. ``Bed rest is not recommended nor is it the best treatment for low back pain. - Medications will help control your discomfort: - Tylenol - Do not drink alcohol, drive a car, operate machinery, or get up on ladders or heights when taking any prescribed pain medications. - Do not drive home if you received prescribed pain medications here in the ED. Return to the ED immediately if you develop any of the following problems: - Leaking urine or difficulty urinating; - Inability to control your bowels; - New numbness or weakness in your legs or numbness between your legs; - Inability to walk - Fever Problem Qualifiers MAGNOLIA GONZALEZ DO Jun 28, 2020 18:39
[2020-06-28] MEDS ORDERED: ACETAMINOPHEN 325 MG TABLET PO ONE (18:45)
--- NOTE | 2020-06-28 19:15 | RAD ---
Exam: Right ankle 3 views INDICATION: Inversion ankle injury TECHNIQUE: Frontal, lateral and oblique views of the right ankle Comparisons: None FINDINGS: Bone mineralization is normal. No acute or healed fractures. Soft tissues are unremarkable. Joint spaces are well-maintained. IMPRESSION: No acute osseous abnormality. Electronically signed by: Elvis Dawn MD (06/28/2020 7:12 PM) [facility]
--- NOTE | 2020-06-28 19:16 | RAD ---
Examination: WRIST 3V RIGHT History: Reason: FOOSH / Comparison/Correlation: None Findings: 3 view right wrist x-rays and was performed. Joint spaces are normal. No fracture or bone structure. Soft tissues are unremarkable no degenerative change. Impression: Normal right wrist x-ray exam. Further evaluation is recommended if occult process is a persistent concern. Electronically signed by: Jose Martin Daley MD (06/28/2020 7:13 PM) [facility]
== END 2020-06-28 19:25 | disposition home or self-care (01) ==
LOC: ER 18:04
DX: S93.401A Sprain of unspecified ligament of right ankle, initial encounter (principal); S60.221A Contusion of right hand, initial encounter; J44.9 Chronic obstructive pulmonary disease, unspecified; I10 Essential (primary) hypertension; G43.909 Migraine, unspecified, not intractable, without status migrainosus; F17.210 Nicotine dependence, cigarettes, uncomplicated; Z88.8 Allergy status to other drugs, medicaments and biological substances; Z88.5 Allergy status to narcotic agent; Z91.040 Latex allergy status; W18.39XA Other fall on same level, initial encounter; Y93.89 Activity, other specified; Y92.89 Other specified places as the place of occurrence of the external cause; Y99.8 Other external cause status
CPT/HCPCS: 73110; 73610; 99284

== ENCOUNTER 2020-07-28 13:02 | Emergency (ER) | payer OTHER ==
[~2020-07-28] VITALS: Ht 175.3 cm; Wt 110.0 kg
[2020-07-28 13:03] VITALS: BP 142/95
--- NOTE | 2020-07-28 14:10 | PHYS DOC ---
Past History Past Medical History: Arthritis, COPD, Hypertension Additional Past Medical Histor: lupus Past Surgical History: Cholecystectomy, Smoking: Cigarettes, Greater than 1 pack/day Alcohol Use: None Drug Use: None General Adult EDM: Chief Complaint: KNEE INJURY HPI: HPI: Patient is a 1-year-old female who presents with left knee pain patient states that she tried to climb over her son's baby gate, when her leg got stuck and hyperextended. Denies dislocation. She has been taking Tylenol for the pain with little relief. States that the pain was worse today and has swelling to her knee. Review of Systems: Review of Systems: Constitutional: Denies fever or chills Eyes: Denies change in visual acuity HENT: Denies nasal congestion or sore throat Respiratory: Denies cough or shortness of breath Cardiovascular: Denies chest pain or edema GI: Denies abdominal pain, nausea, vomiting, bloody stools or diarrhea : Denies dysuria Musculoskeletal: Denies back pain or joint pain. Pain and swelling to left knee, denies dislocation but slight hyperextension. Integument: Denies rash Neurologic: Denies headache, focal weakness or sensory changes Endocrine: Denies polyuria or polydipsia Lymphatic: Denies swollen glands Psychiatric: Denies depression or anxiety Allergies: Allergies: Allergies Coded Allergies Type Severity Reaction Last Updated Verified gabapentin Allergy Unknown 06/06/20 Yes hydrocodone Allergy Unknown 04/22/20 Yes latex Allergy Unknown 06/06/20 Yes Physical Exam: PE: Constitutional: Well developed, well nourished, no acute distress, non-toxic appearance. [] HENT: Normocephalic, atraumatic, bilateral external ears normal, oropharynx moist, no oral exudates, nose normal. [] Eyes: PERRLA, EOMI, conjunctiva normal, no discharge. [] Neck: Normal range of motion, no tenderness, supple, no stridor. [] Cardiovascular:Heart rate regular rhythm, no murmur [] Lungs & Thorax: Bilateral breath sounds clear to auscultation [] Abdomen: Bowel sounds normal, soft, no tenderness, no masses, no pulsatile masses. [] Skin: Warm, dry, no erythema, no rash. [] Back: No tenderness, no CVA tenderness. [] Extremities: left knee pain and swelling,patella tenderness, pedal pulses intact, no cyanosis, no clubbing, warm to the touch. [] Neurologic: Alert and oriented X 3, normal motor function, normal sensory function, no focal deficits noted. [] Psychologic: Affect normal, judgement normal, mood normal. [] EKG: EKG: [] Radiology/Procedures: Radiology/Procedures: []Three-view left knee study Clinical indications: Injury from a fall today. Left knee pain. FINDINGS: No acute fracture or dislocation or lytic process is seen. No significant left knee joint effusion is seen. No significant arthritic change is seen. IMPRESSION: No acute osseous abnormality. Electronically signed by: Florian Dow MD (07/28/2020 3:32 PM) [id number] Heart Score: Risk Factors: Risk Factors: DM, Current or recent (<one month) smoker, HTN, HLP, family history of CAD, obesity. Risk Scores: Score 0 - 3: 2.5% MACE over next 6 weeks - Discharge Home Score 4 - 6: 20.3% MACE over next 6 weeks - Admit for Clinical Observation Score 7 - 10: 72.7% MACE over next 6 weeks - Early Invasive Strategies Course & Med Decision Making: Course & Med Decision Making Pertinent Labs and Imaging studies reviewed. (See chart for details) []Knee xray ordered to rule out fracture. Patient unable to flex knee. Patella tenderness. Hydrocodone ordered for pain. Patient denies allergy to medication,only nausea. Knee Xray showed No acute osseous abnormality. Farncisco Wrap ordered. Patient states she has knee brace at home. RICE. Follow up with PCP if needed. Lakshmi Disclaimer: Lakshmi Disclaimer: This electronic medical record was generated, in whole or in part, using a voice recognition dictation system. Departure Departure: Impression: Primary Impression: Knee sprain Qualified Codes: S83.502A - Sprain of unspecified cruciate ligament of left knee, initial encounter Disposition: 01 DC HOME SELF CARE/HOMELESS Condition: GOOD Referrals: JAKUB SANTIAGO (PCP) Patient Instructions: Knee Pain, [id number] Additional Instructions: EMERGENCY DEPARTMENT GENERAL DISCHARGE INSTRUCTIONS Thank you for coming to [facility] (ED) today and trusting us with you care. We trust that you had a positivie experience in our Emergency Department. If you wish to speak to the department management, you may call the director at [phone]. YOUR FOLLOW UP INSTRUCTIONS ARE FOLLOWS: 1. Do you have a private Doctor? If you do not have a private doctor, please ask for a resource list of physicians or clinics that may be able to assist you with follow up care. 2. The Emergency Physician has interpreted your x-rays. The X-Ray specialist will also review them. If there is a change in the findings, you will be notified in 48 hours when at all possible. 3. A lab test or culture has been done, your results will be reviewed and you will be notified if you need a change in treatment. ADDITIONAL INSTRUCTIONS AND INFORMATION: 1. Your care today has been supervised by a physician who is specially trained in emergency care. Many problems require more than one evaluation for a complete diagnosis and treatment. We recommend that you schedule your follow up appointment as recommended to ensure complete treatment of you illness or injury. If you are unable to obtain follow up care and continue to have a problem, or if your condition worsens, we recommend that you return to the ED. 2. We are not able to safely determine your condition over the phone nor are we able to give sound medical advice over the phone. For these safety reasons, if you call for medical advice we will ask you to come to the ED for further evaluation. 3. If you have any questions regarding these discharge instructions please call the ED at [phone]. SAFETY INFORMATION: In the interest of safety, wellness, and injury prevention; we encourage you to wear your sealbelt, if you smoke; quite smoking, and we encourage family to use a prote ctive helmet for bicycling and other sporting events that present an increased risk for head injury. IF YOUR SYMPTOMS WORSEN OR NEW SYMPTOMS DEVELOP, OR YOU HAVE CONCERNS ABOUT YOUR CONDITION; OR IF YOUR CONDITION WORSENS WHILE YOU ARE WAITING FOR YOUR FOLLOW UP APPOINTMENT; EITHER CONTACT YOUR PRIMARY CARE DOCTOR, THE PHYSICIAN WHOSE NAME AND NUMBER YOU WERE GIVEN, OR RETURN TO THE ED IMMEDIATELY. AZIZA RAZO APRN Jul 28, 2020 14:10
[2020-07-28] MEDS ORDERED: ONDANSETRON ODT 4 MG TAB.RAPDIS PO ONE (14:30)
[2020-07-28] MEDS ORDERED: HYDROcodone/APAP 5/325MG 1 TAB TABLET PO ONE (14:30)
--- NOTE | 2020-07-28 15:35 | RAD ---
Three-view left knee study Clinical indications: Injury from a fall today. Left knee pain. FINDINGS: No acute fracture or dislocation or lytic process is seen. No significant left knee joint e ffusion is seen. No significant arthritic change is seen. IMPRESSION: No acute osseous abnormality. Electronically signed by: Florian Dow MD (07/28/2020 3:32 PM) [id number]
== END 2020-07-28 16:05 | disposition home or self-care (01) ==
LOC: ER 13:02
DX: S83.8X2A Sprain of other specified parts of left knee, initial encounter (principal); R60.0 Localized edema; M19.90 Unspecified osteoarthritis, unspecified site; J44.9 Chronic obstructive pulmonary disease, unspecified; I10 Essential (primary) hypertension; F17.210 Nicotine dependence, cigarettes, uncomplicated; Z90.49 Acquired absence of other specified parts of digestive tract; Z98.890 Other specified postprocedural states; Z88.5 Allergy status to narcotic agent; Z91.040 Latex allergy status; Z88.8 Allergy status to other drugs, medicaments and biological substances; W22.8XXA Striking against or struck by other objects, initial encounter; Y93.89 Activity, other specified; Y92.89 Other specified places as the place of occurrence of the external cause; Y99.8 Other external cause status
CPT/HCPCS: 73562; 99283; Q0162

== ENCOUNTER → 2020-09-25 | Outpatient (CLI) | payer OTHER ==
[~2020-09-25] MED LIST changes: -CIPR500T PO; +CIPR500T2 PO
[2020-09-26 03:42] LABS: BASO # 0.1 x10^3/uL (0.0-0.2); BASO % 1 % (0-3); EOS # 0.2 x10^3/uL (0.0-0.7); EOS % 2 % (0-3); HEMATOCRIT 45.2 % (36.0-47.0); HEMOGLOBIN 14.9 g/dL (12.0-15.5); LYMPH # 2.6 x10^3/uL (1.0-4.8); LYMPH % 33 % (24-48); MEAN CORPUSCULAR HEMOGLOBIN 30 pg (25-35); MEAN CORPUSCULAR HGB CONC 33 g/dL (31-37); MEAN CORPUSCULAR VOLUME 91 fL (79-100); MONO # 0.5 x10^3/uL (0.0-1.1); MONO % 7 % (0-9); NEUT # 4.4 x10^3uL (1.8-7.7); NEUT % 57 % (31-73); PLATELET COUNT 258 x10^3/uL (140-400); RED BLOOD COUNT 4.95 x10^6/uL (3.50-5.40); RED CELL DISTRIBUTION WIDTH 13.5 % (11.5-14.5); WHITE BLOOD COUNT 7.8 x10^3/uL (4.0-11.0)
[2020-09-26 04:37] LABS: ALBUMIN 3.7 g/dL (3.4-5.0); ALBUMIN/GLOBULIN RATIO 0.9 (1.0-1.7); CALCIUM 8.4 mg/dL (8.5-10.1); CREATININE 0.8 mg/dL (0.6-1.0); POTASSIUM 3.9 mmol/L (3.5-5.1); TOTAL BILIRUBIN 0.6 mg/dL (0.2-1.0); TOTAL PROTEIN 7.9 g/dL (6.4-8.2)
[2020-09-26 15:13] LABS: C3 COMPLEMENT 128 mg/dL (82-167); C4 COMPLEMENT 15 mg/dL (12-38)
[2020-09-26 15:16] LABS: CREATININE,RANDOM URINE 50.3 mg/dL (Not Establ.)
[2020-09-28 10:12] LABS: ANTI-DS DNA 33 IU/mL (0-9)
== END ==
LOC: LAB 13:44
PROVIDERS: ATTEND Internal Medicine Rheumatology
DX: M32.10 Systemic lupus erythematosus, organ or system involvement unspecified (principal); Z79.899 Other long term (current) drug therapy
CPT/HCPCS: 36415; 80053; 82570; 84156; 85025; 86160; 86255

== ENCOUNTER 2020-11-26 14:29 | Emergency (ER) | payer OTHER ==
[~2020-11-26] VITALS: Ht 175.3 cm; Wt 110.0 kg
[2020-11-26 14:34] VITALS: BP 139/88
--- NOTE | 2020-11-26 14:48 | PHYS DOC ---
Past History Past Medical History: Arthritis, COPD, Hypertension Additional Past Medical Histor: lupus, "clotting disorder" Past Surgical History: Cholecystectomy, Smoking: Cigarettes, Greater than 1 pack/day Alcohol Use: None Drug Use: None General Adult EDM: Chief Complaint: LOWER EXTREMITY SWELLING HPI: HPI: 40-year-old female presents with 2-day history of left lower leg swelling. She has had some intermittent lower extremity swelling and was placed on a water pill recently. Over the last couple of days, the patient has noticed that the left calf is more firm and it seems to be more swollen than the right. Today, the pain has increased as well as the swelling. Patient has a clotting disorder and has never had a DVT, but is concerned about DVT. No recent long car rides. No history of trauma or falls. Denies platelets or anticoagulants. She denies cough or shortness of breath. Denies fever or chills. Review of Systems: Review of Systems: Constitutional: Denies fever or chills Eyes: Denies change in visual acuity HENT: Denies nasal congestion or sore throat Respiratory: Denies cough or shortness of breath Cardiovascular: Denies chest pain or edema GI: Denies abdominal pain, nausea, vomiting, bloody stools or diarrhea : Denies dysuria Musculoskeletal: Left lower leg swelling Integument: Denies rash Neurologic: Denies headache, focal weakness or sensory changes Endocrine: Denies polyuria or polydipsia Lymphatic: Denies swollen glands Psychiatric: Denies depression or anxiety Allergies: Allergies: Allergies Coded Allergies Type Severity Reaction Last Updated Verified gabapentin Allergy Unknown 06/06/20 Yes hydrocodone Allergy Unknown 04/22/20 Yes latex Allergy Unknown 06/06/20 Yes Physical Exam: PE: Constitutional: Well developed, well nourished, obese, no acute distress, non- toxic appearance. [] HENT: Normocephalic, atraumatic, bilateral external ears normal, oropharynx moist, no oral exudates, nose normal. [] Eyes: PERRLA, EOMI, conjunctiva normal, no discharge. [] Neck: Normal range of motion, no tenderness, supple, no stridor. [] Cardiovascular: Heart rate regular rhythm, no murmur [] Lungs & Thorax: Bilateral breath sounds clear to auscultation [] Abdomen: Bowel sounds normal, soft, no tenderness, no masses, no pulsatile masses. [] Skin: Warm, dry, no erythema, no rash. [] Back: No tenderness, no CVA tenderness. [] Extremities: Left calf swelling greater than right. Tenderness of the left calf to palpation. [] Neurologic: Alert and oriented X 3, normal motor function, normal sensory function, no focal deficits noted. [] Psychologic: Affect normal, judgement normal, mood normal. [] Current Patient Data: Vital Signs: Vital Signs Date Time Temp Pulse Resp B/P (MAP) Pulse Ox O2 Delivery O2 Flow Rate FiO2 11/26/20 14:34 98.3 103 18 139/88 (105) 97 EKG: EKG: [] Radiology/Procedures: Radiology/Procedures: [] Impressions: EXAM: Left lower extremity venous Doppler sonogram. HISTORY: Pain and swelling. TECHNIQUE: Blackburn scale and color Doppler sonographic evaluation of the left lower extremity veins with spectral waveform analysis was performed. FINDINGS: There is normal color flow, normal compressibility and there are normal spectral waveforms in the common femoral, superficial femoral, popliteal, posterior tibial and greater saphenous veins. IMPRESSION: No Doppler evidence of lower extremity deep venous thrombosis. Electronically signed by: Trudy Cain MD (11/26/2020 3:25 PM) [id number] DICTATED AND SIGNED BY: TRUDY CAIN MD DATE: 11/26/20 1525 CC: SIGRID OVIEDO DO; JKAUB SANTIAGO NM ~MTH0 0 Heart Score: C/O Chest Pain: No Risk Factors: Risk Factors: DM, Current or recent (<one month) smoker, HTN, HLP, family hi story of CAD, obesity. Risk Scores: Score 0 - 3: 2.5% MACE over next 6 weeks - Discharge Home Score 4 - 6: 20.3% MACE over next 6 weeks - Admit for Clinical Observation Score 7 - 10: 72.7% MACE over next 6 weeks - Early Invasive Strategies Course & Med Decision Making: Course & Med Decision Making Pertinent Labs and Imaging studies reviewed. (See chart for details) The patient's ultrasound was negative for DVT. She does have asymmetrical swelling between the 2 lower legs. I am not certain what is causing this. She may just have uneven edema or could be related to her other chronic medical conditions. It does not appear to be life-threatening at this time. She is stable for discharge. [] Dragon Disclaimer: Dragon Disclaimer: This electronic medical record was generated, in whole or in part, using a voice recognition dictation system. Departure Departure: Impression: Primary Impression: Pain and swelling of left lower leg Disposition: HOME / SELF CARE / HOMELESS Condition: STABLE Referrals: JAKUB SANTIAGO (PCP) Patient Instructions: Peripheral Edema SIGRID OVIEDO DO Nov 26, 2020 14:48
--- NOTE | 2020-11-26 15:27 | RAD ---
EXAM: Left lower extremity venous Doppler sonogram. HISTORY: Pain and swelling. TECHNIQUE: Blackburn scale and color Doppler sonographic evaluation of the left lower extremity veins with spectral waveform analysis was performed. FINDINGS: There is normal color flow, normal compressibility and there are normal spectral waveforms in the common femoral, superficial femoral, popliteal, posterior tibial and greater saphenous veins. IMPRESSION: No Doppler evidence of lower extremity deep venous thrombosis. Electronically signed by: Trudy Conti MD (11/26/2020 3:25 PM) [id number]
== END 2020-11-26 15:40 | disposition home or self-care (01) ==
LOC: ER 14:29
DX: R22.42 Localized swelling, mass and lump, left lower limb (principal); M79.605 Pain in left leg; J44.9 Chronic obstructive pulmonary disease, unspecified; I10 Essential (primary) hypertension; F17.210 Nicotine dependence, cigarettes, uncomplicated; Z91.040 Latex allergy status; Z88.5 Allergy status to narcotic agent; Z88.8 Allergy status to other drugs, medicaments and biological substances
CPT/HCPCS: 93971; 99284-25

== ENCOUNTER 2020-11-30 19:13 | Emergency (ER) | payer OTHER ==
[~2020-11-30] VITALS: Ht 175.3 cm; Wt 109.4 kg
--- NOTE | 2020-11-30 19:44 | PHYS DOC ---
Past History Past Medical History: Arthritis, COPD, Hypertension Additional Past Medical Histor: lupus, "clotting disorder" (RYAN FAM APRN) Past Surgical History: Cholecystectomy, (RYAN FAM APRN) Smoking: Cigarettes, Greater than 1 pack/day Alcohol Use: Occasionally Drug Use: None (RYAN FAM APRN) Adult General Chief Complaint Chief Complaint: ABDOMINAL PAIN HPI HPI Patient is a 40-year-old female presents to the emergency department complaining of right lower quadrant pain. Patient states that she was seen here a few days ago with the same complaints and nobody would listen to her. Patient states she wants to find out if she has an appendicitis or not. Patient states that approximately 5 days ago she woke up with pain in her umbilical area which radiated to her right lower quadrant. Patient reports her pain a consistent 8/10 with a 10 pain scale. Patient denies eating any new foods or ingesting any new substances. Patient denies any nausea, vomiting, diarrhea, constipation problems. Patient denies any chest pain, shortness of breath, sore throat nasal congestion or chest congestion. Patient denies any rashes to her skin. Patient denies any increased urination, pressure with urination, burning with urination, denies any other urinary tract infection type signs and symptoms. Patient denies any STI concerns, denies vaginal discharge. Patient states she had her gallbladder removed and a hysterectomy 2018. Patient denies any allergies to medications. Patient denies taking any medications for this pain. Patient states she has not had a chance to follow-up with her primary care provider NUNU Shankar. Denies cigarette smoking, denies drinking alcohol, denies illicit drug use. (RYAN FAM APRN) Review of Systems Review of Systems 14 body systems of review of systems have been reviewed. See HPI for pertinent positives and negative responses, otherwise all other systems are negative, nonp ertinent or noncontributory. (RYAN FAM APRN) Allergies Allergies Allergies Coded Allergies Type Severity Reaction Last Updated Verified gabapentin Allergy Unknown 06/06/20 Yes hydrocodone Allergy Unknown 04/22/20 Yes latex Allergy Unknown 06/06/20 Yes (RYAN FAM APRN) Physical Exam Physical Exam Constitutional: Well developed, well nourished, no acute distress, non-toxic appearance. 40-year-old female no apparent distress. HENT: Normocephalic, atraumatic, bilateral external ears normal, oropharynx moist, no oral exudates, nose normal. Oropharynx moist, pink, no deep tissue infectious process appreciated, no drooling, no trismus, no lymphadenopathy of the head or neck appreciated. Eyes: PERRLA, EOMI, conjunctiva normal, no discharge. Neck: Normal range of motion, no tenderness, supple, no stridor. No meningismus signs, no nuchal rigidity. Cardiovascular:Heart rate regular rhythm, no murmur, heart sounds S1-S2 to auscultation. Lungs & Thorax: Bilateral breath sounds clear to auscultation all lung williamson, no adventitious lung sounds appreciated. Abdomen: Bowel sounds normal, soft, no tenderness, no masses, no pulsatile masses. Pain to palpation right lower quadrant, negative McBurney's point tenderness, negative rebound tenderness, no Aguayo sign, no psoas sign appreciated. No pain elicited with palpation around umbilicus. There is no bruising or ecchymotic areas of the abdomen appreciated. No surgical scars appreciated. Skin: Warm, dry, no erythema, no rash. Back: No tenderness, no CVA tenderness. Extremities: No tenderness, no cyanosis, no clubbing, ROM intact, no edema. Neurologic: Alert and oriented X 3, normal motor function, normal sensory function, no focal deficits noted. Psychologic: Affect normal, judgement normal, mood normal. (RYAN FAM APRN) Current Patient Data Vital Signs Vital Signs Date Time Temp Pulse Resp B/P (MAP) Pulse Ox O2 Delivery O2 Flow Rate FiO2 11/30/20 19:32 98.1 111 18 126/86 (99) 96 Room Air (RYAN FAM APRN) EKG EKG [] (RYAN FAM APRN) Radiology/Procedures Radiology/Procedures [] (RYAN FAM APRN) Radiology/Procedures XAM: CT Abdomen and Pelvis with IV contrast CLINICAL HISTORY: RLQ PAIN.HX KAREN,HYSTERECTOMY, COMPARISON: 01/24/2018 TECHNIQUE: Helical CT of the abdomen and pelvis was performed following the administration of intravenous contrast. Axial, coronal and sagittal reformatted images were generated. PQRS compliance statement - One or more of the following individualized dose reduction techniques were utilized for this study: 1. Automated exposure control 2. Adjustment of the mA and/or kV according to patient size 3. Use of iterative reconstruction technique FINDINGS: Lower Chest: Lung bases are clear. Abdomen and Pelvis: Hepatic hypoattenuation, likely fatty liver. Cholecystectomy clips are seen. No biliary ductal dilatation. Pancreas is unremarkable. Spleen is normal in appearance. Indeterminate left adrenal nodule with Hounsfield units measuring 30, new compared to 01/24/2018. Heterogeneous right nephrograms. No focal renal lesion. No hydronephrosis. No hydroureter. Bladder is decompressed. Appendix is normal. Moderate colonic stool content is seen. No small or large bowel dilatation. Relative featureless appearance of the proximal transverse colon may be related to prior colitis/inflammatory bowel disease. Fat-containing lesion right adnexa likely dermoid. There is been a hysterectomy. Left ovary is grossly normal in appearance. Trace fat-containing periumbilical hernia. No aggressive osseous lesion is seen. IMPRESSION: 1. Heterogeneous right nephrograms may be seen with pyelonephritis. 2. Fat-containing lesion right adnexa likely dermoid. 3. Hepatic hypoattenuation, likely fatty liver. 4. Relative featureless appearance of the proximal transverse colon may be related to prior colitis/inflammatory bowel disease. 5. Indeterminate left adrenal nodule, new compared to prior CT 01/24/2018, can be further assessed by multiphase CT or MRI. 6. Appendix is normal. (SHAUN POTTER MD) Heart Score C/O Chest Pain: No Risk Factors: Risk Factors: DM, Current or recent (<one month) smoker, HTN, HLP, family his tory of CAD, obesity. Risk Scores: Risk Factors: DM, Current or recent (<one month) smoker, HTN, HLP, family history of CAD, obesity. (RYAN FAM APRN) Course & Med Decision Making Course & Med Decision Making Pertinent Labs and Imaging studies reviewed. (See chart for details) 40-year-old female, vital signs reviewed, presents emergency department concerning right lower quadrant pain. Patient is worried she might have an appendicitis. Patient's physical presentation not consistent with acute appendicitis. Related to patient's chief complaint however a abdominal work-up was initiated in the emergency department, urinalysis assay, CBC, CMP, lipase, CT abdomen pelvis with IV contrast to rule out acute abdominal process. Patient will be given 1 L normal saline, 4 mg Zofran IV, 4 mg IV morphine. Off going shift report given to ED attending physician Dr. Potter who was taken over patient care at this time. (RYAN FAM APRN) Course & Med Decision Making On reevaluation patient's vital signs normal. Patient was awake, alert and oriented. Laboratory analysis not concerning. Urinalysis with a few bacteria/white blood cells and trace leuk esterase. CT notable for probable fatty liver disease, findings suggestive of possible pyelonephritis, suggestive of previous colitis, indeterminate left adrenal nodule and normal appendix. Given patient's urine and possible pyelonephritis, was started on Keflex in the ED. Discussed all findings with patient and given copy of CT report. Advised to continue antibiotics as prescribed. Advised to follow-up with primary care physician as soon as she can to update them on her ED visit and set up a follow- up appointment. Gave strict return precautions to the ED. Patient grateful, verbalized understanding and agreed with plan of discharge. (SHAUN POTTER MD) Dragon Disclaimer Dragon Disclaimer This electronic medical record was generated, in whole or in part, using a voice recognition dictation system. (RYAN FAM APRN) Departure Departure: Impression: Primary Impression: Urinary tract infection Additional Impressions: Fatty (change of) liver, not elsewhere classified Dermoid cyst of ovary Disposition: HOME / SELF CARE / HOMELESS Condition: GOOD Referrals: JAKUB SANTIAGO (PCP) Patient Instructions: Abdominal Pain (Nonspecific), Urinary Tract Infection Additional Instructions: Please read all the attached information carefully. Please take your antibiotics as prescribed. Please call your primary care physician 1st thing Thursday morning to set up a follow-up appointment to discuss this ED visit and your CT report, and need for further evaluation and treatment. Please come back to the emergency department immediately with new or concerning symptoms as discussed. Scripts Cephalexin (CEPHALEXIN) 500 Mg Capsule 1 CAP PO TID for UTI for 7 Days, #21 CAP Prov: SHANU POTTER MD 11/30/20 Problem Qualifiers RYAN FAM APRN Nov 30, 2020 19:44 SHAUN POTTER MD Nov 30, 2020 21:15
[2020-11-30] MEDS ORDERED: IV NORMAL SALINE 1,000ML 1,000 ML IV ONE (19:45)
[2020-11-30] MEDS ORDERED: MORPHINE SULFATE 4 MG/ML DISP.SYRIN. IV ONE (19:45)
[2020-11-30] MEDS ORDERED: IOHEXOL 300 MG/ML 75 ML VIAL. IV ONE (20:00)
[2020-11-30] MEDS ORDERED: CONTRAST GIVEN. MC PRN (20:00)
[2020-11-30] MEDS ORDERED: ONDANSETRON PF 4 MG/2 ML VIAL. IVP ONE (20:30)
[2020-11-30 20:33] LABS: BASO % 0 % (0-3); EOS # 0.1 x10^3/uL (0.0-0.7); EOS % 2 % (0-3); HEMATOCRIT 43.1 % (36.0-47.0); HEMOGLOBIN 15.1 g/dL (12.0-15.5); LYMPH # 2.4 x10^3/uL (1.0-4.8); LYMPH % 33 % (24-48); MEAN CORPUSCULAR HEMOGLOBIN 31 pg (25-35); MEAN CORPUSCULAR HGB CONC 35 g/dL (31-37); MEAN CORPUSCULAR VOLUME 89 fL (79-100); MONO # 0.7 x10^3/uL (0.0-1.1); MONO % 9 % (0-9); NEUT % 56 % (31-73); PLATELET COUNT 227 x10^3/uL (140-400); RED BLOOD COUNT 4.85 x10^6/uL (3.50-5.40); RED CELL DISTRIBUTION WIDTH 13.2 % (11.5-14.5); WHITE BLOOD COUNT 7.2 x10^3/uL (4.0-11.0)
[2020-11-30 20:37] LABS: CALCIUM 8.4 mg/dL (8.5-10.1); CREATININE 0.8 mg/dL (0.6-1.0); POTASSIUM 3.1 mmol/L (3.5-5.1)
[2020-11-30 20:51] LABS: ALBUMIN 3.5 g/dL (3.4-5.0); ALBUMIN/GLOBULIN RATIO 0.8 (1.0-1.7); TOTAL BILIRUBIN 0.8 mg/dL (0.2-1.0)
--- NOTE | 2020-11-30 20:51 | RAD ---
EXAM: CT Abdomen and Pelvis with IV contrast CLINICAL HISTORY: RLQ PAIN.HX KAREN,HYSTERECTOMY, COMPARISON: 01/24/2018 TECHNIQUE: Helical CT of the abdomen and pelvis was performed following the administration of intrave nous contrast. Axial, coronal and sagittal reformatted images were generated. PQRS compliance statement - One or more of the following individualized dose reduction techniques wer e utilized for this study: 1. Automated exposure control 2. Adjustment of the mA and/or kV according to patient size 3. Use of iterative reconstruction technique FINDINGS: Lower Chest: Lung bases are clear. Abdomen and Pelvis: Hepatic hypoattenuation, likely fatty liver. Cholecystectomy clips are seen. No biliary ductal dilata tion. Pancreas is unremarkable. Spleen is normal in appearance. Indeterminate left adrenal nodule wit h Hounsfield units measuring 30, new compared to 01/24/2018. Heterogeneous right nephrograms. No focal renal lesion. No hydronephrosis. No hydroureter. Bladder is decompressed. Appendix is normal. Moderate colonic stool content is seen. No small or large bowel dilatation. Relat dany featureless appearance of the proximal transverse colon may be related to prior colitis/inflammat ory bowel disease. Fat-containing lesion right adnexa likely dermoid. There is been a hysterectomy. Left ovary is grossl y normal in appearance. Trace fat-containing periumbilical hernia. No aggressive osseous lesion is seen. IMPRESSION: 1. Heterogeneous right nephrograms may be seen with pyelonephritis. 2. Fat-containing lesion right adnexa likely dermoid. 3. Hepatic hypoattenuation, likely fatty liver. 4. Relative featureless appearance of the proximal transverse colon may be related to prior colitis/ inflammatory bowel disease. 5. Indeterminate left adrenal nodule, new compared to prior CT 01/24/2018, can be further assessed by multiphase CT or MRI. 6. Appendix is normal. Electronically signed by: Se López MD (11/30/2020 8:49 PM) [id number]
[2020-11-30 20:59] LABS: BACTERIA,URINE FEW /HPF (0-FEW); BILIRUBIN,URINE NEG (NEG); CLARITY,URINE HAZY; COLOR,URINE YELLOW; GLUCOSE,URINE NEG (NEG); NITRITE,URINE NEG (NEG); RBC,URINE 0 /HPF (0-2); SQUAMOUS EPITHELIAL CELL,UR MANY /LPF
[2020-11-30 21:08] VITALS: BP 110/49
[2020-11-30] MEDS ORDERED: CEPH500C PO ×2 (21:15→21:17)
[2020-11-30] MEDS ORDERED: ONDA4TAB7 PO (21:28)
[2020-11-30] MEDS ORDERED: CEPHALEXIN 250 MG CAPSULE PO ONE (21:30)
[2020-11-30] MEDS ORDERED: ONDANSETRON ODT 4 MG TAB.RAPDIS PO ONE (21:30)
== END 2020-11-30 21:31 | disposition home or self-care (01) ==
LOC: ER 19:13
DX: N39.0 Urinary tract infection, site not specified (principal); D27.0 Benign neoplasm of right ovary; K76.0 Fatty (change of) liver, not elsewhere classified; K42.9 Umbilical hernia without obstruction or gangrene; J44.9 Chronic obstructive pulmonary disease, unspecified; I10 Essential (primary) hypertension; F17.210 Nicotine dependence, cigarettes, uncomplicated; Z90.49 Acquired absence of other specified parts of digestive tract; Z88.5 Allergy status to narcotic agent; Z91.040 Latex allergy status; Z88.8 Allergy status to other drugs, medicaments and biological substances
CPT/HCPCS: 36415; 74177; 80053; 81001; 83605; 83690; 85025; 87086; 96361; 96374; 96375; 99285; J2270; J2405; J7030; Q0162; Q9967

== ENCOUNTER 2020-12-14 15:21 | Emergency (ER) | payer OTHER ==
[~2020-12-14] VITALS: Ht 175.3 cm; Wt 105.0 kg
[~2020-12-14 15:21] MED LIST changes: +CEPH500C PO; +ONDA4TAB7 PO
[2020-12-14 15:34] VITALS: BP 140/74
--- NOTE | 2020-12-14 16:26 | RAD ---
XR HAND_RIGHT 3 VIEWS 12/14/2020 4:12 PM INDICATION: Punched a wall today COMPARISON: None available. TECHNIQUE: 3 views of the right hand are provided. FINDINGS/ IMPRESSION: There is no acute fracture or dislocation. Joint spaces are maintained. Bone mineralization is within normal limits. Regional soft tissues are within normal limits. There is no soft tissue gas or osseou s erosion. No radiopaque foreign body. Electronically signed by: Erica Bajwa MD (12/14/2020 4:23 PM) [id number]
--- NOTE | 2020-12-14 17:17 | PHYS DOC ---
Past History Past Medical History: Hypertension Additional Past Medical Histor: lupus, "clotting disorder" (RYAN FAM APRN) Past Surgical History: Cholecystectomy, Hysterectomy (RYAN FAM APRN) Smoking: Cigarettes, Greater than 1 pack/day Alcohol Use: None Drug Use: None (RYAN FAM APRN) Adult General Chief Complaint Chief Complaint: HAND PROBLEM HPI HPI Patient is a 40-year-old female presents to the emergency department complaining of right hand pain since 10 AM after she punched a wall 1 time. Patient states that approximately 1045 this morning she took 650 mg [id number] Tylenol for pain. Patient states it hurts to move her pinky finger and her wrist. Patient reports an allergy to gabapentin, latex, hydrocodone, and codeine. Patient reports a past medical history of lupus stating she takes Pristiq, hydrochlorothiazide, vitamin D2, Voltaren, Plaquenil, daily aspirin, and albuterol inhaler. Patient denies any other physical complaints or physical concerns other than her right hand pain at this time. (RYAN FAM APRN) Review of Systems Review of Systems 14 body systems of review of systems have been reviewed. See HPI for pertinent positives and negative responses, otherwise all other systems are negative, nonpertinent or noncontributory. (RYAN FAM APRN) Allergies Allergies Allergies Coded Allergies Type Severity Reaction Last Updated Verified codeine Allergy Unknown 12/14/20 Yes gabapentin Allergy Unknown 06/06/20 Yes hydrocodone Allergy Unknown 04/22/20 Yes latex Allergy Unknown 06/06/20 Yes (RYAN FAM APRN) Physical Exam Physical Exam Constitutional: Well developed, well nourished, no acute distress, non-toxic appearance. 40-year-old female no apparent distress. HENT: Normocephalic, atraumatic, bilateral external ears normal, oropharynx moist, no oral exudates, nose normal. Eyes: PERRLA, EOMI, conjunctiva normal, no discharge. Neck: Normal range of motion, no tenderness, supple, no stridor. Cardiovascular:Heart rate regular rhythm, no murmur Lungs & Thorax: Bilateral breath sounds clear to auscultation Abdomen: Bowel sounds normal, soft, no tenderness, no masses, no pulsatile masses. Skin: Warm, dry, no erythema, no rash. Back: No tenderness, no CVA tenderness. Extremities: No tenderness, no cyanosis, no clubbing, ROM intact, no edema. Except for right hand, patient complains of pain with passive range of motion of pinky finger, pain to palpation along fifth metacarpal and digit, no crepitus appreciated, no bruising appreciated, no swelling appreciated, distal cap refill less than 2 seconds, limited range of motion related to pain. Neurologic: Alert and oriented X 3, normal motor function, normal sensory function, no focal deficits noted. Psychologic: Affect normal, judgement normal, mood normal. (RYAN FAM APRN) Current Patient Data Vital Signs Vital Signs Date Time Temp Pulse Resp B/P (MAP) Pulse Ox O2 Delivery O2 Flow Rate FiO2 12/14/20 15:34 98.4 69 16 140/74 (96) 98 Room Air (RYAN FAM APRN) EKG EKG [] (RYAN FAM APRN) Radiology/Procedures Radiology/Procedures PATIENT: LALIT MIRANDA MACCOUNT: [id number] : 1980 LOCATION: ER AGE: 40 SEX: F EXAM STATUS: REG ER ORD. PHYSICIAN: RYAN FAM APRN REASON: PUNCHED WALL TODAY, PAIN ALONG 5TH DIGIT PROCEDURE: HAND RIGHT 3V XR HAND_RIGHT 3 VIEWS 12/14/2020 4:12 PM INDICATION: Punched a wall today COMPARISON: None available. TECHNIQUE: 3 views of the right hand are provided. FINDINGS/ IMPRESSION: There is no acute fracture or dislocation. Joint spaces are maintained. Bone mineralization is within normal limits. Regional soft tissues are within normal limits. There is no soft tissue gas or osseous erosion. No radiopaque foreign body. Electronically signed by: Nicolle Huffman MD (12/14/2020 4:23 PM) [id number] DICTATED AND SIGNED BY: NICOLLE HUFFMAN MD DATE: 12/14/20 1623 CC: RYAN FAM APRN; JAKUB SANTIAGO PA ~MTH0 0 (RYAN FAM APRN) Heart Score C/O Chest Pain: No Risk Factors: Risk Factors: DM, Current or recent (<one month) smoker, HTN, HLP, family history of CAD, obesity. Risk Scores: Risk Factors: DM, Current or recent (<one month) smoker, HTN, HLP, family history of CAD, obesity. (RYAN FAM APRN) Course & Med Decision Making Course & Med Decision Making Pertinent Labs and Imaging studies reviewed. (See chart for details) 40-year-old female, vital signs reviewed, presents emergency department concerning right hand pain after punching a wall. Physical examination unremarkable, related to patient's chief complaint will order x-ray to rule out fracture of right hand. Patient had taken Tylenol for pain just prior to arrival. Patient rates her pain a 7/10 on a 1-10 pain scale. X-ray imaging read negative for acute fracture or acute process per house radiologist interpretation, reviewed findings with patient, will place Velcro wrist splint for comfort, ice packs, elevation, compression with Francisco bandage. Reviewed RICE therapy with patient. Patient gave verbal understanding of discharge home instructions, follow-up with primary care on Thursday for ongoing discomfort and pain management, return to ER precautions and concerns, patient was discharged home without incident. (RYAN FAM APRN) Dragon Disclaimer Dragon Disclaimer This electronic medical record was generated, in whole or in part, using a voice recognition dictation system. (RYAN FAM APRN) Attending Co-Sign The patient was seen and interviewed as well as examined at the bedside. The chart was reviewed. The case was discussed. Agree with the plan of care. (SIGRID OVIEDO DO) Departure Departure: Impression: Primary Impression: Contusion of right hand Disposition: HOME / SELF CARE / HOMELESS Condition: GOOD Referrals: JAKUB SANTIAGO (PCP) Patient Instructions: Contusion, Elastic Bandage and RICE, RICE - Routine Care for Injuries Additional Instructions: You are examined in the emergency department today for right hand pain after striking a wall today. X-ray of your right hand did not show any concerning findings for broken bones or injury that require further and immediate interve ntion by an health care law specialist. We have discussed RICE therapy, rest, ice, compression, elevation. Please use ice 30 minutes on 30 minutes off while awake for the next 48 hours. You may use an Francisco wrap and/or provided wrist splint for comfort. As we discussed please follow-up with your primary care provider Eric Santiago this coming Thursday for ongoing pain control. Please return to the emergency department for worsening symptoms or other concerns. EMERGENCY DEPARTMENT GENERAL DISCHARGE INSTRUCTIONS Thank you for coming to [facility] (ED) today and trusting us with you care. We trust that you had a positivie experience in our Emergency Department. If you wish to speak to the department management, you may call the director at [phone]. YOUR FOLLOW UP INSTRUCTIONS ARE FOLLOWS: 1. Do you have a private Doctor? If you do not have a private doctor, please ask for a resource list of physicians or clinics that may be able to assist you with follow up care. 2. The Emergency Physician has interpreted your x-rays. The X-Ray specialist will also review them. If there is a change in the findings, you will be notified in 48 hours when at all possible. 3. A lab test or culture has been done, your results will be reviewed and you will be notified if you need a change in treatment. ADDITIONAL INSTRUCTIONS AND INFORMATION: 1. Your care today has been supervised by a physician who is specially trained in emergency care. Many problems require more than one evaluation for a complete diagnosis and treatment. We recommend that you schedule your follow up appointment as recommended to ensure complete treatment of you illness or injury. If you are unable to obtain follow up care and continue to have a problem, or if your condition worsens, we recommend that you return to the ED. 2. We are not able to safely determine your condition over the phone nor are we able to give sound medical advice over the phone. For these safety reasons, if you call for medical advice we will ask you to come to the ED for further evaluation. 3. If you have any questions regarding these discharge instructions please call the ED at [phone]. SAFETY INFORMATION: In the interest of safety, wellness, and injury prevention; we encourage you to wear your sealbelt, if you smoke; quite smoking, and we encourage family to use a protective helmet for bicycling and other sporting events that present an increased risk for head injury. IF YOUR SYMPTOMS WORSEN OR NEW SYMPTOMS DEVELOP, OR YOU HAVE CONCERNS ABOUT YOUR CONDITION; OR IF YOUR CONDITION WORSENS WHILE YOU ARE WAITING FOR YOUR FOLLOW UP APPOINTMENT; EITHER CONTACT YOUR PRIMARY CARE DOCTOR, THE PHYSICIAN WHOSE NAME AND NUMBER YOU WERE GIVEN, OR RETURN TO THE ED IMMEDIATELY. Problem Qualifiers Primary Impression: Contusion of right hand Encounter type: initial encounter Qualified Codes: S60.221A - Contusion of right hand, initial encounter RYAN FAM APRN December 14, 2020 17:17 SIGRID OVIEDO DO December 15, 2020 18:21
== END 2020-12-14 17:21 | disposition home or self-care (01) ==
LOC: ER 15:21
DX: S60.221A Contusion of right hand, initial encounter (principal); I10 Essential (primary) hypertension; F17.210 Nicotine dependence, cigarettes, uncomplicated; Z79.899 Other long term (current) drug therapy; Z79.82 Long term (current) use of aspirin; Z88.5 Allergy status to narcotic agent; Z91.040 Latex allergy status; Z88.8 Allergy status to other drugs, medicaments and biological substances; W22.01XA Walked into wall, initial encounter; Y93.89 Activity, other specified; Y92.89 Other specified places as the place of occurrence of the external cause; Y99.8 Other external cause status
CPT/HCPCS: 73130; 99283

== ENCOUNTER → 2020-12-20 | Outpatient (CLI) | payer OTHER ==
[2020-12-14 15:34] VITALS: BP 140/74
--- NOTE | 2020-12-20 09:01 | RAD ---
Exam performed: Right hand 3 views. Indication: Right hand pain. Date of Service: 12/20/2020 Comparison: None available Discussion: PA, oblique lateral radiographs of the hand reveal the osseous structures to be intact and well align ed. The joint spaces are well-preserved. The articular margins are smooth. No soft tissue swelling or foreign bodies detected. Impression: Radiographically normal right hand. Electronically signed by: Danielle Rand MD (12/20/2020 8:59 AM) [id number]
== END ==
LOC: RAD 08:37
PROVIDERS: ATTEND Nurse Practitioner Family
DX: M79.641 Pain in right hand (principal)
CPT/HCPCS: 73130

== ENCOUNTER → 2021-01-23 | Outpatient (CLI) | payer OTHER ==
--- NOTE | 2021-01-24 10:40 | RAD ---
XR LUMBAR SPINE 4+V History: Reason: LOW BACK PAIN / Spl. Instructions: / History: Technique: 5 views lumbar spine. Comparison: None. Findings: Normal vertebral body height and alignment. No fracture. Mild degenerative disc changes most prominen t L5-S1. Mild lumbar facet arthropathy. Surgical clips right upper quadrant. Impression: 1. Mild multilevel lumbar spondylosis. Electronically signed by: Rickey Harden DO (01/24/2021 10:37 AM) [id number]
== END ==
LOC: RAD 13:51
PROVIDERS: ATTEND Physician Assistant
DX: M47.817 Spondylosis without myelopathy or radiculopathy, lumbosacral region (principal)
CPT/HCPCS: 72110

== ENCOUNTER 2021-03-29 08:15 | Emergency (ER) | payer OTHER ==
[~2021-03-29] VITALS: Ht 175.3 cm; Wt 105.0 kg
[~2021-03-29 08:15] MED LIST changes: -DOXY100C2 PO; +DOXY100C3 PO; -LISI2.5T; +LISI2.5T12
[2021-03-29 08:20] VITALS: BP 122/76
--- NOTE | 2021-03-29 08:53 | PHYS DOC ---
Past History Past Medical History: Hypertension Additional Past Medical Histor: lupus, "clotting disorder" Past Surgical History: Cholecystectomy, Hysterectomy Smoking: Cigarettes, Greater than 1 pack/day Alcohol Use: None Drug Use: None Social History Narrative: states she uses CBD oil for pain General Adult EDM: Chief Complaint: LOWER EXT PAIN HPI: HPI: 41-year-old female presents with right lower leg pain. Patient states that she feels like her right lower leg is more swollen than usual. It started hurting in the calf last night. She is worried about blood clot. Patient reports a history of lupus. She is well-known to the emergency room. She denies shortness of breath, fever, chills. Review of Systems: Review of Systems: Constitutional: Denies fever or chills Eyes: Denies change in visual acuity HENT: Denies nasal congestion or sore throat Respiratory: Denies cough or shortness of breath Cardiovascular: Denies chest pain or edema GI: Denies abdominal pain, nausea, vomiting, bloody stools or diarrhea : Denies dysuria Musculoskeletal: right lower leg pain Integument: Denies rash Neurologic: Denies headache, focal weakness or sensory changes Endocrine: Denies polyuria or polydipsia Lymphatic: Denies swollen glands Psychiatric: Denies depression or anxiety Allergies: Allergies: Allergies Coded Allergies Type Severity Reaction Last Updated Verified codeine Allergy Unknown 03/29/21 Yes gabapentin Allergy Unknown 03/29/21 Yes hydrocodone Allergy Unknown 03/29/21 Yes latex Allergy Unknown 03/29/21 Yes Physical Exam: PE: Constitutional: Well developed, well nourished, no acute distress, non-toxic appearance. [] HENT: Normocephalic, atraumatic, bilateral external ears normal, oropharynx moist, no oral exudates, nose normal. [] Eyes: PERRLA, EOMI, conjunctiva normal, no discharge. [] Neck: Normal range of motion, no tenderness, supple, no stridor. [] Cardiovascular:Heart rate regular rhythm, no murmur [] Lungs & Thorax: Bilateral breath sounds clear to auscultation [] Abdomen: Bowel sounds normal, soft, no tenderness, no masses, no pulsatile masses. [] Skin: Warm, dry, no erythema, no rash. [] Back: No tenderness, no CVA tenderness. [] Extremities: right lower calf tenderness, no obvious swelling [] Neurologic: Alert and oriented X 3, normal motor function, normal sensory function, no focal deficits noted. [] Psychologic: Affect normal, judgement normal, mood normal. [] Current Patient Data: Vital Signs: Vital Signs Date Time Temp Pulse Resp B/P (MAP) Pulse Ox O2 Delivery O2 Flow Rate FiO2 03/29/21 08:20 97.7 90 18 122/76 98 Room Air EKG: EKG: [] Radiology/Procedures: Radiology/Procedures: [] Impressions: STUDY: US DPLX VENOUS EXTREMITY LOWER RT INDICATION: Pain, swelling, concern for DVT. TECHNIQUE: Color-flow and pulsed wave duplex ultrasound with compression of venous structures of the right lower extremity. COMPARISON: None Available. FINDINGS: Duplex ultrasound with compression of the deep venous structures of the right lower extremity from the common femoral vein through the popliteal vein is negative for DVT. The posterior tibial and peroneal veins are segmentally visualized and patent where seen. Normal venous waveforms and augmentation are noted throughout. IMPRESSION: No deep venous thrombosis of the right lower extremity. Electronically signed by: Kenrick Brown MD (03/29/2021 8:55 AM) [id number] DICTATED AND SIGNED BY: KENRICK BROWN MD DATE: 03/29/21 0851 CC: SIGRID OVIEDO DO; JAKUB SANTIAGO NE ~MTH0 0 Heart Score: C/O Chest Pain: N/A Risk Factors: Risk Factors: DM, Current or recent (<one month) smoker, HTN, HLP, family history of CAD, obesity. Risk Scores: Score 0 - 3: 2.5% MACE over next 6 weeks - Discharge Home Score 4 - 6: 20.3% MACE over next 6 weeks - Admit for Clinical Observation Score 7 - 10: 72.7% MACE over next 6 weeks - Early Invasive Strategies Course & Med Decision Making: Course & Med Decision Making Pertinent Labs and Imaging studies reviewed. (See chart for details) The patient's ultrasound is negative for DVT. I do not have justification to send her home with a prescription for pain medication. She is stable for discharge at this time. [] Dragon Disclaimer: Dragon Disclaimer: This electronic medical record was generated, in whole or in part, using a voice recognition dictation system. Departure Departure: Impression: Primary Impression: Pain of right lower leg Disposition: HOME / SELF CARE / HOMELESS Condition: STABLE Referrals: JAKUB SANTIAGO (PCP) SIGRID OVIEDO DO Mar 29, 2021 08:53
--- NOTE | 2021-03-29 08:57 | RAD ---
STUDY: US DPLX VENOUS EXTREMITY LOWER RT INDICATION: Pain, swelling, concern for DVT. TECHNIQUE: Color-flow and pulsed wave duplex ultrasound with compression of venous structures of the right lower extremity. COMPARISON: None Available. FINDINGS: Duplex ultrasound with compression of the deep venous structures of the right lower extremity from th e common femoral vein through the popliteal vein is negative for DVT. The posterior tibial and peroneal veins are segmentally visualized and patent where seen. Normal veno us waveforms and augmentation are noted throughout. IMPRESSION: No deep venous thrombosis of the right lower extremity. Electronically signed by: Kenrick Brown MD (03/29/2021 8:55 AM) [id number]
[2021-03-29] MEDS ORDERED: HYDROcodone/APAP 5/325MG 1 TAB TABLET PO ONE (09:45)
== END 2021-03-29 10:00 | disposition home or self-care (01) ==
LOC: ER 08:15
DX: M79.661 Pain in right lower leg (principal); Z88.5 Allergy status to narcotic agent; Z91.040 Latex allergy status
CPT/HCPCS: 93971; 99284-25

== ENCOUNTER → 2021-04-09 | Outpatient (CLI) | payer OTHER ==
[2021-03-29 08:20] VITALS: BP 122/76
== END ==
LOC: LAB 13:54
PROVIDERS: ATTEND Internal Medicine Rheumatology
DX: R53.82 Chronic fatigue, unspecified (principal)
CPT/HCPCS: 82306

== ENCOUNTER → 2021-04-27 | Emergency (ER) | payer OTHER ==
[~2021-04-27] VITALS: Ht 175.3 cm; Wt 106.7 kg
[~2021-04-27] MED LIST changes: +IBUPROFEN 600 MG TABLET. PO ONE
[2021-04-27 19:35] VITALS: BP 134/93
--- NOTE | 2021-04-27 19:45 | PHYS DOC ---
Past History Past Medical History: Hypertension Additional Past Medical Histor: lupus, "clotting disorder" (OJ BRITTON APRN) Past Surgical History: Cholecystectomy, , Hysterectomy (OJ BRITTON APRN) Smoking: Cigarettes, Greater than 1 pack/day Alcohol Use: None Drug Use: None (OJ BRITTON APRN) General Adult EDM: Chief Complaint: LOWER EXT PAIN HPI: HPI: Patient is a 41-year-old female being seen in the ER for left leg pain. Patient reports that her left leg was swollen yesterday. She states she has a history of lower extremity edema and she usually does elevates her extremities and it goes away. She states that the edema has resolved but the pain started today. She took Tylenol prior to arrival. Most of her pain is located in her ankle and it radiates into her arch of her foot. Patient has a history of plantar fasciitis. Patient rates her pain 6 out of 10. Patient denies any injury, wounds, chest pain, shortness of breath. (OJ BRITTON APRN) Review of Systems: Review of Systems: 14 body systems of the review of systems have been reviewed. See HPI for pertinent positive and negative responses, otherwise all other systems are negative, nonpertinent or noncontributory (OJ BRITTON APRN) Allergies: Allergies: Allergies Coded Allergies Type Severity Reaction Last Updated Verified codeine Allergy Unknown 03/29/21 Yes gabapentin Allergy Unknown 03/29/21 Yes latex Allergy Unknown 03/29/21 Yes (OJ BRITTON APRN) Physical Exam: PE: Constitutional: Well developed, well nourished, no acute distress, non-toxic appearance. [] HENT: Normocephalic, atraumatic Eyes: PERRL, EOMI, conjunctiva normal, no discharge. [] Neck: Normal range of motion, no stridor Cardiovascular:Heart rate regular rhythm, no murmur [] Lungs & Thorax: Bilateral breath sounds clear to auscultation [] Abdomen: Soft Skin: Warm, dry, no erythema, no rash. [] Back: Normal range of motion Extremities: No tenderness, no cyanosis, no clubbing, ROM intact, no edema. [] Left lower extremity: No edema noted, no redness, no warmth, no wounds/lesions, pain with dorsiflexion of foot, range of motion intact, neurovascularly intact Neurologic: Alert and oriented X 3, normal motor function, normal sensory function, no focal deficits noted. [] Psychologic: Affect normal, judgement normal, mood normal. [] (OJ BRITTON APRN) Current Patient Data: Vital Signs: Vital Signs Date Time Temp Pulse Resp B/P (MAP) Pulse Ox O2 Delivery O2 Flow Rate FiO2 04/27/21 19:35 110 134/93 (107) 97 Room Air (OJ BRITTON APRN) EKG: EKG: [] (OJ BRITTON APRN) Radiology/Procedures: Radiology/Procedures: PROCEDURE: VENOUS LOWER EXTREMITY LEFT STUDY: US DPLX VENOUS EXTREMITY LOWER LT INDICATION: Leg swelling and pain. TECHNIQUE: Color-flow and pulsed wave duplex ultrasound with compression of venous structures of the left lower extremity. COMPARISON: None Available. FINDINGS: Duplex ultrasound with compression of the deep venous structures of the left lower extremity from the common femoral vein through the popliteal vein is negative for DVT. The posterior tibial and peroneal veins are segmentally visualized and patent where seen. Normal venous waveforms and augmentation are noted throughout. IMPRESSION: No deep venous thrombosis of the left lower extremity. Electronically signed by: Kenrick Tavares MD (04/27/2021 9:45 PM) [facility] DICTATED AND SIGNED BY: KENRICK TAVARES MD DATE: 04/27/212144 CC: EMERGENCY,DEPARTMENT; JAKUB SANTIAGO; OJ BRITTON APRN ~MTH0 0 [] (OJ BRITTON APRN) Heart Score: C/O Chest Pain: No Risk Factors: Risk Factors: DM, Current or recent (<one month) smoker, HTN, HLP, family history of CAD, obesity. Risk Scores: Score 0 - 3: 2.5% MACE over next 6 weeks - Discharge Home Score 4 - 6: 20.3% MACE over next 6 weeks - Admit for Clinical Observation Score 7 - 10: 72.7% MACE over next 6 weeks - Early Invasive Strategies (OJ BRITTON APRN) Course & Med Decision Making: Course & Med Decision Making Pertinent Labs and Imaging studies reviewed. (See chart for details) [] Patient is a 41-year-old female being seen in the ER for left lower leg swelling and pain. An ultrasound was performed of her left lower extremity to rule out a blood clot. Patient's Wells score is 0, low risk for DVT. Ultrasound was negative for any acute findings. Patient's pain is located in her ankle and radiates into the arch of her foot. Patient has a history of plantar fasciitis. Patient's pain treated in the ER with ibuprofen since she did drive herself here. Believe that patient pain is due to her plantar fasciitis as it is in the location of her plantar fascia. Patient advised to take Tylenol/ibuprofen for her pain at home. She was educated to elevate extremity for any edema. I discussed with patient all findings and diagnostic testing as well as the need to follow-up with PCP for further evaluation and treatment or return to the ER if any new or worsening symptoms. Strict return precautions were also discussed at length. Patient voiced understanding and agreement with the plan. Patient is hemodynamically stable at the time of disposition. (OJ BRITTON APRN) Course & Med Decision Making Did not see or evaluate patient. 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 (SHAUN POTTER MD) Dragon Disclaimer: Dragon Disclaimer: This electronic medical record was generated, in whole or in part, using a voice recognition dictation system. (OJ BRITTON APRN) Departure Departure: Impression: Primary Impression: Plantar fasciitis Additional Impression: Lower extremity edema Disposition: 01 HOME / SELF CARE / HOMELESS Condition: GOOD Referrals: JAKUB SANTIAGO (PCP) Patient Instructions: Edema, Plantar Fasciitis Additional Instructions: You were seen in the ER for left ankle pain that radiates into your arch of your foot. This is consistent with plantar fasciitis which you have a history of. Please take Tylenol/ibuprofen for pain at home. You may benefit from orthotic shoe inserts. You can also perform stretching to help with plantar fasciitis. You reported lower extremity swelling yesterday that resolved with elevation. An ultrasound was performed to rule out a blood clot and it was negative. You are being discharged home with pain medication. Please follow-up with your primary care provider tomorrow regarding your ER visit. If you develop increased leg swelling, chest pain, shortness of breath, high fevers refractory to treatment inability to bear weight or ambulate please return to the ER. EMERGENCY DEPARTMENT GENERAL DISCHARGE INSTRUCTIONS Thank you for coming to [facility] ([facility]) today and trusting us with you care. We trust that you had a positivie experience in our Emergency Department. If you wish to speak to the department management, you may call the director at [phone]. YOUR FOLLOW UP INSTRUCTIONS ARE FOLLOWS: 1. Do you have a private Doctor? If you do not have a private doctor, please ask for a resource list of physicians or clinics that may be able to assist you with follow up care. 2. The Emergency Physician has interpreted your x-rays. The X-Ray specialist will also review them. If there is a change in the findings, you will be notified in 48 hours when at all possible. 3. A lab test or culture has been done, your results will be reviewed and you will be notified if you need a change in treatment. ADDITIONAL INSTRUCTIONS AND INFORMATION: 1. Your care today has been supervised by a physician who is specially trained in emergency care. Many problems require more than one evaluation for a complete diagnosis and treatment. We recommend that you schedule your follow up appointment as recommended to ensure complete treatment of you illness or injury. If you are unable to obtain follow up care and continue to have a problem, or if your condition worsens, we recommend that you return to the ED. 2. We are not able to safely determine your condition over the phone nor are we able to give sound medical advice over the phone. For these safety reasons, if you call for medical advice we will ask you to come to the ED for further evaluation. 3. If you have any questions regarding these discharge instructions please call the ED at [phone]. SAFETY INFORMATION: In the interest of safety, wellness, and injury prevention; we encourage you to wear your sealbelt, if you smoke; quite smoking, and we encourage family to use a protective helmet for bicycling and other sporting events that present an increased risk for head injury. IF YOUR SYMPTOMS WORSEN OR NEW SYMPTOMS DEVELOP, OR YOU HAVE CONCERNS ABOUT YOUR CONDITION; OR IF YOUR CONDITION WORSENS WHILE YOU ARE WAITING FOR YOUR FOLLOW UP APPOINTMENT; EITHER CONTACT YOUR PRIMARY CARE DOCTOR, THE PHYSICIAN WHOSE NAME AND NUMBER YOU WERE GIVEN, OR RETURN TO THE ED IMMEDIATELY. OJ BRITTON APRN Apr 27, 2021 19:45 SHAUN POTTER MD Apr 27, 2021 22:12
--- NOTE | 2021-04-27 21:48 | RAD ---
STUDY: US DPLX VENOUS EXTREMITY LOWER LT INDICATION: Leg swelling and pain. TECHNIQUE: Color-flow and pulsed wave duplex ultrasound with compression of venous structures of the left lower extremity. COMPARISON: None Available. FINDINGS: Duplex ultrasound with compression of the deep venous structures of the left lower extremity from the common femoral vein through the popliteal vein is negative for DVT. The posterior tibial and peroneal veins are segmentally visualized and patent where seen. Normal veno us waveforms and augmentation are noted throughout. IMPRESSION: No deep venous thrombosis of the left lower extremity. Electronically signed by: Kenrick Brown MD (04/27/2021 9:45 PM) [facility]
== END ==
LOC: ER 19:18
DX: M72.2 Plantar fascial fibromatosis (principal); R60.0 Localized edema; F17.210 Nicotine dependence, cigarettes, uncomplicated; Z90.49 Acquired absence of other specified parts of digestive tract; Z91.040 Latex allergy status; Z88.5 Allergy status to narcotic agent; Z88.8 Allergy status to other drugs, medicaments and biological substances; Z90.710 Acquired absence of both cervix and uterus
CPT/HCPCS: 93971; 99284

== ENCOUNTER → 2021-06-04 | Outpatient (CLI) | payer OTHER ==
[2021-04-27 19:35] VITALS: BP 134/93
[~2021-06-04] MED LIST changes: -CYCL-331 PO; +CYCL10TA19 PO; -IBUPROFEN 600 MG TABLET. PO ONE
--- NOTE | 2021-06-04 14:42 | RAD ---
AP, lateral, and oblique views of the right foot were obtained. History: Reason: RIGHT 1ST DIGIT PAIN X<1 DAY / Spl. Instructions: / History: Comparison: None. There is no fracture, subluxation or dislocation. No significant degenerative changes, or significant soft tissue swelling seen. The bones of the midfoot are well aligned. Impression: 1. Unremarkable plain film exam of the right foot Electronically signed by: Stalin Klein MD (06/04/2021 2:40 PM) [facility]
== END ==
LOC: RAD 14:21
PROVIDERS: ATTEND Nurse Practitioner Family
DX: M79.671 Pain in right foot (principal)
CPT/HCPCS: 73630

== ENCOUNTER → 2021-07-26 | Outpatient (CLI) | payer OTHER ==
[2021-04-27 19:35] VITALS: BP 134/93
[2021-07-26 10:19] LABS: BASO % 0 % (0-3); EOS # 0.2 x10^3/uL (0.0-0.7); EOS % 2 % (0-3); HEMOGLOBIN 15.1 g/dL (12.0-15.5); LYMPH # 3.3 x10^3/uL (1.0-4.8); LYMPH % 46 % (24-48); MEAN CORPUSCULAR HEMOGLOBIN 31 pg (25-35); MEAN CORPUSCULAR HGB CONC 34 g/dL (31-37); MEAN CORPUSCULAR VOLUME 90 fL (79-100); MONO # 0.6 x10^3/uL (0.0-1.1); MONO % 8 % (0-9); NEUT # 3.2 x10^3uL (1.8-7.7); NEUT % 44 % (31-73); PLATELET COUNT 229 x10^3/uL (140-400); RED BLOOD COUNT 4.92 x10^6/uL (3.50-5.40); WHITE BLOOD COUNT 7.2 x10^3/uL (4.0-11.0)
[2021-07-26 10:34] LABS: BACTERIA,URINE 0 /HPF (0-FEW); BILIRUBIN,URINE NEG (NEG); CLARITY,URINE CLEAR; COLOR,URINE YELLOW; GLUCOSE,URINE NEG (NEG); NITRITE,URINE NEG (NEG); RBC,URINE 0 /HPF (0-2); SQUAMOUS EPITHELIAL CELL,UR FEW /LPF; UROBILINOGEN,URINE 0.2 mg/dL (0.2 mg/dL); WBC,URINE 0 /HPF (0-4)
[2021-07-26 10:41] LABS: ALBUMIN 3.7 g/dL (3.4-5.0); ALBUMIN/GLOBULIN RATIO 0.8 (1.0-1.7); CALCIUM 8.6 mg/dL (8.5-10.1); CREATININE 0.8 mg/dL (0.6-1.0); GFR 78.7; POTASSIUM 3.6 mmol/L (3.5-5.1); TOTAL BILIRUBIN 0.5 mg/dL (0.2-1.0); TOTAL PROTEIN 8.2 g/dL (6.4-8.2)
[2021-07-27 02:06] LABS: C3 COMPLEMENT 142 mg/dL (82-167); C4 COMPLEMENT 19 mg/dL (12-38)
[2021-07-27 16:11] LABS: ANTI-DS DNA 40 IU/mL (0-9)
== END ==
LOC: LAB 09:08
PROVIDERS: ATTEND Internal Medicine Rheumatology
DX: M32.10 Systemic lupus erythematosus, organ or system involvement unspecified (principal)
CPT/HCPCS: 36415; 80053; 81001; 82570; 84156; 85025; 86160; 86255

== ENCOUNTER → 2021-09-23 | Outpatient (CLI) | payer OTHER ==
[2021-04-27 19:35] VITALS: BP 134/93
--- NOTE | 2021-09-23 13:27 | RAD ---
Left lower extremity venous duplex study Clinical History: Left lower extremity pain and swelling Technique: Using a combination of real time ultrasound imaging and color-flow and pulse Doppler imaging techniques, including spectral analysis, graded compression and augmentation, duplex evaluation of the deep venous system of the left lower ex tremity was performed. Multiple images were obtained. Findings: There is no sonographic evidence of deep venous thrombosis involving the visualized deep ve nous structures of the left lower extremity Impression: No evidence of deep venous thrombosis involving the left lower extremity Electronically signed by: Dandre Walton MD (09/23/2021 1:25 PM) [id number]
== END ==
LOC: US 12:56
PROVIDERS: ATTEND Internal Medicine Rheumatology
DX: M79.605 Pain in left leg (principal); M79.89 Other specified soft tissue disorders
CPT/HCPCS: 93971

== ENCOUNTER 2021-10-29 19:05 | Emergency (ER) | payer OTHER ==
[~2021-10-29] VITALS: Ht 175.3 cm; Wt 108.0 kg
[~2021-10-29 19:05] MED LIST changes: -TRAM1TAB56 PO; +TRAM1TAB57 PO
[2021-10-29] MEDS ORDERED: SMZ/TMP 800/160MG TABLET. PO ONE (19:45)
[2021-10-29] MEDS ORDERED: PREG50CA PO (19:51)
[2021-10-29] MEDS ORDERED: SULF1TAB24 PO (19:51)
--- NOTE | 2021-10-29 19:51 | PHYS DOC ---
Past History Past Medical History: Fibromyalgia, Hypertension Additional Past Medical Histor: lupus, "clotting disorder" (KATHIE YO) Past Surgical History: Cholecystectomy, , Hysterectomy (KATHIE YO) Smoking: Cigarettes, Greater than 1 pack/day Alcohol Use: None Drug Use: None (KATHIE YO) General Adult EDM: Chief Complaint: SKIN PROBLEM HPI: HPI: Patient is a 41 year old female who presents with painful bump on the back of her neck. Patient states she did not notice the bump or the pain until her was massaging her neck yesterday. Yesterday, she states it was a size of a golf ball. It is now much flatter. She called her primary care doctor, who she states wanted to make sure the bump was not "a blood clot or something," due to her history of "clotting disorder." Patient reports she sustained a contusion the area a few months ago, but it did not bother her, and she has not thought anything of it since. Patient denies fever, chills, paresthesias, focal weakness, upper extremity pain. Patient has additional complaint of running out of her Lyrica prescription. She states that her elementary school professional diagnosed her with fibromyalgia. Patient was prescribed Lyrica by her primary care doctor, Jorge Santiago PA-C. She has since run out, but her primary care will not represcribe and she does not have an appointment until 11/06, 9 days from now. [place] has no other complaints at this time. (KATHIE YO) Review of Systems: Review of Systems: ROS negative or noncontributory except as mentioned in HPI. (KATHIE YO) Allergies: Allergies: Allergies Coded Allergies Type Severity Reaction Last Updated Verified codeine Allergy Unknown 03/29/21 Yes gabapentin Allergy Unknown 03/29/21 Yes latex Allergy Unknown 03/29/21 Yes (KATHIE YO) Physical Exam: PE: Constitutional: Well developed, well nourished, no acute distress, non-toxic appearance. HENT: Normocephalic, atraumatic, bilateral external ears normal, nose normal. Eyes: EOMI, conjunctiva normal, no discharge. Neck: Normal range of motion, supple, no stridor. Skin: Approximately 2 cm diameter area of induration and erythema noted on the upper back/lower neck, no area of fluctuance appreciated. Skin otherwise warm, dry, no erythema, no rash. Back: No step-off, no bony tenderness. Extremities: No tenderness, no cyanosis, no clubbing, ROM intact, no edema. Neurologic: Alert and oriented x4, normal motor function, normal sensory function, no focal deficits noted. (KATHIE YO) Current Patient Data: Vital Signs: Vital Signs Date Time Temp Pulse Resp B/P (MAP) Pulse Ox O2 Delivery O2 Flow Rate FiO2 10/29/21 19:05 98.1 96 18 134/69 (90) 99 Room Air (KATHIE YO) Heart Score: C/O Chest Pain: No (KATHIE YO) Course & Med Decision Making: Course & Med Decision Making Pertinent Labs and Imaging studies reviewed. (See chart for details) (KATHIE YO) Dragon Disclaimer: Dragon Disclaimer: This electronic medical record was generated, in whole or in part, using a voice recognition dictation system. (KATHIE YO) Departure Departure: Impression: Primary Impression: Cellulitis of upper back excluding scapular region Additional Impressions: History of fibromyalgia Medication refill Disposition: HOME / SELF CARE / HOMELESS Condition: STABLE Referrals: JAKUB SANTIAGO (PCP) Patient Instructions: Cellulitis, [id number] Additional Instructions: EMERGENCY DEPARTMENT GENERAL DISCHARGE INSTRUCTIONS Thank you for coming to [facility] ([facility]) today and trusting us with you care. We trust that you had a positive experience in our Emergency Department. If you wish to speak to the department management, you may call the director at [phone]. YOUR FOLLOW UP INSTRUCTIONS ARE FOLLOWS: 1. Follow up with your primary care doctor. If you do not have a primary doctor, please ask for a resource list of physicians or clinics that may be able to assist you with follow up care. 2. The emergency provider has interpreted your imaging studies, if any were ordered. The radiology reading specialist also reviewed them. If there is a change in the findings, you will be notified in 48 hours when at all possible. 3. If a lab test or culture has been done, your results will be reviewed and you will be notified if you need a change in treatment. 4. Follow instructions verbalized to you and refer to the printouts if needed. ADDITIONAL INSTRUCTIONS AND INFORMATION: 1. Your care today has been supervised by a physician who is specially trained in emergency care. Many problems require more than one evaluation for a complete diagnosis and treatment. We recommend that you schedule your follow up appointment as recommended to ensure complete treatment of you illness or injury. If you are unable to obtain follow up care and continue to have a problem, or if your condition worsens, we recommend that you return to the ED. 2. We are not able to safely determine your condition over the phone nor are we able to give sound medical advice over the phone. For these safety reasons, if you call for medical advice we will ask you to come to the ED for further evaluation. 3. If you have any questions regarding these discharge instructions please call the ED at [phone]. SAFETY INFORMATION: In the interest of safety, wellness, and injury prevention; we encourage you to wear your seat belt, if you smoke; quite smoking, and we encourage family to use a protective helmet for bicycling and other sporting events that present an increased risk for head injury. IF YOUR SYMPTOMS WORSEN OR NEW SYMPTOMS DEVELOP, OR YOU HAVE CONCERNS ABOUT YOUR CONDITION; OR IF YOUR CONDITION WORSENS WHILE YOU ARE WAITING FOR YOUR FOLLOW UP APPOINTMENT; EITHER CONTACT YOUR PRIMARY CARE DOCTOR, THE PHYSICIAN WHOSE NAME AND NUMBER YOU WERE GIVEN, OR RETURN TO THE ED IMMEDIATELY. Scripts Pregabalin (LYRICA) 50 Mg Capsule 1 CAP PO TID for pain for 9 Days, #27 CAP Prov: KATHIE YO 10/29/21 Sulfamethoxazole/Trimethoprim (BACTRIM DS TABLET) 1 Each Tablet 1 TAB PO BID for cellulitis for 7 Days, #13 TAB 0 Refills Prov: KATHIE YO 10/29/21 Dragon Disclaimer This chart was dictated in whole or in part using Voice Recognition software in a busy, high-work load, and often noisy Emergency Department environment. It m ay contain unintended and wholly unrecognized errors or omissions. (BALDO OSULLIVAN MD) Attending Signature Attending Signature I have participated in the care of this patient and I have reviewed and agree wi th all pertinent clinical information above including history, exam, and recommendations. (BALDO OSULLIVAN MD) KATHIE YO Oct 29, 2021 19:51 BALDO OSULLIVAN MD Oct 31, 2021 23:04
[2021-10-29 19:57] VITALS: BP 117/77
== END 2021-10-29 19:57 | disposition home or self-care (01) ==
LOC: ER 19:05
DX: L03.312 Cellulitis of back [any part except buttock and flank] (principal); M79.7 Fibromyalgia; Z76.0 Encounter for issue of repeat prescription; I10 Essential (primary) hypertension; F17.210 Nicotine dependence, cigarettes, uncomplicated; Z88.5 Allergy status to narcotic agent; Z91.040 Latex allergy status; Z88.8 Allergy status to other drugs, medicaments and biological substances
CPT/HCPCS: 99283

== ENCOUNTER → 2021-11-05 | Outpatient (CLI) | payer OTHER ==
[2021-10-29 19:57] VITALS: BP 117/77
[~2021-11-05] MED LIST changes: +PREG50CA PO
== END ==
LOC: LAB 10:22
PROVIDERS: ATTEND Internal Medicine Rheumatology
DX: E55.9 Vitamin D deficiency, unspecified (principal)
CPT/HCPCS: 82306

== ENCOUNTER 2021-11-25 15:05 | Emergency (ER) | payer OTHER ==
[~2021-11-25] VITALS: Ht 175.3 cm; Wt 107.2 kg
[2021-11-25] MEDS ORDERED: IV NORMAL SALINE 1,000ML 1,000 ML IV ONE (16:00)
[2021-11-25] MEDS ORDERED: KETOROLAC 15 MG/ML VIAL. IVP ONE (16:00)
[2021-11-25 16:17] LABS: BACTERIA,URINE 0 /HPF (0-FEW); CLARITY,URINE CLEAR; COLOR,URINE YELLOW; GLUCOSE,URINE NEG (NEG); NITRITE,URINE NEG (NEG); RBC,URINE 0 /HPF (0-2); SQUAMOUS EPITHELIAL CELL,UR OCC /LPF; UROBILINOGEN,URINE 0.2 mg/dL (0.2 mg/dL); WBC,URINE 0 /HPF (0-4)
[2021-11-25 16:31] LABS: BASO % 0 % (0-3); EOS # 0.1 x10^3/uL (0.0-0.7); EOS % 2 % (0-3); HEMATOCRIT 42.1 % (36.0-47.0); HEMOGLOBIN 14.3 g/dL (12.0-15.5); LYMPH # 3.1 x10^3/uL (1.0-4.8); LYMPH % 44 % (24-48); MEAN CORPUSCULAR HEMOGLOBIN 31 pg (25-35); MEAN CORPUSCULAR HGB CONC 34 g/dL (31-37); MEAN CORPUSCULAR VOLUME 90 fL (79-100); MONO # 0.4 x10^3/uL (0.0-1.1); MONO % 7 % (0-9); NEUT # 3.3 x10^3uL (1.8-7.7); NEUT % 47 % (31-73); PLATELET COUNT 243 x10^3/uL (140-400); RED BLOOD COUNT 4.68 x10^6/uL (3.50-5.40); WHITE BLOOD COUNT 6.9 x10^3/uL (4.0-11.0)
[2021-11-25 16:44] LABS: CALCIUM 8.6 mg/dL (8.5-10.1); CREATININE 0.7 mg/dL (0.6-1.0); GFR 91.8; POTASSIUM 3.8 mmol/L (3.5-5.1)
--- NOTE | 2021-11-25 17:15 | PHYS DOC ---
Past History Past Medical History: Fibromyalgia, Hypertension Additional Past Medical Histor: lupus, "clotting disorder" (AZIZA RAZO APRN) Past Surgical History: Cholecystectomy, , Hysterectomy (AZIZA RAZO APRN) Smoking: Cigarettes, Greater than 1 pack/day Alcohol Use: None Drug Use: None (AZIZA RAZO APRN) General Adult EDM: Chief Complaint: ABDOMINAL PAIN HPI: HPI: Patient is a 41-year-old female presents with right-sided abdominal pain that radiates to right flank. Patient states that symptoms started about a month ago. Patient was seen by her PCP 1 week ago, and told that she had blood in her urine but was unable to get a CT at that time. Patient was prescribed tramadol. Last dose was last night with little relief. Patient is afebrile. Denies dysuria. Denies nausea/vomiting/diarrhea. Patient has history of lupus, hypertension, fibromyalgia. (AZIZA RAZO APRN) Review of Systems: Review of Systems: ROS At least 10 ROS systems have been reviewed and are negative except as documented in the HPI. General: Negative except as outlined in HPI above. Skin: Negative except as outlined in HPI above. HEENT: Negative except as outlined in HPI above. Neck: Negative except as outlined in HPI above. Respiratory: Negative except as outlined in HPI above.. Cardiovascular: Negative except as outlined in HPI above. Abdomen: Negative except as outlined in HPI above. : Negative except as outlined in HPI above. Back/MSK: Negative except as outlined in HPI above. Neuro: Negative except as outlined in HPI above. Psych: Negative except as outlined in HPI above. (AZIZA RAZO APRN) Current Medications: Current Meds: Current Medications Medications (Trade) Dose Ordered Sig/Brian Start Time Stop Time Status Last Admin Dose Admin Ketorolac Tromethamine (Toradol 15mg Vial) 15 mg 1X ONCE 11/25/21 16:00 11/25/21 16:13 DC 11/25/21 16:16 15 MG Sodium Chloride 1,000 ml @ 1,000 mls/hr 1X ONCE 11/25/21 16:00 11/25/21 16:59 DC 11/25/21 16:00 1,000 MLS/HR (AZIZA RAZO APRN) Allergies: Allergies: Allergies Coded Allergies Type Severity Reaction Last Updated Verified codeine Allergy Unknown 11/25/21 Yes gabapentin Allergy Unknown 11/25/21 Yes latex Allergy Unknown 11/25/21 Yes (AZIZA RAZO [employer]) Physical Exam: PE: Constitutional: Well developed, well nourished, no acute distress, non-toxic appearance. [] HENT: Normocephalic, atraumatic, bilateral external ears normal, oropharynx moist, no oral exudates, nose normal. [] Eyes: PERRLA,conjunctiva normal, no discharge. [] Neck: Normal range of motion, no tenderness, supple, no stridor. [] Cardiovascular:Heart rate regular rhythm, no murmur [] Lungs & Thorax: Bilateral breath sounds clear to auscultation [] Abdomen: Bowel sounds normal, soft, right lower quadrant tenderness Skin: Warm, dry, no erythema, no rash. [] Back: No tenderness, right-sided CVA tenderness. [] Extremities: No tenderness, no cyanosis, no clubbing, ROM intact, no edema. [] Neurologic: Alert and oriented X 3, normal motor function, normal sensory function, no focal deficits noted. [] Psychologic: Affect normal, judgement normal, mood normal. [] (AZIZA RAZO [employer]) Current Patient Data: Labs: Laboratory Tests Test 11/25/21 15:06 11/25/21 15:50 11/25/21 16:10 POC Urine HCG, Qualitative hcg negative (Negative) Urine Collection Type Clean catch Urine Color Yellow Urine Clarity Clear Urine pH 5.5 Urine Specific [place] 1.020 Urine Protein Neg (NEG-TRACE) Urine Glucose (UA) Neg mg/dL (NEG) Urine Ketones (Stick) Neg mg/dL (NEG) Urine Blood Neg (NEG) Urine Nitrite Neg (NEG) Urine Bilirubin Neg (NEG) Urine Urobilinogen Dipstick 0.2 mg/dL (0.2 mg/dL) Urine Leukocyte Esterase Neg (NEG) Urine RBC 0 /HPF (0-2) Urine WBC 0 /HPF (0-4) Urine Squamous Epithelial Cells Occ /LPF Urine Bacteria 0 /HPF (0-FEW) White Blood Count 6.9 x10^3/uL (4.0-11.0) Red Blood Count 4.68 x10^6/uL (3.50-5.40) Hemoglobin 14.3 g/dL (12.0-15.5) Hematocrit 42.1 % (36.0-47.0) Mean Corpuscular Volume 90 fL (79-100) Mean Corpuscular Hemoglobin 31 pg (25-35) Mean Corpuscular Hemoglobin Concent 34 g/dL (31-37) Red Cell Distribution Width 13.0 % (11.5-14.5) Platelet Count 243 x10^3/uL (140-400) Neutrophils (%) (Auto) 47 % (31-73) Lymphocytes (%) (Auto) 44 % (24-48) Monocytes (%) (Auto) 7 % (0-9) Eosinophils (%) (Auto) 2 % (0-3) Basophils (%) (Auto) 0 % (0-3) Neutrophils # (Auto) 3.3 x10^3uL (1.8-7.7) Lymphocytes # (Auto) 3.1 x10^3/uL (1.0-4.8) Monocytes # (Auto) 0.4 x10^3/uL (0.0-1.1) Eosinophils # (Auto) 0.1 x10^3/uL (0.0-0.7) Basophils # (Auto) 0.0 x10^3/uL (0.0-0.2) Sodium Level 138 mmol/L (136-145) Potassium Level 3.8 mmol/L (3.5-5.1) Chloride Level 105 mmol/L (98-107) Carbon Dioxide Level 27 mmol/L (21-32) Anion Gap 6 (6-14) Blood Urea Nitrogen 9 mg/dL (7-20) Creatinine 0.7 mg/dL (0.6-1.0) Estimated GFR (Cockcroft-Gault) 91.8 Glucose Level 90 mg/dL (70-99) Calcium Level 8.6 mg/dL (8.5-10.1) Vital Signs: Vital Signs Date Time Temp Pulse Resp B/P (MAP) Pulse Ox O2 Delivery O2 Flow Rate FiO2 11/25/21 16:18 72 18 125/82 (96) 98 Room Air 11/25/21 15:23 97.5 (AZIZA RAZO APRN) EKG: EKG: [] (AZIZA RAZO APRN) Radiology/Procedures: Radiology/Procedures: []CT ABDOMEN+PELVIS WO INDICATION: rlq abd pain/right sided flank pain EXAM: Noncontrast CT of the abdomen and pelvis. Coronal and sagittal refor matted images were performed. PQRS compliance statement: One or more of the following individualized dose reduction techniques were utilized for this examination: 1. Automated exposure control 2. Adjustment of the mA and/or kV according to patient size 3. Use of iterative reconstruction technique COMPARISON: None 11/30/2020 FINDINGS: No free air, free fluid, or fluid collection. Lower chest: The visualized lower lungs are aerated. No pleural or pericardial effusion. ABDOMEN: Liver: The noncontrast liver is homogeneous in attenuation. Gallbladder and biliary: Cholecystectomy Normal caliber bile ducts. Spleen: Normal spleen. Pancreas: The noncontrast pancreas is homogeneous in attenuation without peripancreatic inflammatory changes. Adrenal glands: Left adrenal 1.8 cm adenoma (0 Hounsfield units). Right adrenal atrophy. Kidneys and ureters: No opaque urinary calculi. Normal kidneys and ureters. GI tract: The stomach is decompressed and poorly evaluated. Normal caliber small bowel and colon. Normal appendix. Vascular structures: Normal caliber abdominal aorta. Lymph nodes: No lymphadenopathy in the abdomen or pelvis. PELVIS: Genitourinary system: Normal bladder. Hysterectomy. Stable right adnexal 2.2 cm fat-containing lesion, likely a dermoid. SKELETAL STRUCTURES AND SOFT TISSUES: No fracture or destructive lesion in the visualized skeleton. IMPRESSION: 1. No acute findings. No hydronephrosis or opaque urinary calculi. Normal appendix. 2. Stable 2.2 cm right adnexal fat-containing lesion, likely a dermoid. Electronically signed by: Estuardo Sultana MD (11/25/2021 5:14 PM) [facility] (AZIZA RAZO APRN) Heart Score: C/O Chest Pain: No Risk Factors: Risk Factors: DM, Current or recent (<one month) smoker, HTN, HLP, family history of CAD, obesity. Risk Scores: Score 0 - 3: 2.5% MACE over next 6 weeks - Discharge Home Score 4 - 6: 20.3% MACE over next 6 weeks - Admit for Clinical Observation Score 7 - 10: 72.7% MACE over next 6 weeks - Early Invasive Strategies (AZIZA RAZO APRN) Course & Med Decision Making: Course & Med Decision Making Pertinent Labs and Imaging studies reviewed. (See chart for details) [] 41-year-old female presents with right-sided lower, abdominal pain that radiates to her right flank. Reports symptoms started 1 month ago. Denies nausea/vomiting/diarrhea. Afebrile. Work-up in ER consisted of CBC, CMP, CT, UA abdomen and pelvis. Patient given NS bolus and Toradol for pain. Urinalysis negative for infection or blood. is negative. CT abdomen pelvis unremarkable. All labs unremarkable. Discussed results with patient. Advised patient to follow-up with her PCP for further management. Discussed return precautions at length. Patient verbalizes understanding of discharge instructions. Patient is hemodynamically stable upon disposition. (AZIZA RAZO APRN) Dragon Disclaimer: Lakshmi Disclaimer: This electronic medical record was generated, in whole or in part, using a voice recognition dictation system. (AZIZA RAZO APRN) Departure Departure: Impression: Primary Impression: Right lower quadrant abdominal pain Additional Impression: Flank pain Disposition: HOME / SELF CARE / HOMELESS Condition: STABLE Referrals: JAKUB SANTIAGO (PCP) Patient Instructions: Abdominal Pain Additional Instructions: You were seen emergency room for right lower quadrant abdominal pain along with flank pain. Your CT of your abdomen pelvis was unremarkable. All of your labs were also unremarkable. Your urine was negative for infection and blood. Continue taking ibuprofen and Tylenol at home for pain. Follow-up with your PCP tomorrow for further management. Return to emergency room if you have worsening symptoms or concerns. EMERGENCY DEPARTMENT GENERAL DISCHARGE INSTRUCTIONS Thank you for coming to [facility] (ED) today and trusting us with you care. We trust that you had a positivie experience in our Emergency Department. If you wish to speak to the department management, you may call the director at [phone]. YOUR FOLLOW UP INSTRUCTIONS ARE FOLLOWS: 1. Do you have a private Doctor? If you do not have a private doctor, please ask for a resource list of physicians or clinics that may be able to assist you with follow up care. 2. The Emergency Physician has interpreted your x-rays. The X-Ray specialist will also review them. If there is a change in the findings, you will be notified in 48 hours when at all possible. 3. A lab test or culture has been done, your results will be reviewed and you will be notified if you need a change in treatment. ADDITIONAL INSTRUCTIONS AND INFORMATION: 1. Your care today has been supervised by a physician who is specially trained in emergency care. Many problems require more than one evaluation for a complete diagnosis and treatment. We recommend that you schedule your follow up appointment as recommended to ensure complete treatment of you illness or injury. If you are unable to obtain follow up care and continue to have a problem, or if your condition worsens, we recommend that you return to the ED. 2. We are not able to safely determine your condition over the phone nor are we able to give sound medical advice over the phone. For these safety reasons, if you call for medical advice we will ask you to come to the ED for further evaluation. 3. If you have any questions regarding these discharge instructions please call the ED at [phone]. SAFETY INFORMATION: In the interest of safety, wellness, and injury prevention; we encourage you to wear your sealbelt, if you smoke; quite smoking, and we encourage family to use a protective helmet for bicycling and other sporting events that present an increased risk for head injury. IF YOUR SYMPTOMS WORSEN OR NEW SYMPTOMS DEVELOP, OR YOU HAVE CONCERNS ABOUT YOUR CONDITION; OR IF YOUR CONDITION WORSENS WHILE YOU ARE WAITING FOR YOUR FOLLOW UP APPOINTMENT; EITHER CONTACT YOUR PRIMARY CARE DOCTOR, THE PHYSICIAN WHOSE NAME AND NUMBER YOU WERE GIVEN, OR RETURN TO THE ED IMMEDIATELY. Attending Signature Attending Signature I have reviewed the PA/ANIMAL CARE TAKER's note and plan of care. I was available for consultation as needed during the patient's visit in the emergency department. I agree with the clinical impression, plan, and disposition. (RYAN BURTON DO) AZIZA RAZO APRN Nov 25, 2021 17:15 RYAN BURTON DO Nov 26, 2021 07:36
[2021-11-25 18:00] VITALS: BP 125/78
== END 2021-11-25 18:03 | disposition home or self-care (01) ==
LOC: ER 15:05
DX: R10.31 Right lower quadrant pain (principal); R31.9 Hematuria, unspecified; M79.7 Fibromyalgia; I10 Essential (primary) hypertension; F17.210 Nicotine dependence, cigarettes, uncomplicated; Z90.49 Acquired absence of other specified parts of digestive tract; Z98.890 Other specified postprocedural states; Z90.710 Acquired absence of both cervix and uterus; Z88.5 Allergy status to narcotic agent; Z91.040 Latex allergy status; Z88.8 Allergy status to other drugs, medicaments and biological substances
CPT/HCPCS: 36415; 74176; 80048; 81001; 81025; 85025; 96361; 96374; 99284; J1885; J7030

== ENCOUNTER 2021-12-22 21:17 | Emergency (ER) | payer OTHER ==
[~2021-12-22] VITALS: Ht 175.3 cm; Wt 107.2 kg
--- NOTE | 2021-12-22 22:39 | PHYS DOC ---
Past History Past Medical History: Fibromyalgia, Hypertension Additional Past Medical Histor: lupus, "clotting disorder" Past Surgical History: Cholecystectomy, , Hysterectomy Smoking: Cigarettes, Greater than 1 pack/day Alcohol Use: Rarely Drug Use: None General Adult EDM: Chief Complaint: HAND PROBLEM HPI: HPI: ".. A bar fell down and lenka crush my Lt. hand... It is still really sore.. " Patient is a 41 year old female who presents with injury to Lt hand. Area of contusion edema and ecchymosis. Patient has distal neurovascular is intact. Some tenderness on loading of fourth and fifth finger. Range of motion intact but this is with discomfort. Patient has significant past history of hypertension, fibromyalgia, lupus, coagulation defect, diabetes, GERD, anxiety, chest wall pain and tobacco use. Patient denies any immunosuppression. No recent travel. No specific ill contacts. Currently patient denies any domestic abuse or injury by her punching an object. Review of Systems: Review of Systems: Constitutional: Denies fever or chills Eyes: Denies change in visual acuity HENT: Denies nasal congestion or sore throat Respiratory: Denies cough or shortness of breath Cardiovascular: Denies chest pain or edema GI: Denies abdominal pain, nausea, vomiting, bloody stools or diarrhea : Denies dysuria Musculoskeletal: Complains of left hand contusion Integument: Denies rash Neurologic: Denies headache, focal weakness or sensory changes Endocrine: Denies polyuria or polydipsia Lymphatic: Denies swollen glands Psychiatric: Denies depression or anxiety Family History: Family History: Noncontributory to presentation Current Medications: Current Meds: See nursing for home meds Allergies: Allergies: Allergies Coded Allergies Type Severity Reaction Last Updated Verified codeine Allergy Unknown 11/25/21 Yes gabapentin Allergy Unknown 11/25/21 Yes latex Allergy Unknown 11/25/21 Yes Physical Exam: PE: Constitutional: Mild acute distress, non-toxic appearance. [] HENT: Normocephalic, atraumatic, bilateral external ears normal, oropharynx moist, no oral exudates, nose normal. [] Eyes: PERRLA, EOMI, conjunctiva normal, no discharge. [] Neck: Normal range of motion, no tenderness, supple, no stridor. [] Cardiovascular:Heart rate regular rhythm, no murmur [] Lungs & Thorax: Bilateral breath sounds equal apex scattered wheezes auscultation [] Abdomen: Bowel sounds normal, soft, no tenderness, no masses, no pulsatile masses. Surgery scars Skin: Warm, dry, no erythema, no rash. [] Back: No tenderness, no CVA tenderness. [] Extremities: Left hand tenderness, left hand ecchymosis and contusion, no cyanosis, no clubbing, ROM intact, except range of motion limited by pain in left hand, left hand edema. [] Neurologic: Alert and oriented X 3, normal motor function, normal sensory function, no focal deficits noted. [] Psychologic: Affect anxious, judgement normal, mood normal. [] Current Patient Data: Vital Signs: Vital Signs Date Time Temp Pulse Resp B/P (MAP) Pulse Ox O2 Delivery O2 Flow Rate FiO2 12/22/21 21:48 98.4 98 16 147/88 (107) 98 Room Air EKG: EKG: [] Radiology/Procedures: Radiology/Procedures: [][place] [address] IMAGING REPORT Signed PATIENT: LALIT MIRANDA MACCOUNT: [id number] : 1980 LOCATION: ER AGE: 41 SEX: F EXAM STATUS: DEP ER ORD. PHYSICIAN: BALDO OSULLIVAN MD REASON: crush injry PROCEDURE: HAND LEFT 3V XR HAND_LEFT 3 VIEWS 12/22/2021 10:42 PM INDICATION: Crush injury, pain COMPARISON: None available. TECHNIQUE: 3 views of the left hand are provided. FINDINGS/ IMPRESSION: There is cortical disruption identified along the volar base of the distal phalanx of the first digit with suspected intra-articular extension to the interphalangeal joint. Correlate with point tenderness. Bone mineralization is within normal limits. Mild soft tissue swelling. There is no soft tissue gas or osseous erosion. No radiopaque foreign body. Electronically signed by: Nicolle Huffman MD (12/23/2021 12:48 AM) [facility] DICTATED AND SIGNED BY: NICOLLE HUFFMAN MD DATE: 12/23/21 0046 CC: BALDO OSULLIVAN MD; JAKUB SANTIAGO ~ Heart Score: C/O Chest Pain: N/A Risk Factors: Risk Factors: DM, Current or recent (<one month) smoker, HTN, HLP, family history of CAD, obesity. Risk Scores: Score 0 - 3: 2.5% MACE over next 6 weeks - Discharge Home Score 4 - 6: 20.3% MACE over next 6 weeks - Admit for Clinical Observation Score 7 - 10: 72.7% MACE over next 6 weeks - Early Invasive Strategies Course & Med Decision Making: Course & Med Decision Making Pertinent Labs and Imaging studies reviewed. (See chart for details) Patient take Tylenol and ibuprofen for pain. Use ice packs. Elevate. Patient declined splinting at this time. Recommend jose-ray in 2 weeks if no improvement. Questionable area of nondisplaced fracture will show a callus at that time. Follow-up primary care. Recommend patient stop smoking. Impression: 1. Left hand contusion 2. Possible nondisplaced fracture Index- Lt. ( Not currently an area of pain) [] Dragon Disclaimer: Dragon Disclaimer: This electronic medical record was generated, in whole or in part, using a voice recognition dictation system. Departure Departure: Referrals: JAKUB SANTIAGO (PCP) Dragon Disclaimer This chart was dictated in whole or in part using Voice Recognition software in a busy, high-work load, and often noisy Emergency Department environment. It may contain unintended and wholly unrecognized errors or omissions. BALDO OSULLIVAN MD December 22, 2021 22:39
[2021-12-22] MEDS ORDERED: HYDROcodon/IBUPROFEN 7.5/200MG 1 TAB TABLET PO ONE (22:45)
[2021-12-23] VITALS: BP 146/91
--- NOTE | 2021-12-23 00:50 | RAD ---
XR HAND_LEFT 3 VIEWS 12/22/2021 10:42 PM INDICATION: Crush injury, pain COMPARISON: None available. TECHNIQUE: 3 views of the left hand are provided. FINDINGS/ IMPRESSION: There is cortical disruption identified along the volar base of the distal phalanx of the first digit with suspected intra-articular extension to the interphalangeal joint. Correlate with point tenderne ss. Bone mineralization is within normal limits. Mild soft tissue swelling. There is no soft tissue g as or osseous erosion. No radiopaque foreign body. Electronically signed by: Erica Bajwa MD (12/23/2021 12:48 AM) [facility]
== END 2021-12-23 | disposition home or self-care (01) ==
LOC: ER 21:17
DX: S60.222A Contusion of left hand, initial encounter (principal); M79.7 Fibromyalgia; I10 Essential (primary) hypertension; F17.210 Nicotine dependence, cigarettes, uncomplicated; E11.9 Type 2 diabetes mellitus without complications; K21.9 Gastro-esophageal reflux disease without esophagitis; F41.9 Anxiety disorder, unspecified; Z88.5 Allergy status to narcotic agent; Z91.040 Latex allergy status; Z88.8 Allergy status to other drugs, medicaments and biological substances; W20.8XXA Other cause of strike by thrown, projected or falling object, initial encounter; Y93.89 Activity, other specified; Y92.89 Other specified places as the place of occurrence of the external cause; Y99.8 Other external cause status
CPT/HCPCS: 73130; 99283